=== PATIENT | male | born 1955 | race Caucasian/White ===

== ENCOUNTER 2020-01-26 08:18 | Day surgery (SDC) | payer MEDICARE, MEDICAID, SELFPAY ==
[2020-01-21 11:26] VITALS: BMI 44.9
--- NOTE | 2020-01-26 09:20 | HO.ANESPROP2 ---
[facility] Past Medical History Medical History CAD (coronary artery disease) COPD (chronic obstructive pulmonary disease) Elevated cholesterol HTN (hypertension) Myocardial infarction Surgical History Surgical History History of left-sided carotid endarterectomy History of right-sided carotid endarterectomy Hx of cardiac catheterization Social History Social History Alcohol intake: current Alcohol intake frequency: a few times a week Alcohol type: beer Smoking Status: Former smoker Smoking Quit Date: 01/2019 Second Hand Smoke Exposure: Yes Use of substances other than those prescribed or required for medical reasons: No Advance Directives: No Advance Directives Information Provided: No Advance Directives on File: No Meds Allergies Allergy/AdvReac Type Severity Reaction Status Date / Time lisinopril [Lisinopril] Allergy Severe ANGIOEDEMA, Verified 01/21/20 11:11 hives Home Medications Medication Instructions Recorded Confirmed Type albuterol sulfate [Ventolin HFA] 2 puff PO Q4-6H PRN 01/21/20 01/21/20 History atorvastatin 1 tab PO DAILY 01/21/20 01/21/20 History fluticasone furoate-vilanterol 1 puff PO DAILY 01/21/20 01/21/20 History [Breo Ellipta] gabapentin 1 cap PO DAILY 01/21/20 01/21/20 History glipizide 2 tab PO BID 01/21/20 01/21/20 History insulin glargine [Basaglar KwikPen 40 unit SUBCUT BEDTIME 01/21/20 01/21/20 History U-100 Insulin] losartan 1 tab PO DAILY 01/21/20 01/21/20 History metformin 1 tab PO BID 01/21/20 01/21/20 History metoprolol ta-hydrochlorothiaz 0.5 tab PO BID 01/21/20 01/21/20 History tamsulosin 2 cap PO DAILY 01/21/20 01/21/20 History umeclidinium [Incruse Ellipta] 1 puff PO DAILY 01/21/20 01/21/20 History Exam Exam Date and Time: January 26, 202020 Height,Weight and Vital Signs: Height 5 ft 7 in Weight 130.181 kg Airway Mallampati Class: III TM Dist: >3cm Neck ROM: Full Denture: Upper Partial: Lower Loose/Missing/Broken Teeth: No Heart: rrr+[id number] Lungs: CTA b/l Assessment and Plan Assessment Anesthesia Assessment: Anesthesia Plan Discussed and Chart Reviewed Final Anesthetic Review NPO: Yes ASA Class: III Final Preanesthetic Review: No Changes in Pt Med Stat, Meds/Allgs Chart Reviewed, Consent Obtained/Reviewed and Anes Risks/Benef Reviewed Patient Risk: Intermediate Procedure Risk: Low Assessment/Block/Sedation in SS: Assess/Block/Sedation-SS Anesthetic Plan Anesthetic Plan: MAC: Disposition: Standard PACU
[2020-01-26 09:29] VITALS: BP 140/79; PULSE 62; RESP 20; TEMP 36.2; O2SAT 96
[2020-01-26 09:43] LABS: Glucose, Whole Blood 173 mg/dL (60-115)
[2020-01-26] MEDS: Lactated Ringers 1,000 ML 50 ML IVCONT (09:48)
--- NOTE | 2020-01-26 09:50 | MHC.SHP ---
Pre-Procedural Eval Section A The patient is an INPATIENT: No Changes since office visit: No Cold of Flu in the past 2 weeks, No New Medical Problems, No Changes in Medication and No Patient answered all questions The History & Physical has been completed within 30 days and I have reviewed it.: Yes Section B Chief Complaint: Change in Bowel Habit Allergies: Allergies Allergy/AdvReac Type Severity Reaction Status Date / Time lisinopril [Lisinopril] Allergy Severe ANGIOEDEMA, Verified 01/21/20 11:11 hives Plan Patient has been examined and remains a candidate for the planned procedure
[2020-01-26 10:25] VITALS: BP 100/43; PULSE 74; RESP 16; TEMP 36.6; O2SAT 96
--- NOTE | 2020-01-26 10:29 | PM.OP ---
Brief Operative Note Date of Service: 01/26/20 Pre-op diagnosis: change in bowel habits Post-op diagnosis: same (colon polyps) Surgeon: Esteban Villarreal Anesthesia: MAC Estimated blood loss (mL): 5 Pathology: other (polyps cecum,50 cm, sigmoid) Condition: stable Disposition: PACU
[2020-01-26 10:40] VITALS: BP 131/60; PULSE 73; RESP 18; TEMP 36.6; O2SAT 95
--- NOTE | 2020-01-26 10:56 | OP_ITS ---
SURGEON: Esteban Villarreal MD INDICATIONS: Change in bowel habits and rectal bleeding. PREOPERATIVE DIAGNOSIS: POSTOPERATIVE DIAGNOSIS: PROCEDURE PERFORMED: Colonoscopy to the terminal ileum with biopsy and snare polypectomy. ESTIMATED BLOOD LOSS: COMPLICATIONS: ANESTHESIA: ASSISTANTS: SPECIMENS: MEDICATIONS: Monitored anesthesia care. DESCRIPTION OF PROCEDURE: History and physical performed. The risks and benefits of the procedure were explained to the patient and informed consent was obtained. The patient was placed in the left lateral decubitus position. A digital rectal exam was performed and was found to be normal. The Olympus pediatric video colonoscope was introduced into the rectum and advanced to the cecum without difficulty. The cecum was identified by transillumination, palpation, and identification of the ileocecal valve. Examination was performed. The scope was removed. He tolerated the procedure well and returned to the recovery area in stable condition. FINDINGS: The terminal ileum was normal. Visualized colonic mucosa was normal. There was some liquid stool coating the mucosa mainly in the right colon and transverse colon. This was washed and suctioned as best possible. A polyp in the cecum, measuring less than 5 mm, was removed with a biopsy forceps. A 6 mm polyp at 50 cm was removed with a snare and recovered via suction. There were several hyperplastic appearing polyps in the sigmoid, two of these were biopsied, all measured less than 10 mm. Retroflexed examination showed small internal hemorrhoids. There was some mild diverticulosis noted in the sigmoid. IMPRESSION: Colon polyps. RECOMMENDATION: Follow up with the biopsy results. MD CECY Mayfield/YANA / [id number]
--- NOTE | 2020-01-26 11:09 | HO.POSTANES ---
Post Anesthesia Evaluation Post Anesthesia Evaluation Vital Signs: Vital Signs Temp Pulse Resp BP Pulse Ox 01/26/20 10:40 97.8 F 73 18 131/60 95 01/26/20 10:25 97.8 F 74 16 100/43 L 96 01/26/20 09:29 97.2 F 62 20 140/79 H 96 Anesthesia: Monitored Mental Status: Awake Pain Control: Satisfactory Nausea/Vomiting: None Hydration: Adequate Anesthesia-Related Issues: No Anes. Related Issues
== END 2020-01-26 11:00 | disposition home or self-care (01) ==
PROVIDERS: Visit Provider Internal Medicine Gastroenterology
PROC: 0DJD8ZZ Inspection of Lower Intestinal Tract, Via Natural or Artificial Opening Endoscopic (ICD-10-PCS; CPT 45378; principal; 2020-01-26 09:30)
DX: R19.4 Change in bowel habit (principal); K59.00 Constipation, unspecified; K63.5 Polyp of colon; K57.30 Diverticulosis of large intestine without perforation or abscess without bleeding; K64.8 Other hemorrhoids; I10 Essential (primary) hypertension; E11.9 Type 2 diabetes mellitus without complications; J44.9 Chronic obstructive pulmonary disease, unspecified; E78.00 Pure hypercholesterolemia, unspecified; I25.10 Atherosclerotic heart disease of native coronary artery without angina pectoris; Z98.61 Coronary angioplasty status; Z79.4 Long term (current) use of insulin; Z79.51 Long term (current) use of inhaled steroids; Z79.82 Long term (current) use of aspirin; Z79.899 Other long term (current) drug therapy; Z88.8 Allergy status to other drugs, medicaments and biological substances
CPT/HCPCS: 45385; 45380; 82947; 88305

== ENCOUNTER 2020-04-27 07:46 | Outpatient (REF) | payer MEDICARE, MEDICAID, SELFPAY ==
[2020-04-27 10:39] LABS: Estimated Average Glucose 180 mg/dL; Hemoglobin A1c % 7.9 %
[2020-04-27 10:47] LABS: Alanine Aminotransferase 28 U/L (0-40); Albumin Level 3.9 g/dL (3.5-5.0); Alkaline Phosphatase 91 U/L (39-117); Anion Gap 11 (12-20); Aspartate Amino Transferase 17 U/L (5-37); Bilirubin Total 0.5 mg/dL (0.0-1.0); Blood Urea Nitrogen 19 mg/dL (9-16); Calcium 8.6 mg/dL (8.4-10.2); Carbon Dioxide 30 mmol/L (22-29); Chloride 101 mmol/L (96-108); Cholesterol 111 mg/dL; Estimated Glomerular Filt Rate > 60; Glucose Fasting 114 mg/dL (60-99); HDL Cholesterol 34 mg/dL; LDL Cholesterol Calculated 58 mg/dl; Potassium 3.9 mmol/L (3.3-5.1); Sodium 138 mmol/L (135-145); Total Protein 6.4 g/dL (6.5-8.0); Triglycerides 97 mg/dL
== END 2020-04-27 07:47 | disposition home or self-care (01) ==
LOC: HO.10HDL 07:46
PROVIDERS: Visit Provider Physician Assistant
DX: E11.9 Type 2 diabetes mellitus without complications (principal)
CPT/HCPCS: 36415; 80053; 80061; 83036

== ENCOUNTER 2020-05-20 08:25 | Outpatient (REF) | payer MEDICARE, MEDICAID, SELFPAY ==
--- NOTE | ~2020-05-20 | XR_ITS ---
EXAMINATION: XR CHEST CLINICAL INFORMATION: Dyspnea. COMPARISON: None TECHNIQUE: 2 views of the chest were obtained. FINDINGS: The lungs are well-expanded and clear of acute process. The heart size and pulmonary vascularity is normal. There is moderate ventral spondylosis. No lytic process seen.. XR/XR chest 2V IMPRESSION: Unremarkable chest exam.
== END 2020-05-20 08:26 | disposition home or self-care (01) ==
LOC: HO.XRAY 08:25
PROVIDERS: PCP Physician Assistant; Visit Provider Physician Assistant
DX: R06.00 Dyspnea, unspecified (principal)
CPT/HCPCS: 71046

== ENCOUNTER 2021-01-16 07:44 | Outpatient (REF) | payer MEDICARE, MEDICAID, SELFPAY | END 2021-01-16 07:45 | disposition home or self-care (01) | LOC: HO.10HDL 07:44 | PROVIDERS: Visit Provider Physician Assistant | DX: J44.9 Chronic obstructive pulmonary disease, unspecified (principal) | CPT/HCPCS: 86900; 86901 ==

== ENCOUNTER 2021-05-02 07:35 | Outpatient (REF) | payer MEDICARE, MEDICAID, SELFPAY ==
[2021-05-02 10:34] LABS: Estimated Average Glucose 166 mg/dL; Hemoglobin A1c % 7.4 %
[2021-05-02 10:47] LABS: Alanine Aminotransferase 18 U/L (0-40); Albumin Level 4.2 g/dL (3.5-5.0); Alkaline Phosphatase 73 U/L (39-117); Anion Gap 16 (12-20); Aspartate Amino Transferase 16 U/L (5-37); Bilirubin Total 0.7 mg/dL (0.0-1.0); Blood Urea Nitrogen 19 mg/dL (9-16); Calcium 9.7 mg/dL (8.4-10.2); Carbon Dioxide 24 mmol/L (22-29); Chloride 100 mmol/L (96-108); Cholesterol 132 mg/dL; Estimated Glomerular Filt Rate > 60; Glucose Fasting 117 mg/dL (60-99); HDL Cholesterol 31 mg/dL; LDL Cholesterol Calculated 68 mg/dl; Potassium 3.9 mmol/L (3.3-5.1); Sodium 136 mmol/L (135-145); Total Protein 6.9 g/dL (6.5-8.0); Triglycerides 165 mg/dL
== END 2021-05-02 07:36 | disposition home or self-care (01) ==
LOC: HO.10HDL 07:35
PROVIDERS: Visit Provider Physician Assistant
DX: E11.40 Type 2 diabetes mellitus with diabetic neuropathy, unspecified (principal); E78.2 Mixed hyperlipidemia
CPT/HCPCS: 36415; 80053; 80061; 83036

== ENCOUNTER 2021-06-12 07:42 | Outpatient (REF) | payer MEDICARE, MEDICAID, SELFPAY ==
[2021-06-12 10:55] LABS: Estimated Average Glucose 146 mg/dL; Hemoglobin A1c % 6.7 %
[2021-06-12 11:08] LABS: Alanine Aminotransferase 21 U/L (0-40); Albumin Level 4.1 g/dL (3.5-5.0); Alkaline Phosphatase 71 U/L (39-117); Anion Gap 12 (12-20); Aspartate Amino Transferase 16 U/L (5-37); Bilirubin Total 0.5 mg/dL (0.0-1.0); Blood Urea Nitrogen 18 mg/dL (9-16); Calcium 9.3 mg/dL (8.4-10.2); Carbon Dioxide 27 mmol/L (22-29); Chloride 101 mmol/L (96-108); Cholesterol 126 mg/dL; Estimated Glomerular Filt Rate > 60; Glucose Random 102 mg/dL (60-115); HDL Cholesterol 26 mg/dL; LDL Cholesterol Calculated 69 mg/dl; Potassium 3.8 mmol/L (3.3-5.1); Sodium 136 mmol/L (135-145); Total Protein 6.7 g/dL (6.5-8.0); Triglycerides 159 mg/dL
== END 2021-06-12 07:43 | disposition home or self-care (01) ==
LOC: HO.10HDL 07:42
PROVIDERS: Visit Provider Physician Assistant
DX: E11.9 Type 2 diabetes mellitus without complications (principal)
CPT/HCPCS: 36415; 80053; 80061; 83036

== ENCOUNTER 2021-09-18 07:41 | Outpatient (REF) | payer MEDICARE, MEDICAID, SELFPAY ==
[2021-09-18 10:26] LABS: MANUAL DIFF FLAG NO
[2021-09-18 10:45] LABS: Basophils Percent Auto 0.7 % (0-2); Eosinophils Absolute Auto 0.3 X10*3/uL (0.0-0.4); Eosinophils Percent Auto 4.7 % (0-4); Hematocrit 41.2 % (42.0-52.0); Hemoglobin 13.8 g/dl (14.0-18.0); Imm Gran Abs Auto 0.03 X10*3/uL (0.00-0.03); Imm Gran Pct Auto 0.5 % (0.0-0.4); Lymphocytes Absolute Auto 1.6 X10*3/uL (1.2-4.9); Lymphocytes Percent Auto 26.4 % (20-40); Mean Corpuscular HGB Conc 33.5 g/dl (31.0-36.0); Mean Corpuscular Hemoglobin 29.1 pg (27.0-33.0); Mean Corpuscular Volume 86.9 fL (80.0-98.0); Monocytes Absolute Auto 0.4 X10*3/uL (0.1-1.2); Monocytes Percent Auto 7.2 % (2-11); Neutrophils Absolute Auto 3.7 x10*3/uL (2.0-8.3); Neutrophils Percent Auto 60.5 % (45-73); Platelet Count 175 X10*3/uL (160-400); Red Blood Count 4.74 X10*6/uL (4.60-5.80); Red Cell Distribution Width 13.1 % (11.0-16.0); White Blood Count 6.1 X10*3/uL (4.8-10.8)
[2021-09-18 10:55] LABS: Estimated Average Glucose 143 mg/dL; Hemoglobin A1c % 6.6 %
[2021-09-18 11:00] LABS: Alanine Aminotransferase 22 U/L (0-40); Albumin Level 4.2 g/dL (3.5-5.0); Alkaline Phosphatase 71 U/L (39-117); Anion Gap 12 (12-20); Aspartate Amino Transferase 19 U/L (5-37); Bilirubin Total 0.6 mg/dL (0.0-1.0); Blood Urea Nitrogen 19 mg/dL (9-16); Calcium 9.6 mg/dL (8.4-10.2); Carbon Dioxide 27 mmol/L (22-29); Chloride 101 mmol/L (96-108); Cholesterol 140 mg/dL; Estimated Glomerular Filt Rate > 60; Glucose Fasting 120 mg/dL (60-99); HDL Cholesterol 37 mg/dL; LDL Cholesterol Calculated 70 mg/dl; Potassium 3.8 mmol/L (3.3-5.1); Sodium 136 mmol/L (135-145); Total Protein 6.6 g/dL (6.5-8.0); Triglycerides 169 mg/dL
== END 2021-09-18 07:42 | disposition home or self-care (01) ==
LOC: HO.10HDLR 07:41
PROVIDERS: Visit Provider Physician Assistant
DX: E11.9 Type 2 diabetes mellitus without complications (principal); I25.10 Atherosclerotic heart disease of native coronary artery without angina pectoris; I10 Essential (primary) hypertension
CPT/HCPCS: 36415; 80053; 80061; 83036; 85025; 93005; 99212

== ENCOUNTER 2021-12-25 07:39 | Outpatient (REF) | payer MEDICARE, MEDICAID, SELFPAY ==
[2021-12-25 10:27] LABS: MANUAL DIFF FLAG NO
[2021-12-25 10:34] LABS: Basophils Percent Auto 0.7 % (0-2); Eosinophils Absolute Auto 0.2 X10*3/uL (0.0-0.4); Eosinophils Percent Auto 4.1 % (0-4); Hematocrit 37.6 % (42.0-52.0); Hemoglobin 12.9 g/dl (14.0-18.0); Imm Gran Abs Auto 0.05 X10*3/uL (0.00-0.03); Imm Gran Pct Auto 1.2 % (0.0-0.4); Lymphocytes Absolute Auto 1.1 X10*3/uL (1.2-4.9); Lymphocytes Percent Auto 26.4 % (20-40); Mean Corpuscular HGB Conc 34.3 g/dl (31.0-36.0); Mean Corpuscular Hemoglobin 29.1 pg (27.0-33.0); Mean Corpuscular Volume 84.7 fL (80.0-98.0); Monocytes Absolute Auto 0.4 X10*3/uL (0.1-1.2); Monocytes Percent Auto 10.6 % (2-11); Neutrophils Absolute Auto 2.4 x10*3/uL (2.0-8.3); Platelet Count 198 X10*3/uL (160-400); Red Blood Count 4.44 X10*6/uL (4.60-5.80); Red Cell Distribution Width 12.5 % (11.0-16.0); White Blood Count 4.2 X10*3/uL (4.8-10.8)
[2021-12-25 10:42] LABS: Estimated Average Glucose 154 mg/dL
[2021-12-25 11:24] LABS: Alanine Aminotransferase 30 U/L (0-40); Albumin Level 4.1 g/dL (3.5-5.0); Alkaline Phosphatase 87 U/L (39-117); Anion Gap 15 (12-20); Aspartate Amino Transferase 21 U/L (5-37); Bilirubin Total 0.8 mg/dL (0.0-1.0); Blood Urea Nitrogen 21 mg/dL (9-16); Calcium 9.2 mg/dL (8.4-10.2); Carbon Dioxide 27 mmol/L (22-29); Chloride 98 mmol/L (96-108); Cholesterol 137 mg/dL; Estimated Glomerular Filt Rate > 60; Glucose Fasting 134 mg/dL (60-99); HDL Cholesterol 27 mg/dL; LDL Cholesterol Calculated 68 mg/dl; Sodium 136 mmol/L (135-145); Total Protein 6.6 g/dL (6.5-8.0); Triglycerides 211 mg/dL
== END 2021-12-25 07:40 | disposition home or self-care (01) ==
LOC: HO.10HDLR 07:39
PROVIDERS: Visit Provider Physician Assistant
DX: E11.9 Type 2 diabetes mellitus without complications (principal)
CPT/HCPCS: 36415; 80053; 80061; 83036; 85025

== ENCOUNTER 2022-02-26 07:42 | Outpatient (REF) | payer MEDICARE, MEDICAID, SELFPAY ==
[2022-02-26 10:55] LABS: MANUAL DIFF FLAG NO
[2022-02-26 11:04] LABS: Basophils Percent Auto 0.7 % (0-2); Eosinophils Absolute Auto 0.3 X10*3/uL (0.0-0.4); Eosinophils Percent Auto 4.6 % (0-4); Hematocrit 42.5 % (42.0-52.0); Hemoglobin 14.2 g/dl (14.0-18.0); Imm Gran Abs Auto 0.03 X10*3/uL (0.00-0.03); Imm Gran Pct Auto 0.5 % (0.0-0.4); Lymphocytes Absolute Auto 1.7 X10*3/uL (1.2-4.9); Mean Corpuscular HGB Conc 33.4 g/dl (31.0-36.0); Mean Corpuscular Hemoglobin 28.4 pg (27.0-33.0); Mean Platelet Volume 11.2 fL (9.4-12.4); Monocytes Absolute Auto 0.4 X10*3/uL (0.1-1.2); Monocytes Percent Auto 8.1 % (2-11); Neutrophils Percent Auto 55.1 % (45-73); Platelet Count 190 X10*3/uL (160-400); Red Cell Distribution Width 12.5 % (11.0-16.0); White Blood Count 5.5 X10*3/uL (4.8-10.8)
[2022-02-26 11:11] LABS: Estimated Average Glucose 169 mg/dL; Hemoglobin A1c % 7.5 %
[2022-02-26 11:25] LABS: Alanine Aminotransferase 21 U/L (0-40); Albumin Level 4.1 g/dL (3.5-5.0); Alkaline Phosphatase 75 U/L (39-117); Anion Gap 13 (12-20); Aspartate Amino Transferase 17 U/L (5-37); Bilirubin Total 0.5 mg/dL (0.0-1.0); Blood Urea Nitrogen 20 mg/dL (9-16); Carbon Dioxide 28 mmol/L (22-29); Chloride 99 mmol/L (96-108); Cholesterol 119 mg/dL; Estimated Glomerular Filt Rate > 60; Glucose Fasting 105 mg/dL (60-99); HDL Cholesterol 36 mg/dL; LDL Cholesterol Calculated 54 mg/dl; Potassium 3.9 mmol/L (3.3-5.1); Sodium 136 mmol/L (135-145); Total Protein 6.6 g/dL (6.5-8.0); Triglycerides 145 mg/dL
== END 2022-02-26 07:43 | disposition home or self-care (01) ==
LOC: HO.10HDLR 07:42
PROVIDERS: Visit Provider Physician Assistant
DX: E11.9 Type 2 diabetes mellitus without complications (principal)
CPT/HCPCS: 36415; 80053; 80061; 83036; 85025

== ENCOUNTER 2022-05-14 07:39 | Outpatient (REF) | payer MEDICARE, MEDICAID, SELFPAY ==
[2022-05-14 11:09] LABS: MANUAL DIFF FLAG NO
[2022-05-14 11:12] LABS: Basophils Percent Auto 0.5 % (0-2); Eosinophils Absolute Auto 0.2 X10*3/uL (0.0-0.4); Hematocrit 42.4 % (42.0-52.0); Hemoglobin 14.4 g/dl (14.0-18.0); Imm Gran Abs Auto 0.03 X10*3/uL (0.00-0.03); Imm Gran Pct Auto 0.5 % (0.0-0.4); Lymphocytes Absolute Auto 1.4 X10*3/uL (1.2-4.9); Mean Corpuscular Hemoglobin 28.7 pg (27.0-33.0); Mean Corpuscular Volume 84.6 fL (80.0-98.0); Mean Platelet Volume 11.2 fL (9.4-12.4); Monocytes Absolute Auto 0.5 X10*3/uL (0.1-1.2); Neutrophils Absolute Auto 3.9 x10*3/uL (2.0-8.3); Platelet Count 193 X10*3/uL (160-400); Red Blood Count 5.01 X10*6/uL (4.60-5.80); Red Cell Distribution Width 13.2 % (11.0-16.0)
[2022-05-14 12:04] LABS: Alanine Aminotransferase 19 U/L (0-40); Albumin Level 3.9 g/dL (3.5-5.0); Alkaline Phosphatase 72 U/L (39-117); Anion Gap 15 (12-20); Aspartate Amino Transferase 18 U/L (5-37); Bilirubin Total 0.7 mg/dL (0.0-1.0); Blood Urea Nitrogen 18 mg/dL (9-16); Calcium 9.6 mg/dL (8.4-10.2); Carbon Dioxide 24 mmol/L (22-29); Chloride 101 mmol/L (96-108); Cholesterol 139 mg/dL; Estimated Glomerular Filt Rate > 60; Glucose Fasting 153 mg/dL (60-99); HDL Cholesterol 32 mg/dL; LDL Cholesterol Calculated 84 mg/dl; Potassium 4.2 mmol/L (3.3-5.1); Sodium 136 mmol/L (135-145); Total Protein 6.3 g/dL (6.5-8.0); Triglycerides 116 mg/dL
[2022-05-14 12:06] LABS: Estimated Average Glucose 166 mg/dL; Hemoglobin A1c % 7.4 %
== END 2022-05-14 07:40 | disposition home or self-care (01) ==
LOC: HO.10HDL 07:39
PROVIDERS: Visit Provider Physician Assistant
DX: E11.9 Type 2 diabetes mellitus without complications (principal)
CPT/HCPCS: 36415; 80053; 80061; 83036; 85025

== ENCOUNTER 2022-08-20 07:45 | Outpatient (REF) | payer MEDICARE, MEDICAID, SELFPAY ==
[2022-08-20 10:43] LABS: Alanine Aminotransferase 17 U/L (0-40); Albumin Level 4.3 g/dL (3.5-5.0); Alkaline Phosphatase 77 U/L (39-117); Anion Gap 14 (12-20); Aspartate Amino Transferase 15 U/L (5-37); Bilirubin Total 0.8 mg/dL (0.0-1.0); Blood Urea Nitrogen 22 mg/dL (9-16); Calcium 9.2 mg/dL (8.4-10.2); Carbon Dioxide 28 mmol/L (22-29); Chloride 100 mmol/L (96-108); Cholesterol 140 mg/dL; Estimated Glomerular Filt Rate > 60; Glucose Random 116 mg/dL (60-115); HDL Cholesterol 33 mg/dL; LDL Cholesterol Calculated 77 mg/dl; Potassium 4.1 mmol/L (3.3-5.1); Sodium 138 mmol/L (135-145); Total Protein 6.8 g/dL (6.5-8.0); Triglycerides 152 mg/dL
[2022-08-20 10:49] LABS: Estimated Average Glucose 151 mg/dL; Hemoglobin A1c % 6.9 %
[2022-08-20 11:23] LABS: Creatinine Urine 34.82 mg/dL; Microalbum/Creatinine Ratio Ur 376.2 ug/mg cr
== END 2022-08-20 07:46 | disposition home or self-care (01) ==
LOC: HO.10HDL 07:45
PROVIDERS: Visit Provider Physician Assistant
DX: E11.9 Type 2 diabetes mellitus without complications (principal)
CPT/HCPCS: 36415; 80053; 80061; 82043; 83036

== ENCOUNTER → 2022-11-09 11:33 | Outpatient (BNVA) | payer MEDICARE, MEDICAID, SELFPAY | PROVIDERS: PCP Physician Assistant; Referring Provider Physician Assistant; Visit Provider Internal Medicine Cardiovascular Disease | DX: I25.10 Atherosclerotic heart disease of native coronary artery without angina pectoris (principal); I10 Essential (primary) hypertension | CPT/HCPCS: 93005; 99212 ==

== ENCOUNTER 2022-11-09 11:35 | Outpatient (AMB) | payer MEDICARE, MEDICAID, SELFPAY ==
--- NOTE | 2022-11-09 11:35 | MHC.OFFVIS ---
Intake Vital Signs 11/09/22 11:36 Height 5 ft 8 in Weight 273 lb 5.971 oz BMI 41.6 BP 120/82 Blood Pressure Location Lt brachial Position Sitting Pulse 55 Intake Visit Reasons: 1 year follow up Intake Note: 1 year follow-up with ekg feeling good Net Mobile Developer Required: No Allergies lisinopril [Lisinopril] Allergy (Severe, Verified 09/18/21 13:18) ANGIOEDEMA, hives Medication List - Last Reconciled 11/09/22 by Manny Gamez MD albuterol sulfate 90 mcg/actuation (Ventolin HFA) 2 puffs PO Q4-6H PRN aspirin (Adult Low Dose Aspirin) 81 mg PO DAILY atorvastatin 80 mg PO DAILY fluticasone furoate-vilanterol 100-25 mcg/dose (Breo Ellipta) 1 puff PO DAILY gabapentin 1 cap PO DAILY glipizide 2 tabs PO BID insulin glargine (Basaglar KwikPen U-100 Insulin) 40 units subcut BEDTIME losartan 50 mg PO DAILY metformin 1,000 mg PO BID metoprolol ta-hydrochlorothiaz 50-25 mg 0.5 tabs PO BID tamsulosin 0.8 mg PO DAILY umeclidinium 62.5 mcg/actuation (Incruse Ellipta) 1 inh PO DAILY HPI HPI Comments History of Present Illness Details Yogi comes for follow-up. From cardiac perspective he has been doing well. He is taking all his medications. His last LDL is elevated in the upper 70 range. This has remained elevated for the last couple years. He takes all his medications. With exertion he has no anginal sounding chest discomfort. However he says that he is limited because of cramping in his legs with walking. He is being followed by vascular surgery at [facility]. He denies any other cardiac symptoms. No orthopnea, PND, leg edema. No prolonged palpitations, lightheadedness, syncope. He says diabetes under good control. [facility] Medical History CAD (coronary artery disease) COPD (chronic obstructive pulmonary disease) Elevated cholesterol HTN (hypertension) Myocardial infarction Surgical History History of left-sided carotid endarterectomy History of right-sided carotid endarterectomy Stented coronary artery Family History Father Heart disease Mother No problems noted. Social History Alcohol intake: current Alcohol intake frequency: a few times a week Alcohol type: beer Second Hand Smoke Exposure: Yes Review of Systems Const Denies chills, Denies fatigue, Denies fever(s), Denies frequent falls, Denies weakness, Denies weight gain and Denies weight loss ENT Denies dizziness Card Denies chest pain, Denies leg edema, Denies lightheadedness, Denies palpitations, Denies dyspnea, Denies dyspnea on exertion, Denies orthopnea and Denies other (loss of consciousness) Resp Denies cough, Denies dyspnea and Denies dyspnea on exertion GI Denies hematochezia and Denies change in stool character Musc Denies abnormal gait, Denies muscle weakness, Denies numbness, Denies radiating pain into limb and Denies tingling Neuro Denies abnormal gait, Denies dizziness, Denies frequent falls, Denies numbness, Denies tingling and Denies weakness Endo Denies fatigue and Denies palpitations Physical Exam Vital Signs: Last Vital Signs Pulse 55 11/09/22 11:36 BP 120/82 11/09/22 11:36 BMI result Body Mass Index 41.6 Const General: cooperative, comfortable, no acute distress, alert and awake Nutritional Appearance: obese Orientation/consciousness: patient oriented x3 Limitations: no limitations Neck Neck: Yes trachea midline, Yes supple, Yes no JVD and Yes other (Bilateral carotid endarterectomy scar) Resp Effort & Inspection: normal respiratory effort Auscultation: clear to auscultation bilaterally Cardio Jugular venous distension: no JVD Palpation: normal PMI Rate: regular rate Rhythm: regular rhythm Heart sounds: S1 normal heart sound present, S2 normal heart sound present, no click, no gallops, no murmurs and no rubs GI Inspection: Yes obesity Auscultation: normal bowel sounds Skin General skin exam: no rashes or lesions noted Neuro General: patient oriented x3 and no focal motor deficits Extrem General: Yes no clubbing, cyanosis or edema Office Procedures EKG Details: EKG shows sinus bradycardia at 55 beats per minute [id number], Complete Assessment & Plan Assessment & Plan (1) CAD (coronary artery disease): Code(s): I25.10 - Atherosclerotic heart disease of [place] coronary artery without angina pectoris Plan: CAD which has remained stable. Has diffuse vascular disease. Continue aggressive medical therapy. His LDL is not well optimized. Discussed with him avoid adding ezetimibe 10 mg to his regiment as adjuvant therapy. Role of therapy was discussed he understands agrees. Target goal LDL closer to 50 mg/dL. Follow-up lipid panel in 3 months time. Continue high-intensity statin therapy. Continue aggressive diabetes management with goal hemoglobin A1c less than 7%. Continue aggressive control blood pressure. Continue low-dose aspirin therapy for life. Advised to continue follow-up vascular disease with vascular surgery and advise me about the care as well. (2) HTN (hypertension): Code(s): I10 - Essential (primary) hypertension Plan: Hypertension is currently well optimized advised to monitor blood pressure at home maintain a log. Target goal blood pressure less than 130/84. Low-salt diet was discussed. Continue to participate in regular physical activity and weight loss program. He understands agrees. Follow up in the clinic in 1 year's time, sooner p.r.n.. Thank you for allowing me to partake in his care Orders: Orders Lipid Panel 3 Months I25.10 - Atherosclerotic heart disease of [place] coronary artery without angina pectoris Medications: New ezetimibe 10 mg PO DAILY 30 tabs 11RF Coding Level of Care Code Est Pt Level 4 (49539) Diagnoses CAD (coronary artery disease) I25.10 HTN (hypertension) I10 CPT Codes EKG - CPT: 90432-[id number], Complete ([id number])
[2022-11-09 11:36] VITALS: BP 120/82; PULSE 55; BMI 41.6
== END 2022-11-09 12:50 | disposition home or self-care (01) ==
PROVIDERS: PCP Physician Assistant; Referring Provider Physician Assistant; Visit Provider Internal Medicine Cardiovascular Disease
DX: I25.10 Atherosclerotic heart disease of native coronary artery without angina pectoris (principal); I10 Essential (primary) hypertension
CPT/HCPCS: 93010; 99214

== ENCOUNTER 2023-02-18 07:33 | Outpatient (REF) | payer MEDICARE, MEDICAID, SELFPAY ==
[2023-02-18 10:29] LABS: MANUAL DIFF FLAG NO
[2023-02-18 10:35] LABS: Basophils Absolute Auto 0.1 X10*3/uL (0.0-0.2); Basophils Percent Auto 0.7 % (0-2); Eosinophils Absolute Auto 0.3 X10*3/uL (0.0-0.4); Eosinophils Percent Auto 3.8 % (0-4); Hematocrit 40.8 % (42.0-52.0); Hemoglobin 13.5 g/dl (14.0-18.0); Imm Gran Abs Auto 0.06 X10*3/uL (0.00-0.03); Imm Gran Pct Auto 0.9 % (0.0-0.4); Lymphocytes Absolute Auto 1.9 X10*3/uL (1.2-4.9); Lymphocytes Percent Auto 27.1 % (20-40); Mean Corpuscular HGB Conc 33.1 g/dl (31.0-36.0); Mean Corpuscular Hemoglobin 28.5 pg (27.0-33.0); Mean Corpuscular Volume 86.3 fL (80.0-98.0); Monocytes Absolute Auto 0.5 X10*3/uL (0.1-1.2); Monocytes Percent Auto 7.3 % (2-11); Neutrophils Absolute Auto 4.1 x10*3/uL (2.0-8.3); Neutrophils Percent Auto 60.2 % (45-73); Platelet Count 203 X10*3/uL (160-400); Red Blood Count 4.73 X10*6/uL (4.60-5.80); Red Cell Distribution Width 12.7 % (11.0-16.0); White Blood Count 6.9 X10*3/uL (4.8-10.8)
[2023-02-18 11:04] LABS: Cholesterol 87 mg/dL (<200); HDL Cholesterol 27 mg/dL (>40); LDL Cholesterol Calculated 34 mg/dL (<100); Triglycerides 133 mg/dL (<150)
[2023-02-18 11:07] LABS: Alanine Aminotransferase 23 U/L (0-40); Alkaline Phosphatase 74 U/L (39-117); Anion Gap 14 (12-20); Aspartate Amino Transferase 18 U/L (5-37); Bilirubin Total 0.5 mg/dL (0.0-1.0); Blood Urea Nitrogen 21 mg/dL (9-16); Calcium 9.3 mg/dL (8.4-10.2); Carbon Dioxide 26 mmol/L (22-29); Chloride 102 mmol/L (96-108); Estimated Glomerular Filt Rate > 60; Glucose Random 138 mg/dL (60-115); Potassium 3.9 mmol/L (3.3-5.1); Sodium 138 mmol/L (135-145); Total Protein 6.8 g/dL (6.5-8.0)
[2023-02-18 11:09] LABS: Estimated Average Glucose 163 mg/dL; Hemoglobin A1c % 7.3 % (<6.0)
[2023-02-18 11:30] LABS: Creatinine Urine 51.17 mg/dL; Microalbum/Creatinine Ratio Ur 287.2 ug/mg cr (<30)
== END 2023-02-18 07:34 | disposition home or self-care (01) ==
LOC: HO.10HDL 07:33
PROVIDERS: PCP Physician Assistant; Visit Provider Internal Medicine Cardiovascular Disease
DX: I25.10 Atherosclerotic heart disease of native coronary artery without angina pectoris (principal); E11.9 Type 2 diabetes mellitus without complications
CPT/HCPCS: 36415; 80053; 80061; 82043; 82570; 83036; 85025

== ENCOUNTER 2023-09-16 07:34 | Outpatient (REF) | payer OTHER, SELFPAY ==
[2023-09-16 11:21] LABS: MANUAL DIFF FLAG NO
[2023-09-16 11:28] LABS: Basophils Percent Auto 0.6 % (0-2); Eosinophils Absolute Auto 0.3 X10*3/uL (0.0-0.4); Eosinophils Percent Auto 4.5 % (0-4); Hematocrit 40.4 % (42.0-52.0); Hemoglobin 13.7 g/dl (14.0-18.0); Imm Gran Abs Auto 0.05 X10*3/uL (0.00-0.03); Imm Gran Pct Auto 0.7 % (0.0-0.4); Lymphocytes Percent Auto 28.4 % (20-40); Mean Corpuscular HGB Conc 33.9 g/dl (31.0-36.0); Mean Corpuscular Volume 85.6 fL (80.0-98.0); Mean Platelet Volume 10.4 fL (9.4-12.4); Monocytes Absolute Auto 0.5 X10*3/uL (0.1-1.2); Neutrophils Absolute Auto 4.2 x10*3/uL (2.0-8.3); Neutrophils Percent Auto 58.8 % (45-73); Platelet Count 217 X10*3/uL (160-400); Red Blood Count 4.72 X10*6/uL (4.60-5.80); Red Cell Distribution Width 13.5 % (11.0-16.0); White Blood Count 7.1 X10*3/uL (4.8-10.8)
[2023-09-16 11:44] LABS: Alanine Aminotransferase 27 U/L (0-40); Albumin Level 4.1 g/dL (3.5-5.0); Alkaline Phosphatase 81 U/L (39-117); Anion Gap 12 (12-20); Aspartate Amino Transferase 20 U/L (5-37); Bilirubin Total 0.4 mg/dL (0.0-1.0); Blood Urea Nitrogen 18 mg/dL (9-16); Calcium 9.3 mg/dL (8.4-10.2); Carbon Dioxide 26 mmol/L (22-29); Chloride 103 mmol/L (96-108); Cholesterol 86 mg/dL (<200); Estimated Glomerular Filt Rate > 60; Glucose Random 111 mg/dL (60-115); HDL Cholesterol 28 mg/dL (>40); LDL Cholesterol Calculated 16 mg/dL (<100); Sodium 137 mmol/L (135-145); Total Protein 6.9 g/dL (6.5-8.0); Triglycerides 213 mg/dL (<150)
[2023-09-16 11:45] LABS: Estimated Average Glucose 148 mg/dL; Hemoglobin A1c % 6.8 % (<6.0)
== END 2023-09-16 07:35 | disposition home or self-care (01) ==
LOC: HO.10HDL 07:34
PROVIDERS: Visit Provider Physician Assistant
DX: E11.40 Type 2 diabetes mellitus with diabetic neuropathy, unspecified (principal)
CPT/HCPCS: 36415; 80053; 80061; 83036; 85025

== ENCOUNTER 2023-12-10 10:35 | Outpatient (AMB) | payer MEDICARE, MEDICAID, SELFPAY ==
[2023-12-10 10:37] VITALS: BP 124/76; PULSE 73; BMI 40.6
--- NOTE | 2023-12-10 10:37 | MHC.OFFVIS ---
Vital Signs 12/10/23 10:37 Height 5 ft 8 in Weight 266 lb 12.149 oz BMI 40.6 BP 124/76 Blood Pressure Location Lt brachial Position Sitting Pulse 73 Intake Visit Reasons: 1 year follow up Intake Note: 1 year follow-up with ekg feeling good [employer] General Supervisor Required: No Allergies lisinopril [Lisinopril] Allergy (Severe, Verified 09/18/21 13:18) ANGIOEDEMA, hives Medication List - Last Reconciled 12/10/23 by Manny Gamez MD albuterol sulfate 90 mcg/actuation (Ventolin HFA) 2 puffs PO Q4-6H PRN aspirin (Adult Low Dose Aspirin) 81 mg PO DAILY atorvastatin 80 mg PO DAILY ezetimibe 10 mg PO DAILY fluticasone furoate-vilanterol 100-25 mcg/dose (Breo Ellipta) 1 puff PO DAILY gabapentin 1 cap PO DAILY glipizide 2 tabs PO BID insulin glargine (Basaglar KwikPen U-100 Insulin) 40 units subcut BEDTIME losartan 50 mg PO DAILY metformin 1,000 mg PO BID metoprolol ta-hydrochlorothiaz 50-25 mg 0.5 tabs PO BID tamsulosin 0.8 mg PO DAILY umeclidinium 62.5 mcg/actuation (Incruse Ellipta) 1 inh PO DAILY HPI Comments Details: Yogi comes for follow-up. He has been doing well from cardiac perspective. Does no new symptoms except for his usual shortness of breath that he gets with the shortness of breath. There was no worsening. No exertional chest pain. Remains active. Takes all his medications. Blood pressure is been well controlled. Denies any prolonged palpitation is, lightheadedness, syncope. No orthopnea, PND, leg edema. [facility] Medical History COPD (chronic obstructive pulmonary disease) Elevated cholesterol Myocardial infarction CAD (coronary artery disease) HTN (hypertension) Surgical History Stented coronary artery History of left-sided carotid endarterectomy History of right-sided carotid endarterectomy Family History Father Heart disease Mother No problems noted. Social History Alcohol intake: current Alcohol intake frequency: a few times a week Alcohol type: beer Second Hand Smoke Exposure: Yes Review of Systems Const Denies chills, Denies fatigue, Denies fever(s), Denies frequent falls, Denies weakness, Denies weight gain and Denies weight loss ENT Denies dizziness Card Denies chest pain, Denies leg edema, Denies lightheadedness, Denies palpitations, Denies dyspnea, Denies dyspnea on exertion, Denies orthopnea and Denies other (loss of consciousness) Resp Denies cough, Denies dyspnea and Denies dyspnea on exertion GI Denies hematochezia and Denies change in stool character Musc Denies abnormal gait, Denies muscle weakness, Denies numbness, Denies radiating pain into limb and Denies tingling Neuro Denies abnormal gait, Denies dizziness, Denies frequent falls, Denies numbness, Denies tingling and Denies weakness Endo Denies fatigue and Denies palpitations Physical Exam Vital Signs: Last Vital Signs Pulse 73 12/10/23 10:37 BP 124/76 12/10/23 10:37 BMI result Body Mass Index 40.6 Const General: cooperative, comfortable, no acute distress, alert and awake Nutritional Appearance: obese Orientation/consciousness: patient oriented x3 Limitations: no limitations Neck Neck: Yes trachea midline, Yes supple, Yes no JVD and Yes other (Bilateral carotid endarterectomy scar) Resp Effort & Inspection: normal respiratory effort Auscultation: clear to auscultation bilaterally Cardio Jugular venous distension: no JVD Palpation: normal PMI Rate: regular rate Rhythm: regular rhythm Heart sounds: S1 normal heart sound present, S2 normal heart sound present, no click, no gallops, no murmurs and no rubs GI Inspection: Yes obesity Auscultation: normal bowel sounds Skin General skin exam: no rashes or lesions noted Neuro General: patient oriented x3 and no focal motor deficits Extrem General: Yes no clubbing, cyanosis or edema Office Procedures EKG Details: EKG shows normal sinus rhythm with nonspecific T-wave changes [id number], Complete Assessment & Plan Assessment & Plan (1) CAD (coronary artery disease): Code(s): I25.10 - Atherosclerotic heart disease of [place] coronary artery without angina pectoris Category: Medical Plan: CAD with remote stenting 10 years ago. Will schedule him for exercise myocardial perfusion imaging to evaluate for progressive coronary disease and stent patency. Will be scheduled in near future. Further treatment finding. Otherwise continue aggressive medical therapy with aspirin. LDL is significantly well optimized. I would consider stopping Zetia 10 mg. Continue atorvastatin 80 mg. Follow-up lipid panel in 3 months. Target goal LDL closer to 50 mg/dL. Continue aggressive blood pressure control. Continue participate in regular physical activity and weight loss program. (2) HTN (hypertension): Code(s): I10 - Essential (primary) hypertension Category: Medical Plan: Hypertension which is currently well optimized advised to monitor blood pressure at home maintain a log. Goal blood pressure less than 130/84. Low-salt diet was discussed advised to participate in regular physical activity and weight loss program. Will follow up in the clinic in 1 year's time, sooner p.r.n.. Thank you for allowing me to partake in his care Orders: Orders NM cardiolite stress test 2 Weeks I25.10 - Atherosclerotic heart disease of [place] coronary artery without angina pectoris, R07.9 - Chest pain, unspecified CA stress test Today I25.10 - Atherosclerotic heart disease of [place] coronary artery without angina pectoris Coding Level of Care Code Est Pt Level 4 (47910) Diagnoses CAD (coronary artery disease) I25.10 HTN (hypertension) I10 CPT Codes EKG - CPT: 12883-[id number], Complete ([id number])
== END 2023-12-10 11:03 | disposition home or self-care (01) ==
PROVIDERS: PCP Physician Assistant; Visit Provider Internal Medicine Cardiovascular Disease
DX: I25.10 Atherosclerotic heart disease of native coronary artery without angina pectoris (principal); I10 Essential (primary) hypertension
CPT/HCPCS: 93010; 99214

== ENCOUNTER → 2023-12-10 10:35 | Outpatient (BNVA) | payer OTHER, SELFPAY | PROVIDERS: PCP Physician Assistant; Visit Provider Internal Medicine Cardiovascular Disease | DX: I25.10 Atherosclerotic heart disease of native coronary artery without angina pectoris (principal); I10 Essential (primary) hypertension; R07.9 Chest pain, unspecified | CPT/HCPCS: 93005; 99212 ==

== ENCOUNTER → 2024-02-21 07:41 | Outpatient (REF) | payer MEDICARE, MEDICAID, SELFPAY ==
--- NOTE | ~2024-02-21 | NM_ITS ---
Lexiscan Myocardial perfusion study Indication: Coronary artery disease Technique: The patient was brought in for a Lexiscan perfusion study on 02/21/2024 and was injected 0.4 mg of Lexiscan intravenously. Within a minute of this injection 40 mCi of sestamibi was given intravenously. Images were obtained using the SPECT gamma camera interlaced with the gating device. Images were obtained in supine position. Resting perfusion study was performed on 02/26/2024. Patient was administered 40 mCi of sestamibi intravenously at rest. Images were then obtained in supine position. Total DLP 75 mGy-cm. Images were processed with the software and compared side to side in short axis, horizontal long axis and vertical long axis views. Findings: Raw aquisition reviewed. Right arm by patient's side. The stress perfusion study showed decreased tracer uptake along the inferior wall. With CT attenuation correction, there is improved uptake suggestive of diaphragmatic attenuation artifact. The gated study shows diminished LV systolic function with calculated LVEF of 48%. Visually, appears higher. LV cavity is normal in size. The gated study shows normal wall thickening and contraction of segments. Resting study shows decreased tracer uptake along the inferior wall. There is improved uptake with CT attenuation correction suggestive of diaphragmatic attenuation artifact. Gating at rest reveals normal wall motion with ejection fraction at 61%. The findings are consistent with fixed appearing inferior perfusion defect. No clear reversible defects. NM/NM cardiolite stress test Impression: 1. Myocardial perfusion imaging study shows probably normal myocardial perfusion. 2. Gated LVEF is 48% during stress but visually appears higher. 61% during rest. Correlate with echocardiogram. 3. Transient ischemic dilatation not present. EKG component of the test reported separately. Electronically signed by: Sebastian Iglesias MD 02/27/2024 11:02 AM SHARMILA
--- OUTSIDE RECORDS SUMMARY | 2024-02-21 07:43 | XMS_ITS | Patient Health Record ---
Author Organization [facility] Address [address] [place] [address] Care Team Providers Care Reordering Clerk Name Role Phone Henok iSerra Primary Care Provider Esteban Zuniga Jr Unavailable [phone] 1 ALLERGIES Allergen (clinical drug ingredient) Drug/Non Drug Allergy documented on EMR Reaction Allergy Type Onset Date Status lisinopril lisinopril (uncoded) Unknown Allergy Active REASON FOR REFERRAL No Information MEDICATIONS Medication SIG (Take, Route, Frequency, Duration) Notes Start Date End Date Status Simvastatin 40mg Act james Ventolin HFA Active glyBURIDE 5mg Active Losartan Potassium A ctive Gemfibrozil 600mg Ac tive Atorvastatin Calcium Active Basaglar KwikPen Act ajmes MiraLax (colon prep) 8.3 ounce ((238) grams mixed with Gatorade or Crystal Light orally begin at 5:00 p.m. the day before the procedure for 1 day 01/11/2020 Active metFORMIN HCl 1,000mg Active glipiZIDE Active Gabapentin Active Tamsulosin HCl Activ e Breo Ellipta Active Lantus Active Aspir-81 81mg Active Metoprolol Succinate 50mg Active Naproxen Active IMMUNIZATIONS Vaccine Route Administration Date Status Comme nts Influenza Unknown 12/23/2019 Administered SOCIAL HISTORY Sex Assigned At : Social History Observation Description Sex Assigned At Unknown Alcohol Screen Question Answer Notes Did you have a drink contain ing alcohol in the past year? Yes How often did you have a dri nk containing alcohol in the past year? 2 to 4 times a month (2 points) How many drinks did you have on a typical day when you were drinking in the past year? 3 or 4 drinks (1 point) Points 3 Interpretation Negative PROBLEMS Problem Type ICD Code Onset Dates Problem Status W/U Status Risk SNOMED Code Notes Problem Change in bowel habits (R19.4) Active confirmed Change in bowel habit (18892341) PLAN OF TREATMENT Future Test Test Name Order Date COLONOSCOPY 01/11/2020 Insurance Providers Payer Name Payer Address Payer Phone Subscriber Number Group Number Insured Name Patient Relationship to Insured Coverage Start Date Coverage End Date MEDICARE OF [place] [address] [place] [id number] FITZ NORRIS Self - patient is the insured MEDICAID [email or web address] [address] [place] [address] [id number] FITZ NORRIS Self - patient is the insured MEDICAL (GENERAL) HISTORY Medical History History ICD Code hypertension elevated cholesterol coronary disease with history of [place] and stent placement diabetes mellitus COPD Surgical History Surgery Date(Month/Year) cardiac catheterization with stent place ment right carotid endarterectomy
--- OUTSIDE RECORDS SUMMARY | 2024-02-21 07:43 | XMS_ITS | Continuity of Care Document ---
Author Organization [facility] Address [address] [place] [address]- Care Team Providers Care Roll On Man Name Role Phone Brandy Lindsay Primary Care Physician [phone] Encounter [facility] ACCT R [id number] Date(s): 01/29/24 - 02/05/24 [facility] [address] [place] [address]- Attending Physician: Melissa DONALDSON, Elsa Kaplan Admitting Physician: Melissa DONALDSON, Elsa Kaplan Referring Physician: Brandy Lindsay Encounter Type: Office Visit Allergies, Adverse Reactions, Alerts Substance Criticality Severity Reaction Reaction Severity Status lisinopril Active Medications ACCU-CHEK FASTCLIX LANCET DRUM ACCU-CHEK FASTCLIX LANCET DRUM, USE 3 TIMES A DAY FOR SUGAR CHECKS Start Date: 07/02/23 Status: Ordered Repeat number: 1 Albuterol (Eqv-ProAir HFA) 90 mcg/inh inhalation aerosol INHALE 2 PUFFS INTO THE LUNGS EVERY 4 TO 6 HOURS NEEDED Start Date: 09/20/20 Status: Ordered Repeat number: 1 Albuterol (Eqv-Proventil HFA) 90 mcg/inh inhalation aerosol 0 Refills, Maintenance, 07/02/23 10:13:00 AM EDT, Partial fill upon patient request if the prescription is for a schedule II opioid drug. Start Date: 07/02/23 Status: Ordered Repeat number: 1 Aspir-Low 81 mg oral enteric coated tablet 1 tablet = 81 mg, By Mouth, Daily, # 30 tablet, 11 Refills, Maintenance, 09/02/13 5:14:43 AM EDT, ECTablet, [id number] Start Date: 09/02/13 Status: Ordered Quantity: 30.0 Unit: tablet Repeat number: 12 atorvastatin 80 mg oral tablet 1 tablet = 80 mg, By Mouth, Daily at bedtime, # 30 tablet, 11 Refills, Maintenance, 09/02/13 5:16:10AM EDT, Tablet, [facility] #[id number] Start Date: 09/02/13 Status: Ordered Quantity: 30.0 Unit: tablet Repeat number: 12 atorvastatin 80 mg oral tablet TAKE 1 TABLET BY MOUTH EVERY DAY Start Date: 07/02/23 Status: Ordered Repeat number: 1 Augmentin 875 mg-125 mg oral tablet 0 Refills, Maintenance, 07/02/23 10:13:00 AM EDT, Partial fill upon patient request if the prescription is for a schedule II opioid drug. Start Date: 07/02/23 Status: Ordered Repeat number: 1 Breo Ellipta 1 puff, Inhalation, Daily, 0 Refills, Maintenance, 05/11/19 9:54:00 AM EST Start Date: 05/11/19 Status: Ordered Repeat number: 1 Breo Ellipta 100 mcg-25 mcg/inh inhalation powder 1 puffs, Inhalation, Daily, # 30 each, 0 Refills, Maintenance, 07/02/23 10:13:00 AM EDT, Powder, Partial fill upon patient request if the prescription is for a schedule II opioid drug. Start Date: 07/02/23 Status: Ordered Quantity: 30.0 Unit: each Repeat number: 1 clotrimazole 1% topical cream 45 Gm, 0 Refill(s), APPLY TO SKIN AND TOENAILS DAILY FOR 12 WEEKS, 0 Refills, 09/13/23 1:32:00 PM EDT, Partial fill upon patient request if the prescription is for a schedule II opioid drug. Start Date: 09/13/23 Status: Ordered Repeat number: 1 Compression Stockings See Instructions, # 1 pair, Refills 4, Tot. Refills 4, Maintenance, surgical, thigh-high length 20-30 mm Hg with silicone band Dx: varicose veins of left leg with pain, swelling, 06/17/17 2:25:27 PM EDT, Compound Start Date: 06/17/17 Status: Ordered Quantity: 1.0 Unit: pair Repeat number: 5 dexamethasone 2 mg oral tablet TAKE 5 TABLETS BY MOUTH AT BEDTIME FOR 5 DAYS Start Date: 07/02/23 Status: Ordered Repeat number: 1 ezetimibe 10 mg oral tablet 1 tablet = 10 mg, By Mouth, Daily, # 30 tablet, 0 Refills, Maintenance, 06/21/23 11:31:00 AM EDT, Tablet, Partial fill upon patient request if the prescription is for a schedule II opioid drug. Start Date: 06/21/23 Status: Ordered Quantity: 30.0 Unit: tablet Repeat number: 1 ezetimibe 10 mg oral tablet 1 tablet = 10 mg, By Mouth, Daily, # 90 tablet, 0 Refills, Maintenance, 07/02/23 10:13:00 AM EDT, Tablet, Partial fill upon patient request if the prescription is for a schedule II opioid drug. Start Date: 07/02/23 Status: Ordered Quantity: 90.0 Unit: tablet Repeat number: 1 FASTCLIX MIS LANCETS FASTCLIX MIS LANCETS, 0 Refills, Maintenance, 07/02/23 10:13:00 AM EDT Start Date: 07/02/23 Status: Ordered Repeat number: 1 fluticasone-vilanterol 100 mcg-25 mcg/inh inhalation powder 60 each, 0 Refill(s), INHALE 1 PUFF BY MOUTH EVERY DAY, 0 Refills, 09/13/23 1:32:00 PM EDT, Partial fill upon patient request if the prescription is for a schedule II opioid drug. Start Date: 09/13/23 Status: Ordered Repeat number: 1 Freestyle Sumi 3 [place] Freestyle Sumi 3 [place], See Instructions, # 1 each, Refills 0, Tot. Refills 0, Maintenance, Use as directed for Diabetes Control, 09/13/23 2:00:00 PM EDT, Supply, 173, cm, 09/13/23 13:33:00 EDT, Height, 124.5, kg, 06/21/23 12:40:00 EDT, Dry Weight Start Date: 09/13/23 Status: Ordered Quantity: 1.0 Unit: each Repeat number: 1 Indication: Type 2 diabetes mellitus without complications Freestyle Sumi 3 Sensor Freestyle Sumi 3 Sensor, See Instructions, # 6 each, Refills 3, Tot. Refills 3, Maintenance, Use as directed for Diabetes Control. change every 14 days, 90 days supplies, 09/13/23 2:00:00 PM EDT, Supply, 173, cm, 09/13/23 13:33:00 EDT, Height, 124.5, kg, 06/21/23 12:40:00 EDT, Dry Weight Start Date: 09/13/23 Status: Ordered Quantity: 6.0 Unit: each Repeat number: 4 Indication: Type 2 diabetes mellitus without complications gabapentin 300 mg oral capsule 300 mg, 1, capsule, By Mouth, Daily, Refills 0, Maintenance, 09/20/20 5:18:00 AM EDT, Partial fill upon patient request if the prescription is for a schedule II opioid drug. Start Date: 09/20/20 Status: Ordered Repeat number: 1 gabapentin 300 mg oral capsule 300 mg, 1, capsule, By Mouth, 3 times a day, # 270 capsule, Refills 0, Maintenance, 07/02/23 10:13:00 AM EDT, Partial fill upon patient request if the prescription is for a schedule II opioid drug. Start Date: 07/02/23 Status: Ordered Quantity: 270.0 Unit: capsule Repeat number: 1 glipiZIDE 10 mg oral tablet 1 tablet = 10 mg, By Mouth, 2 times a day, 90 days supplies, # 180 tablet, 3 Refills, Maintenance, 09/13/23 1:47:00 PM EDT, [facility]/pharmacy #[id number], Partial fill upon patient request if the prescription is for a schedule II opioid drug., 173, cm, 09/13/23 13:33:00 EDT, Height, 124.5, kg, 06/21/23 12:40:00EDT, Dry Weight Start Date: 09/13/23 Stop Date: 09/07/24 Status: Ordered Quantity: 180.0 Unit: tablet Repeat number: 4 Indication: Type 2 diabetes mellitus without complications hydrochlorothiazide 25 mg oral tablet 12.5 mg, By Mouth, Daily, Refills 0, Maintenance, 06/22/23 10:43:00 AM EDT, Partial fill upon patient request if the prescription is for a schedule II opioid drug. Start Date: 06/22/23 Status: Ordered Repeat number: 1 hydrochlorothiazide-metoprolol 25 mg-50 mg oral tablet TAKE 1/2 TABLET TWICE A DAY BY ORAL ROUTE FOR 30 DAYS. Start Date: 05/03/21 Status: Ordered Repeat number: 1 hydrochlorothiazide-metoprolol 25 mg-50 mg oral tablet 1 tablet, By Mouth, 2 times a day, # 180 tablet, 0 Refills, Maintenance, 07/02/23 10:13:00 AM EDT, Tablet, Partial fill upon patient request if the prescription is for a schedule II opioid drug. Start Date: 07/02/23 Status: Ordered Quantity: 180.0 Unit: tablet Repeat number: 1 Incruse Ellipta 62.5 mcg/inh inhalation powder 1 each, Inhalation, Every 24 hours, doses should be taken at least 24 hours apart, # 30 each, 0 Refills, Maintenance, 02/17/16 9:40:18 AM EST, Powder Start Date: 02/17/16 Status: Ordered Quantity: 30.0 Unit: each Repeat number: 1 Incruse Ellipta 62.5 mcg/inh inhalation powder 1 each, Inhalation, Every 24 hours, doses should be taken at least 24 hours apart, # 30 each, 0 Refills, Maintenance, 07/02/23 10:13:00 AM EDT, Powder, Partial fill upon patient request if the prescription is for a schedule II opioid drug. Start Date: 07/02/23 Status: Ordered Quantity: 30.0 Unit: each Repeat number: 1 iVAPs iVAPs, See Instructions, # 1 each, Refills 0, Tot. Refills 0, Maintenance, iVAPs: EPAP 9 and TVa 5.6 and PS min of 4 and PS max of 20 and TX 16 and height of 68 inches. [facility], 10/31/19 2:28:00 PM EDT, Supply Start Date: 10/31/19 Status: Ordered Quantity: 1.0 Unit: each Repeat number: 1 Lantus Solostar Pen 100 units/mL subcutaneous solution = 40 units, Subcutaneous Injection, Daily at bedtime, 90 days supplies, # 36 mL, 3 Refills, Maintenance, 09/13/23 1:46:00 PM EDT, Injection, [facility]/pharmacy #[id number], Partial fill upon patient request if theprescription is for a schedule II opioid drug., 173, cm, 09/13/23 13:33:00 EDT, Height, 124.5, kg, 06/21/23 12:40:00 EDT, Dry Weight Start Date: 09/13/23 Stop Date: 09/07/24 Status: Ordered Quantity: 36.0 Unit: mL Repeat number: 4 losartan 50 mg oral tablet 1 tablet = 50 mg, By Mouth, Daily, # 30 tablet, 0 Refills, Maintenance, 09/21/20 9:53:00 AM EDT, Tablet, Partial fill upon patient request if the prescription is for a schedule II opioid drug. Start Date: 09/21/20 Status: Ordered Quantity: 30.0 Unit: tablet Repeat number: 1 losartan 50 mg oral tablet 1 tablet = 50 mg, By Mouth, Daily, # 90 tablet, 0 Refills, Maintenance, 07/02/23 10:13:00 AM EDT, Tablet, Partial fill upon patient request if the prescription is for a schedule II opioid drug. Start Date: 07/02/23 Status: Ordered Quantity: 90.0 Unit: tablet Repeat number: 1 meclizine 25 mg oral tablet 1 tablet = 25 mg, By Mouth, 3 times a day, PRN for dizziness, # 30 tablet, 0 Refills, Maintenance, 05/04/21 9:34:00 AM EST, Tablet, [id number], Partial fill upon patient request if the prescription is for a schedule II opioid drug., 175, cm, 05/04/21 7:44:00 EST, Height, 122.1, kg, 05/03/21 1 4:13:00 EST, Dry Weight Start Date: 05/04/21 Status: Ordered Quantity: 30.0 Unit: tablet Repeat number: 1 Metformin = 1,000 mg, By Mouth, 2 times a day, 0 Refills, Maintenance, 02/17/16 9:40:41 AM EST Start Date: 02/17/16 Status: Ordered Repeat number: 1 metFORMIN 1000 mg oral tablet 1 tablet = 1,000 mg, By Mouth, 2 times a day, # 180 tablet, 0 Refills, Maintenance, 07/02/23 10:13:00 AM EDT, Tablet, Partial fill upon patient request if the prescription is for a schedule II opioid drug. Start Date: 07/02/23 Status: Ordered Quantity: 180.0 Unit: tablet Repeat number: 1 metFORMIN 1000 mg oral tablet 1 tablet = 1,000 mg, By Mouth, 2 times a day, 90 day supplies, # 180 tablet, 3 Refills, Maintenance, 09/13/23 1:48:00 PM EDT, [id number], Partial fill upon patient request if the prescription is for a schedule II opioid drug., 173, cm, 09/13/23 13:33:00 EDT, Height, 124.5, kg, 06/21/23 12:40:00 EDT, Dry Weight Start Date: 09/13/23 Stop Date: 09/07/24 Status: Ordered Quantity: 180.0 Unit: tablet Repeat number: 4 Indication: Type 2 diabetes mellitus without complications metoprolol 25 mg oral tablet, extended release 25 mg, By Mouth, Daily, Refills 0, Maintenance, 06/22/23 10:43:00 AM EDT, Partial fill upon patient request if the prescription is for a schedule II opioid drug. Start Date: 06/22/23 Status: Ordered Repeat number: 1 naproxen 500 mg oral tablet 1 tablet = 500 mg, By Mouth, 2 times a day, # 180 tablet, 0 Refills, Maintenance, 09/20/20 5:18:00 AM EDT, Tablet, Partial fill upon patient request if the prescription is for a schedule II opioid drug. Start Date: 09/20/20 Status: Ordered Quantity: 180.0 Unit: tablet Repeat number: 1 naproxen 500 mg oral tablet 1 tablet = 500 mg, By Mouth, 2 times a day, # 180 tablet, 0 Refills, Maintenance, 07/02/23 10:13:00 AM EDT, Tablet, Partial fill upon patient request if the prescription is for a schedule II opioid drug. Start Date: 07/02/23 Status: Ordered Quantity: 180.0 Unit: tablet Repeat number: 1 Ozempic (1 mg dose) 4 mg/3 mL subcutaneous solution See Instructions, INJECT 1 MG SUBCUTANEOUSLY EVERY WEEK, # 3 Unknown, 11 Refills, Maintenance, 11/13/23 8:02:00 AM EDT, [id number], 173, cm, 09/13/23 13:33:00 EDT, Height, 124.5, kg, 06/21/23 12:40:00 EDT, Dry Weight Start Date: 11/13/23 Status: Ordered Quantity: 3.0 Unit: Unknown Repeat number: 1 Physical Therapy Physical Therapy, See Instructions, # 1 each, Refills 0, Tot. Refills 0, Maintenance, Outpatient PT., 09/21/20 9:47:00 AM EDT, Supply Start Date: 09/21/20 Status: Ordered Quantity: 1.0 Unit: each Repeat number: 1 predniSONE 10 mg oral tablet 0 Refills, Maintenance, 07/02/23 10:13:00 AM EDT, Partial fill upon patient request if the prescription is for a schedule II opioid drug. Start Date: 07/02/23 Status: Ordered Repeat number: 1 PT eval and treat for vestibular rehab PT eval and treat for vestibular rehab, See Instructions, # 1 each, Refills 0, Tot. Refills 0, Maintenance, PT eval and treat for vestibular rehab, 05/04/21 9:33:00 AM EST, Compound Start Date: 05/04/21 Status: Ordered Quantity: 1.0 Unit: each Repeat number: 1 tamsulosin 0.4 mg oral capsule 0.8 mg, 2, capsule, By Mouth, Daily, Refills 0, Maintenance, 11/02/21 8:48:00 AM EDT, Partial fill upon patient request if the prescription is for a schedule II opioid drug. Start Date: 11/02/21 Status: Ordered Repeat number: 1 tamsulosin 0.4 mg oral capsule 0.4 mg, 1, capsule, By Mouth, Daily, # 90 capsule, Refills 0, Maintenance, 07/02/23 10:13:00 AM EDT,Partial fill upon patient request if the prescription is for a schedule II opioid drug. Start Date: 07/02/23 Status: Ordered Quantity: 90.0 Unit: capsule Repeat number: 1 Walker Walker, See Instructions, # 1 each, Refills 0, Tot. Refills 0, Maintenance, Rolling walker for ambulation., 09/21/20 9:48:00 AM EDT, Supply Start Date: 09/21/20 Status: Ordered Quantity: 1.0 Unit: each Repeat number: 1 Problem List Condition Confirmation Course Effective Dates Status Health St atus Informant Carotid artery stenosis Confirmed 03/29/16 Active COPD (chronic obstructive pulmonary disease) Confirmed Active CAD (coronary artery disease) Confirmed Active Diabetes, insulin Confirmed Active HLD (hyperlipidemia) Confirmed Active HTN (hypertension) Confirmed Active Sleep related hypoxia Confirmed Active Morbid obesity, actual BMI 41.17 as of 03/20/2016 Confirmed Active Obstructive sleep apnea Confirmed Active Old myocardial infarction, stents placed X2 Confirmed Active S/P hernia repair Confirmed Active Severe obesity Confirmed Active Current tobacco use Confirmed Active Treatment-emergent central sleep apnea Confirmed Active Vital Signs Most recent to oldest [Reference Range]: 1 Height 173 cm (11/20/24 10:00 AM) Weight 127.5 kg (01/29/24 10:00 AM) Oxygen Saturation [94-100 %] 93 % *L* (01/29/24 10:00 AM) Pulse Rate [55-90 bpm] 66 bpm (01/29/24 10:00 AM) Body Mass Index [18.5-24.99 kg/m2] 42.6 kg/m2 *>HHI* (01/29/24 10:00 AM) Blood Pressure [90-138/55-84 mm Hg] 110/ 60mm Hg (01/29/24 10:00 AM) Mode of Delivery (Oxygen) Room air (01/29/24 10:00 AM) Blood pressure sites Arm, right (01/29/24 10:00 AM) Weight Obtained Via Patient/family state d (01/29/24 10:00 AM) Social History Social History Type Response Smoking Status Former smoker entered on: 02/17/16 Sex Sex Representation Male (finding) Note * Elsa Mcintosh: PERFORM Event Display: Patient Education/Instruction Authored Date: Ambulatory Adult Visit Summary [facility] [address] [facility] [address] [place] [address] Name: FITZ NORRIS : 1955?? Visit: 01/29/2024 09:42?? Ambulatory Visit Instructions ?? Your Care Team Primary Care Provider Brandy Lindsay? This Visit Provider Elsa Torres NP Your Diagnosis PAD (peripheral artery disease) Carotid artery stenosis Vitals Signs Pulse Rate: 66 bpm Height: 173 cm Systolic Blood Pressure: 110 mm Hg Weight: 127.5 kg Diastolic Blood Pressure: 60 mm Hg Body Mass Index:??42.6 kg/m2??Critical Oxygen Saturation:??93 %??Low Body surface area: 2.48 Medications The list below reflects the information in our records and provided by you today along with any changes made during this visit. Please continue your medications until treatment is completed or stopped by your provider. If this is different from the information you have or there are other questions,please contact the prescribing provider. What How Much When Why Instructions Unchanged Albuterol (Albuterol (Eqv-ProAir HFA) 90 mcg/ inh inhalation aerosol) INHALE 2 PUFFS INTO THE LUNGS EVERY 4 TO 6 HOURS NEEDED ?? Unchanged Albuterol (Albuterol (Eqv-Proventil HFA) 90 mcg/ inh inhalation aerosol) Unchanged Amoxicillin-Clavulanate (Augmentin 875 mg-125 mg oral tablet) Unchanged Aspirin (Aspir-Low 81 mg oral enteric coated tablet) 1 tab(s) Oral Daily Unchanged Atorvastatin (atorvastatin 80 mg oral tablet) TAKE 1 TABLET BY MOUTH EVERY DAY ?? Unchanged Atorvastatin (atorvastatin 80 mg oral tablet) 1 tab(s) Oral Daily at Bedtime Unchanged Clotrimazole Topical (clotrimazole 1% topical cream) 45 Gm, 0 Refill(s), APPLY TO SKIN AND TOENAILS DAILY FOR 12 WEEKS ?? Unchanged Dexamethasone (dexamethasone 2 mg oral tablet) TAKE 5 TABLETS BY MOUTH AT BEDTIME FOR 5 DAYS ?? Unchanged Durable Medical Equipment (Compression Stockings) See instructions surgical, thigh-high length 20-30 mm Hg with silicone band ?? Dx: varicose veins of left leg with pain, swelling ?? Unchanged Durable Medical Equipment (Freestyle Sumi 3 [place]) See instructions Diabetes, insulin Use as directed for Diabetes Control ?? Unchanged Durable Medical Equipment (Freestyle Sumi 3 Sensor) See instructions Diabetes, insulin Use as directed for Diabetes Control. change every 14 days, 90 days supplies ?? Unchanged Durable Medical Equipment (iVAPs) See instructions iVAPs: EPAP 9 and TVa 5.6 and PS min of 4 and PS max of 20 and TX 16 and height of 68 inches. [facility] ?? Unchanged Durable Medical Equipment (Physical Therapy) See instructions Outpatient PT. ?? Unchanged Durable Medical Equipment (Walker) See instructions Rolling walker for ambulation. ?? Unchanged Ezetimibe (ezetimibe 10 mg oral tablet) 1 tab(s) Oral Daily Unchanged Ezetimibe (ezetimibe 10 mg oral tablet) 1 tab(s) Oral Daily Unchanged fluticasone-vilanterol (Breo Ellipta 100 mcg-25 mcg/ inh inhalation powder) 1 puff(s) Inhalation Daily Unchanged fluticasone-vilanterol (Breo Ellipta) 1 puff Inhalation Daily Unchanged fluticasone-vilanterol (fluticasone-vilanterol 100 mcg-25 mcg/ inh inhalation powder) 60 each, 0 Refill(s), INHALE 1 PUFF BY MOUTH EVERY DAY ?? Unchanged Gabapentin (gabapentin 300 mg oral capsule) 1 capsule Oral Daily Unchanged Gabapentin (gabapentin 300 mg oral capsule) 1 capsule Oral 3 times a day Unchanged GlipiZIDE (glipiZIDE 10 mg oral tablet) 1 tab(s) Oral Twice a day Diabetes, insulin Duration: 90 Days 90 days supplies ?? Unchanged Hydrochlorothiazide (hydrochlorothiazide 25 mg oral tablet) 12.5 Milligram Oral Daily Unchanged Hydrochlorothiazide-Metoprolol (hydrochlorothiazide-metoprolol 25 mg- 50 mg oral tablet) 1 tab(s) Oral Twice a day Unchanged Hydrochlorothiazide-Metoprolol (hydrochlorothiazide-metoprolol 25 mg- 50 mg oral tablet) TAKE 1/ 2 TABLET TWICE A DAY BY ORAL ROUTE FOR 30 DAYS. ?? Unchanged Insulin Glargine (Lantus Solostar Pen 100 units/ mL subcutaneous solution) 40 unit(s) Subcutaneous Injection Daily at Bedtime Duration: 90 Days 90 days supplies ?? Unchanged Losartan (losartan 50 mg oral tablet) 1 tab(s) Oral Daily Unchanged Losartan (losartan 50 mg oral tablet) 1 tab(s) Oral Daily Unchanged Meclizine (meclizine 25 mg oral tablet) 1 tab(s) Oral 3 times a day as needed for for dizziness Unchanged Metformin 1,000 Milligram Oral Twice a day Unchanged Metformin (metFORMIN 1000 mg oral tablet) 1 tab(s) Oral Twice a day Diabetes, insulin Duration: 90 Days 90 day supplies ?? Unchanged Metformin (metFORMIN 1000 mg oral tablet) 1 tab(s) Oral Twice a day Unchanged Metoprolol (metoprolol 25 mg oral tablet, extended release) 25 Milligram Oral Daily Unchanged Miscellaneous Rx (ACCU-CHEK FASTCLIX LANCET DRUM) USE 3 TIMES A DAY FOR SUGAR CHECKS ?? Unchanged Miscellaneous Rx (FASTCLIX MIS LANCETS) Unchanged Miscellaneous Rx (PT eval and treat for vestibular rehab) See instructions PT eval and treat for vestibular rehab ?? Unchanged Naproxen (naproxen 500 mg oral tablet) 1 tab(s) Oral Twice a day Unchanged Naproxen (naproxen 500 mg oral tablet) 1 tab(s) Oral Twice a day Unchanged PredniSONE (predniSONE 10 mg oral tablet) Unchanged semaglutide (Ozempic (1 mg dose) 4 mg/ 3 mL subcutaneous solution) See instructions INJECT 1 MG SUBCUTANEOUSLY EVERY WEEK ?? Unchanged Tamsulosin (tamsulosin 0.4 mg oral capsule) 1 capsule Oral Daily Unchanged Tamsulosin (tamsulosin 0.4 mg oral capsule) 2 capsule Oral Daily Unchanged umeclidinium (Incruse Ellipta 62.5 mcg/ inh inhalation powder) 1 Each Inhalation Every 24 hours doses should be taken at least 24 hours apart ?? Unchanged umeclidinium (Incruse Ellipta 62.5 mcg/ inh inhalation powder) 1 Each Inhalation Every 24 hours doses should be taken at least 24 hours apart ?? Medications and Immunizations Administered Medications Given During Visit No medications given during this visit.?? Allergies (NKA means No Known Allergies) lisinopril Common Emergency Awareness Tips IS IT A STROKE? Act FAST and Check for these signs: FACE Does the face look uneven? ARM Does one arm drift down? SPEECH Does their speech sound strange? TIME Call at any sign of stroke ?? Heart Attack Signs Chest discomfort: Most heart attacks involve discomfort in the center of the chest and lasts more than a few minutes, or goes away and comes back. It can feel like uncomfortable pressure, squeezing, fullness or pain. Discomfort in upper body: Symptoms can include pain or discomfort in one or both arms, back, neck, jaw or stomach. Shortness of breath: With or without discomfort. Other signs: Breaking out in a cold sweat, nausea, or lightheaded. Remember, MINUTES DO MATTER. If you experience any of these heart attack warning signs, call to get immediate medical attention! ?? Smoking can increase your chances of developing chronic health problems and can cause harmful effects to other family members in your house. If you smoke, you are strongly encouraged to quit. Please call [facility] Link at [phone] or [phone] ([phone]) or log in to [email or web address] for referrals to smoking cessation programs. ?? The National Suicide Prevention Hotline is available 01/10 if you or someone you know needs to find a reason to keep living. By calling 0-963-536-Cuiker (0383) you'll be connected to a skilled, trained counselor at a crisis center in your area. [facility] You can view and manage your care through the patient portal or by using a health care gilda of your choosing. [employer] is a website that allows you to securely view your medical information including your hospital discharge summary, office visit summaries, medications and follow-up visits. You can also request appointments, renew medications, and request access to your medical information using a health care gilda of your choosing, or just ask a question. You can enroll at [email or web address] or register during your next office visit. [facility], in keeping with [facility] guidance, no longer requires face masks for staff, patientsor visitors in most situations. Similiar to time spent indoors at other locations, there is the chance that you were exposed to repiratory viruses during your time with us (such as flu or COVID-19). If you develop symptoms concerning for a viral respiratory infection, please seek testing (and treatment if indicated) from your medical provider or home test kit. ?? Disclaimer: The information provided is of a general nature and is intended to be used in conjunction with the recommendations and advice of your health care practitioner. Every effort has been made to ensure that the information provided is accurate and complete at the time it is provided to you however, as your needs change, or, as new information becomes available, different or additional instructions may be required. ?? If you have questions, please consult with your primary care provider or pharmacist, as appropriate. This information is not intended to serve as substitution for assessment and evaluation by a qualified health care provider. If you do not have a primary care provider, you may find a [facility] provider by calling [facility] Hey, Neighbor! Link at [phone]. Patient Care team information Care Team Personnel Name: Farida Quiros RN Position: [facility] RN Member Role: Primary Care Nurse Name: Luciano Fernandez RN Position: [facility] RN Member Role: Primary Care Nurse Name: Beatrice Tello NP Position: [facility] PCO Associate Professional Member Role: Primary Care Nurse Address: [address] [place] [address]- [place] [employer]: Name: Brandy Lindsay Position: [facility] Outreach Member Role: PCP Address: [address] [place] [address] [address] [facility] [place] [address]- [place] [employer]: Name: Yi Ponce LPN Position: [facility] RN Member Role: Primary Care Nurse Care Team Related Persons Name: EMILY FORTUNE Insurance Providers Guarantor name: DERIAN Health Plan Information #: 1 Payer: [employer] P[employer] Member Number: [id number] Policy Number: NA Group Number: [facility] Health Plan Information #: 2 Payer: [employer] P[employer] Member Number: [id number] Policy Number: NA Group Number: [id number]
--- NOTE | 2024-02-21 07:44 | CA_ITS ---
Acquisition Time: 2024-02-21 08:09:30 Total Exercise Time: 00:02:00 Test Indications: CAD, SOB Medications: SEE H Protocol: LEXISCAN Max HR: 096 BPM 62% of Pred: 153 BPM Max BP: 150/080 mmHG Max Work Load: 1.0 METS Pharmacologic Stress Test with Lexiscan, while pt kicks his leg in the chair, with reports of leg weakness and SOB, no chest discomfort, with isolated PACs, with normotensive response to injection. Nondiagnostic EKG for ischemia. In recovery, pt treated with IVP Aminophylline 75mg to reverse Lexiscan, after which, pt feeling back to baseline. Nuclear images pending. Test reviewed with Dr. Gamez. Referred By: Manny Gamez Overread By: URIEL BULLARD
--- OUTSIDE RECORDS SUMMARY | 2024-02-21 07:44 | XMS_ITS | Data Portability ---
Author Organization [facility] Home Service Address [address] [place] [address] Assessment Encounter Date Assessment Date Assessment LastModified by Organization Details LastModified Time 09/17/2022 09/17/2022 The patient denies little pleasure in activities they find enjoyable, feeling depressed, difficulties sleeping, feeling tired or having little energy, change in appetite, feeling guilty, overwhelmed or unmotivated. The patient denies suicidal ideation, thoughts of hurting themselves or others. Their mood is appropriate, they show good judgement and clear understanding of the conversation. They are orientated to time, place and person. They are not expressing any concerning thoughts or actions that would need further investigation and treatment for mental health. The patient denies recent falls or recurrent falls. Denies instability, weakness, abnormal gait, or difficulties with movement. The patient wears correct, supportive shoes and is not otherwise severely visually impaired. The patient is full weight bearing and if using the assistance of a cane or walker feels supported and stable with the use of such devices. All medical conditions have been taken into account that may pose a risk for the patient for falls. Home vibha, carpets and/or rugs do not pose a challenge for the patient. The patient has been educated about the use of vitamin D supplementation for bone health and prevention of hypotensive episodes that may increase risk for fall. All question and concerns were answered to the patient's satisfaction. [email or web address] Not available 09/17/2022 10:46:14 07/01/2023 07/01/2023 Patient agreed and verbally consents to this audio and video Telehealth appt via a secure platform [email or web address] Not available 07/01/2023 15:17:00 Plan of Treatment Reminders Order Date Submit Date Provider Last Modified By Organization Details Last Modified Time Details Appointments None recorded. Lab HbA1c (hemoglobi n A1c), blood 2022 023 [facility], [address] [place] [address], [address], 3 10:55:15 CBC w/ auto diff 2022 023 [facility], [address] [place] [address], [address], 10:55:15 lipid panel, blood 2022 023 [facility], [address] [place] [address], [address], 10:55:15 CMP, serum or plasma 2022 023 [facility], [address] [place] [address], [address], 3 10:55:15 CMP, serum or plasma 2022 023 [facility], [address] [place] [address], [address], 3 11:24:04 lipid panel, blood 2022 023 [facility], [address] [place] [address], [address], 10:27:58 hemoglobin A1c, QN, blood 2022 023 [facility], [address] [place] [address], [address], 3 11:24:04 microalbum in, urine 2022 023 [facility], [address] [place] [address], [address], 3 10:27:58 CBC w/ auto diff 2022 023 [facility], [address] [place] [address], [address], 3 10:27:58 CMP, serum or plasma 2022 024 [facility], [address] [place] [address], [address], 3 11:24:04 hemoglobin A1c, QN, blood 2022 024 [facility], [address] [place] [address], [address], 3 11:24:04 CMP, serum or plasma 2023 024 [facility], [address] [place] [address], [address], 4 10:30:12 lipid panel, blood 2023 024 [facility], [address] [place] [address], [address], 4 10:30:12 hemoglobin A1c, QN, blood 2023 024 [facility], [address] [place] [address], [address], 4 10:30:12 CBC w/ auto diff 2023 024 [facility], [address] [place] [address], [address], 4 11:42:26 CBC w/ auto diff 2023 024 [facility], [address] [place] [address], [address], 4 11:42:26 CMP, serum or plasma 2023 024 [facility], [address] [facility], [place], [address], 4 10:54:08 lipid panel, blood 2023 024 [facility], [address] [facility], [place], [address], 4 10:54:08 hemoglobin A1c, QN, blood 2023 024 [facility], [address] [facility], [place], [address], 4 10:54:08 CBC w/ auto diff 2023 024 [facility], [address] [place] [address], [address], 4 10:54:08 Referral None recorded. Procedures None recorded. Surgeries None recorded. Imaging None recorded. Medication Orders tramadol 50 mg tablet 2022 023 [email or web address] [facility]/Pharmacy #[id number], [address] [place], [address], 3 10:44:04 Lantus Solostar U-100 Insulin 100 unit/mL (3 mL) subcutaneo us pen 2023 024 [facility]/Pharmacy #[id number], [address] [place], [address], 4 10:23:29 albuterol sulfate HFA 90 mcg/actuat ion aerosol inhaler 2023 024 [facility]/Pharmacy #[id number], [address] [place], [address], 4 10:26:37 prednisone 10 mg tablet 2023 024 [facility]/Pharmacy #[id number], [address] [place], [address], 4 15:17:04 amoxicilli n 875 mg-potassi um clavulanat e 125 mg tablet 2023 024 [facility]/Pharmacy #[id number], [address] [place], [address], 4 10:45:15 Patient TargetsNo targets recorded. Patient InstructionsNo instructions recorded. Reason for Referral None Reported. Results Created Date Observation Date Name Description Value Unit Range Abnormal Flag Note LastModifiedBy Organization Detail LastModifiedTime 06/23/19 24 06/22/2023 , [facility] ardio gram No observ ation record ed. [email or web address] Not Available 2023 08:49:04 Result Notes None recorded. Problems Name Problem SNOMED Code Status Onset Date Resolution Date Notes Provider Name and Address Organization Details Recorded Time Diabetes mellitus 15981851 Active 2017 Not Available [facility] 3 10:06:37 Obesity 208754171 Active 2017 Not Available [facility] 3 10:06:37 Chronic obstructiv e pulmonary disease 39640295 Active 2017 Not Available [facility] 3 10:06:37 Vertigo 518257585 Active 2017 Not Available [facility] 3 10:06:37 Essential hypertensi on 53203581 Active 2017 Not Available [facility] 3 10:06:37 Hyperchole sterolemia 94211777 Active 2017 Not Available [facility] 3 10:06:37 Vascular disorder 91301864 Active 2017 Not Available [facility] 3 10:06:37 Body mass index 30+ - obesity 698907057 Active 2018 Not Available [facility] 3 10:06:37 Type 2 diabetes mellitus 38654667 Active 2020 Not Available [facility] 3 10:06:37 Tobacco dependence syndrome 21407074 Active 2021 Not Available [facility] 3 10:06:37 Diabetic peripheral neuropathy 335883835 Active 2022 Not Available [facility] 3 10:06:37 Foot callus 190839021 Active 2022 Not Available [facility] 3 10:06:37 Low back pain 496359078 Active 2022 LISA OLIVEIRA [address], [place], [address] , [facility] 3 10:22:49 Foot ulcer due to type 2 diabetes mellitus 8690667633600 Active 2022 LISA OLIVEIRA [address], [place], [address] , [facility] 3 15:27:14 Skin ulcer 98395968 Active 2023 LISA OLIVEIRA [address],[place], [address] , [facility] 4 10:24:36 Uvulitis 317219721 Active 2023 LISA OLIVEIRA [address], [place], [address] , [facility] 4 15:14:36 Problem Notes None recorded. Procedures Surgical History Date Name Laterality Status Provider Name and Address Organization Details Recorded Time 2 Colonoscopy completed Michelle Cook [facility] 04/07/2018 08:21:02 Imaging Results Imaging Date Name Status LastModified by Organization Details LastModified Time 06/22/2023 , echocardiogram completed [email or web address] Inform ation not available 06/25/2023 08:49:04 Procedure Notes None recorded. Medical Equipment None Reported. Allergies No known drug allergies Medications Name Sig Start Date Stop Date Status Note LastModified by Organization Details LastModified Time losartan 50 mg tablet TAKE 1 TABLET BY MOUTH EVERY DAY active Not Available Not Available No t Available cyclobenzap rine 10 mg tablet PLEASE SEE ATTACHED FOR DETAILED DIRECTION S active Not Available Not Available No t Available atorvastati n 80 mg tablet TAKE 1 TABLET BY MOUTH EVERY DAY active Not Available Not Available No t Available Colace 100 mg capsule Take 1 capsule 3 times a day by oral route for 30 days. 05/16 completed Not Available Not Available Not Available prednisone 10 mg tablet PLEASE SEE ATTACHED FOR DETAILED DIRECTION S active Not Available Not Available No t Available azithromyci n 250 mg tablet TAKE 2 TABLETS BY MOUTH TODAY, THEN TAKE 1 TABLET DAILY FOR 4 DAYS 05/16 completed Not Available Not Available Not Available glipizide ER 10 mg tablet, extended release 24 hr Take 1 tablet twice a day by oral route for 90 days. 09/25 completed Not Available Not Available Not Available glipizide 10 mg tablet TAKE 1 TABLET BY MOUTH TWICE A DAY active Not Available Not Available No t Available Lantus U-100 Insulin 100 unit/mL subcutaneou s solution 04/07 completed Not Available Not Available Not Available meclizine 12.5 mg tablet TAKE 1 TABLET BY MOUTH THREE TIMES A DAY NEEDED FOR 14 DAYS active Not Available Not Available No t Available metoprolol tartrate 50 mg-hydrochl orothiazide 25 mg tablet TAKE 1/2 TABLET BY MOUTH TWICE A DAY active Not Available Not Available No t Available tramadol 50 mg tablet TAKE 1 TABLET BY MOUTH EVERY 6 HOURS NEEDED FOR 14 DAYS active Not Available Not Available No t Available acetaminoph en ER 650 mg tablet,exte nded release TAKE 2 CAPSULES BY MOUTH TWICE A DAY FOR 5 DAYS active Not Available Not Available No t Available tamsulosin 0.4 mg capsule TAKE 2 CAPSULES BY MOUTH EVERY DAY 2023 active Not Available Not Available Not Avai lable meclizine 25 mg tablet TAKE 1 TABLET BY MOUTH THREE TIMES A DAY NEEDED FOR DIZZINESS 01/08 completed Not Available Not Available Not Available baclofen 10 mg tablet TAKE 1 TABLET BY MOUTH 4 TIMES A DAY FOR 14 DAYS 05/15 completed Not Available Not Available Not Available dexamethaso ne 2 mg tablet 10/27 completed Not Available Not Available Not Available cephalexin 500 mg capsule Take 1 capsule every 8 hours by oral route. 08/25 completed Not Available Not Available Not Available metformin 1,000 mg tablet TAKE 1 TABLET BY MOUTH TWICE A DAY active Not Available Not Available No t Available gabapentin 300 mg capsule TAKE 1 CAPSULE BY MOUTH TWICE A DAY 2023 active Not Available Not Available Not Avai lable hydrocortis one 2.5 % topical cream APPLY SPARINGLY TO AFFECTED AREA 2 TO 4 TIMES A DAY 09/26 completed Not Available Not Available Not Available codeine 10 mg-guaifene sin 100 mg/5 mL oral liquid TAKE 10 ML EVERY 4 HOURS BY ORAL ROUTE. 05/16 completed Not Available Not Available Not Available albuterol sulfate HFA 90 mcg/actuati on aerosol inhaler INHALE 2 PUFFS BY MOUTH ONCE PER DAY NEEDED FOR INCREASED SHORTNESS OF BREATH active Not Available Not Available No t Available clotrimazol e 1 % topical cream APPLY TO SKIN AND TOENAILS DAILY FOR 12 WEEKS active Not Available Not Available No t Available finasteride 5 mg tablet Take 1 tablet every day by oral route. 08/25 completed Not Available Not Available Not Available glipizide 5 mg tablet TAKE 2 TABLETS BY MOUTH TWICE A DAY active Not Available Not Available No t Available naproxen 500 mg tablet TAKE 1 TABLET BY MOUTH TWICE A DAY FOR 2 WEEKS 2023 active Not Available Not Available Not Avai lable amoxicillin 875 mg-potassiu m clavulanate 125 mg tablet TAKE 1 TABLET BY MOUTH EVERY 12 HOURS FOR 10 DAYS 10/27 completed Not Available Not Available Not Available azithromyci n 500 mg tablet 11/04 completed Not Available Not Available Not Available Asprin Ec Low Dose 81 mg tablet,ricardo yed release Take 1 tablet every day by oral route. active Not Available Not Available No t Available ezetimibe 10 mg tablet TAKE 1 TABLET BY MOUTH DAILY active Not Available Not Available No t Available BD Insulin Syringe Ultra-Fine 1 mL 30 gauge x 1/2 04/07 completed Not Available Not Available Not Available Januvia 100 mg tablet TAKE 1 TABLET BY MOUTH EVERY DAY active Not Available Not Available No t Available Lantus Solostar U-100 Insulin 100 unit/mL (3 mL) subcutaneou s pen INJECT 40 UNITS SUBCUTANE OUSLY EVERY DAY AT BEDTIME active Not Available Not Available No t Available diclofenac 1 % topical gel APPLY 2 GRAMS TOPICALLY 4 TIMES PER DAY FOR 10 DAYS active Not Available Not Available No t Available Breo Ellipta 100 mcg-25 mcg/dose powder for inhalation INHALE 1 PUFF BY MOUTH EVERY DAY 2023 active Not Available Not Available Not Avai lable Incruse Ellipta 62.5 mcg/actuati on powder for inhalation INHALE 1 PUFF BY MOUTH EVERY DAY 10/27 completed Not Available Not Available Not Available Proctosol HC 2.5 % topical cream perineal applicator APPLY SPARINGLY TO AFFECTED AREA 2 TO 4 TIMES A DAY 09/26 completed Not Available Not Available Not Available Accu-Chek Guide test strips Take 1 strip 3 times a day by miscell. route as directed for 90 days. 2023 active Not Available Not Available Not Avai lable Accu-Chek Fastclix Lancet Drum USE 3 TIMES A DAY FOR SUGAR CHECKS active Not Available Not Available No t Available FreeStyle Sumi 14 Day Bayard CHECK GLUCOSE LEVEL WITH READER 3 TIMES PER DAY 07/05 completed Not Available Not Available Not Available FreeStyle Sumi 14 Day Sensor kit use as directed 2020 active Not Available Not Available Not Avai lable BD Marian 2nd Gen Pen Needle 32 gauge x 5/32 USE ONCE DAILY DIRECTED active Not Available Not Available No t Available Flucelvax Quad (PF) 60 mcg (15 mcg x 4)/0.5 mL IM syringe PHARMACY ADMINISTE RED 02/08 completed Not Available Not Available Not Available Ozempic 1 mg/dose (4 mg/3 mL) subcutaneou s pen injector INJECT 1 MG SUBCUTANE OUSLY EVERY WEEK active Not Available Not Available No t Available FreeStyle Sumi 3 Sensor device USE DIRECTED FOR DIABETES CONTROL. CHANGE EVERY 14 DAYS, 90 DAYS SUPPLIES active Not Available Not Available No t Available Ozempic 0.25 mg or 0.5 mg (2 mg/3 mL) subcutaneou s pen injector INJECT 0.25 MG SUBCUTANE OUS INJECTION EVERY WEEK ROTATE INJECTION SITES active Not Available Not Available No t Available Vitals Date Recorded Body height Body mass index (BMI) Body weight Heart rate Oxygen saturation Oxygen saturation in Arterial blood by Pulse oximetry Systolic blood pressure Diastolic blood pressure Provider Name and Address Organization Details Last Updated DateTime 3 166.37 cm 44.4 kg/m2 227098. 53 g 54 /min 96 % 96 % 142 mm[Hg] 76 mm[Hg] [facility] 3 10:29:18 Date Recorded Body height Body mass index (BMI) Body weight Heart rate Oxygen saturation Oxygen saturation in Arterial blood by Pulse oximetry Systolic blood pressure Diastolic blood pressure Provider Name and Address Organization Details Last Updated DateTime 3 166.37 cm 44.9 kg/m2 887294. 31 g 56 /min 96 % 96 % 142 mm[Hg] 68 mm[Hg] Bridget Gastelum [facility] 3 10:15:59 Date Recorded Body height Body mass index (BMI) Body weight Heart rate Oxygen saturation Oxygen saturation in Arterial blood by Pulse oximetry Systolic blood pressure Diastolic blood pressure Provider Name and Address Organization Details Last Updated DateTime 4 166.37 cm 44.9 kg/m2 267784. 31 g 60 /min 95 % 95 % 120 mm[Hg] 68 mm[Hg] Angie Rosas [facility] 4 10:03:11 Date Recorded Body height Body mass index (BMI) Body weight Heart rate Oxygen saturation Oxygen saturation in Arterial blood by Pulse oximetry Systolic blood pressure Diastolic blood pressure Provider Name and Address Organization Details Last Updated DateTime 4 166.37 cm 44 kg/m2 516369. 19 g 72 /min 95 % 95 % 130 mm[Hg] 80 mm[Hg] Fariha Jean [facility] 4 10:33:25 Social History Question Answer Notes LastModified by Organizat ion Details LastModified Time Tobacco Smoking Status Former Smoker Not Available [facility] 01/12/2020 03:36:23 What Was The Date Of Your Most Recent Tobacco Screening? 10/28/2023 [email or web address] Information not available 10/28/2023 Do You Or Have You Ever Used Any Other Forms Of Tobacco Or Nicotine? No Information not available 06/04/2023 Sex: Unknown Functional Status None recorded. Mental Status None recorded. Family History Nothing Reported. Medical History No medical history recorded. Immunizations Vaccine Type Date Status Note Provider Nam e and Address Organization Details Recorded Time COVID-19, mRNA, LNP-S, PF, 100 mcg/0.5mL dose or 50 mcg/0.25mL dose 1 completed Rohini Gisele [facility] 09/07/2020 12:02:47 Td (adult) 3 completed Rohini Jaquez [facility] 09/07/2020 12:03:07 Influenza, split virus, quadrivalent, preservative 1 completed Henok Sierra DO [address] [place], [address], [facility] 11/26/2020 13:24:41 Influenza, split virus, quadrivalent, preservative 8 completed Michelle Cook [facility] 12/09/2017 08:56:48 COVID-19, mRNA, LNP-S, PF, 100 mcg/0.5mL dose or 50 mcg/0.25mL dose 1 completed Reina Monroy [facility] 03/08/2021 11:03:32 Pneumococcal Conjugate, unspecified formulation 7 completed Chasity Galvan, ANIKA, S [address] [place], [address], [facility] 12/30/2017 09:21:11 Pneumococcal Conjugate, unspecified formulation 9 completed Chasity Galvan NP, S [address] [place], [address], [facility] 12/30/2017 09:21:37 COVID-19, mRNA, LNP-S, PF, 100 mcg/0.5mL dose or 50 mcg/0.25mL dose 2 completed Marci Ghosh [facility] 01/17/2022 13:28:00 Influenza, split virus, quadrivalent, preservative 2 completed Marci Ghosh [facility] 01/17/2022 13:28:09 influenza, unspecified formulation 3 completed Bertram Sierra [facility] 11/12/2022 13:57:37 influenza, unspecified formulation 4 completed Fariha Pena [facility] 12/06/2023 11:28:08 SARS-COV-2 (COVID-19) vaccine, UNSPECIFIED 4 [facility] 12/06/2023 11:28:15 Influenza, split virus, quadrivalent, preservative 0 completed Henok iSerra DO [address] [place] [address], [address], [facility] 01/01/2020 08:30:52 COVID-19, mRNA, LNP-S, PF, 100 mcg/0.5mL dose or 50 mcg/0.25mL dose 1 [facility] 08/31/2020 08:47:56 Past Encounters Encounter ID Performer Location Encounter Start Date Encounter Closed Date Diagnosis/Indication Diagnosis SNOMED-CT Code Diagnosis ICD10 Code [id number] Chasity Galvan NP, S [address] [address] 11/04/2017 14:09:15 11/04/2017 16:06:59 Chronic obstructive pulmonary disease 86516874 J44.9 Hypercholesterolemia 136 60100 E78.00 Essential hypertension 05561452 I10 Diabetes mellitus 601319 09 E11.9 Pain in left knee 688726 0887 42911 M25.562 [id number] Chasity Galvan NP, [address] [address] 12/30/2017 08:58:32 12/30/2017 12:33:37 Benign prostatic hyperplasia with outflow obstruction 318278185 N40.1 Hypercholesterolemia 136 86575 E78.00 Chronic ob structive pulmonary disease 62434226 J44.9 Vascular disorder 330195 09 I99.9 Essential hypertension 94773269 I10 Diabetes mellitus 454047 09 E11.9 Active or passive immunization 535101095 Z23 [id number] Chasity Galvan NP, [address] [address] 04/07/2018 13:30:45 04/07/2018 15:20:50 Diabetes mellitus 90517348 E11.9 Chronic ob structive pulmonary disease 53973228 J44.9 Cellulitis 166856161 L03 .90 Hypercholesterolemia 136 83840 E78.00 Essential hypertension 68780348 I10 Vascular disorder 651490 09 I99.9 [id number] Briseida CHRISTIANA Branham [address] [address] 08/25/2018 13:52:00 08/25/2018 14:40:43 Diabetes mellitus 00134345 E11.9 Chronic ob structive pulmonary disease 36425507 J44.9 Hypercholesterolemia 136 08855 E78.00 Essential hypertension 45940826 I10 Vascular disorder 213872 09 I99.9 Body mass index 30+ - obesity 586953143 Z68.41 Active or passive immunization 684377772 Z23 Achilles bursitis 916590 002 M76.62 Benign pro static hyperplasia 044597327 N40.0 [id number] [address] 01/12/2019 10:56:24 01/12/2019 11:58:39 Diabetes mellitus 70703337 E11.9 Chronic ob structive pulmonary disease 18245554 J44.9 Hypercholesterolemia 136 54872 E78.00 Essential hypertension 97279493 I10 Vascular disorder 325264 09 I99.9 Body mass index 30+ - obesity 741006486 Z68.41 Active or passive immunization 195403760 Z23 Achilles bursitis 257875 002 M76.62 Benign pro static hyperplasia 519524927 N40.0 Hemorrhoids 93690817 K64 .9 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 5407145968 51580 E08.42 Foot callus 920621050 L9 8.499 [id number] Briseida CHRISTIANA [place] [address] [address] 06/01/2019 09:47:09 06/01/2019 10:27:36 Chronic obstructive pulmonary disease 26190873 J44.9 Diabetes mellitus 730653 09 E11.9 Hypercholesterolemia 136 21890 E78.00 Essential hypertension 40567637 I10 Vascular disorder 536244 09 I99.9 Body mass index 30+ - obesity 129351102 Z68.41 Achilles bursitis 405726 002 M76.62 Benign pro static hyperplasia 257369190 N40.0 Hemorrhoids 14764174 K64 .9 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 4295339231 91157 E08.42 Foot callus 891096663 L9 8.499 Type 2 pallavi betes mellitus 03070206 E11.9 [id number] [address] [address] 09/01/2019 09:06:20 09/01/2019 09:43:21 Hypercholesterolemia 64244372 E78.00 Diabetes mellitus 352108 09 E11.9 Chronic ob structive pulmonary disease 15596665 J44.9 Diabetic p eripheral neuropathy 160597938 E11.40 [id number] LISA OLIVEIRA [address] [address] 12/28/2019 08:59:26 12/28/2019 09:41:52 Chronic obstructive pulmonary disease 69923393 J44.9 Essential hypertension 32621514 I10 Diabetes mellitus 411158 09 E11.9 [id number] LISA OLIVEIRA [address] [address] 03/15/2020 08:31:37 03/15/2020 10:41:45 Chronic obstructive pulmonary disease 02115475 J44.9 Acute exac erbation of chronic obstructive pulmonary disease 973356365 J44.1 Dyspnea 468763371 R06.00 [id number] LISA OLIVEIRA [address] [address] 05/16/2020 09:36:31 05/16/2020 10:20:26 Chronic obstructive pulmonary disease 13266166 J44.9 Type 2 pallavi betes mellitus 75556866 E11.9 Essential hypertension 61678971 I10 Dyspnea 974014761 R06.00 [id number] LISA OLIVEIRA [address] [address] 09/26/2020 14:13:27 09/26/2020 16:23:46 Type 2 diabetes mellitus 54679330 E11.9 Essential hypertension 05735628 I10 Chronic ob structive pulmonary disease 49782790 J44.9 Vertigo 903405745 R42 [id number] LISA OLIVEIRA [address] [place] [address] 01/30/2021 09:56:26 01/30/2021 11:18:15 Hypercholesterolemia 28595628 E78.2 Chronic ob structive pulmonary disease 89345846 J41.0 Type 2 pallavi betes mellitus 72522176 E11.9 Essential hypertension 99264557 I10 Diabetic p eripheral neuropathy 260769989 E11.40 Body mass index 30+ - obesity 711502908 Z68.41 Foot callus 329983660 L9 8.499 Neuropathy 254910382 G62 .89 [id number] LISA OLIVEIRA [address] [address] 04/12/2021 09:14:21 04/17/2021 10:51:46 Diabetic peripheral neuropathy 028021130 E11.40 Body mass index 30+ - obesity 618247481 Z68.41 Chronic ob structive pulmonary disease 16032660 J41.0 Foot callus 661645438 L9 8.499 Type 2 pallavi betes mellitus 08002134 E11.9 Strain of supraspinatus muscle AND/OR tendon 20345902 S46.012A [id number] LISA OLIVEIRA [address] [address] 05/15/2021 11:42:16 05/16/2021 08:18:27 Seborrheic keratosis 411903353 L82.1 Type 2 pallavi betes mellitus 77558898 E11.9 Essential hypertension 66980360 I10 Vertigo 568067144 R42 [id number] LISA OLIVEIRA [address] [address] 06/19/2021 13:28:12 06/20/2021 14:55:55 Type 2 diabetes mellitus 09664643 E11.9 Essential hypertension 14260199 I10 Vertigo 005854814 R42 Tobacco de pendence syndrome 40133352 F17.290 Active or passive immunization 377687517 Z23 [id number] [address] 09/25/2021 15:33:57 09/25/2021 15:58:50 Chronic obstructive pulmonary disease 62395679 J41.0 Essential hypertension 81389911 I10 Type 2 pallavi betes mellitus 67663888 E11.9 Body mass index 30+ - obesity 020516982 Z68.41 [id number] [address]ISA [address] [address] 01/08/2022 14:32:18 01/09/2022 08:33:50 Diabetes mellitus 16675812 E11.9 Essential hypertension 95645300 I10 Hypercholesterolemia 136 42467 E78.2 [id number] LISA OLIVEIRA [address] [address] 04/10/2022 08:15:36 04/13/2022 08:44:26 Chronic obstructive pulmonary disease 52123335 J41.0 Essential hypertension 11452080 I10 Type 2 pallavi betes mellitus 34630502 E11.9 Hypercholesterolemia 136 12105 E78.2 [id number] LISA OLIVEIRA [address] [address] 07/09/2022 09:47:19 07/09/2022 17:15:24 Hypercholesterolemia 38303785 E78.2 Chronic ob structive pulmonary disease 30810881 J41.0 Essential hypertension 70547770 I10 Diabetes mellitus 373502 09 E11.9 Obesity 059031393 E66.01 Type 2 pallavi betes mellitus 67890819 E11.9 Diabetic p eripheral neuropathy 008482984 E11.41 Body mass index 30+ - obesity 902093776 Z68.41 Foot callus 361509781 L9 8.499 [id number] LISA OLIVEIRA [address] [address] 09/17/2022 10:11:43 09/18/2022 09:09:14 Hypercholesterolemia 21242024 E78.2 Obesity 640134084 E66.01 Type 2 pallavi betes mellitus 47477193 E11.9 Essential hypertension 11295267 I10 [id number] LISA OLIVEIRA [address] [address] 12/31/2022 10:03:05 12/31/2022 12:33:38 Low back pain 179805223 M54.59 Essential hypertension 84263241 I10 Hypercholesterolemia 136 57332 E78.2 Type 2 pallavi betes mellitus 60453214 E11.9 [id number] LISA OLIVEIRA [address] [address] 06/04/2023 09:52:08 06/04/2023 10:30:41 Type 2 diabetes mellitus 49758129 E11.40 E11.9 Body mass index 30+ - obesity 735071754 Z68.41 Chronic ob structive pulmonary disease 21624329 J41.0 Skin ulcer 80534151 L98. 491 [id number] LISA OLIVEIRA [address] [address] 07/01/2023 09:10:33 07/02/2023 08:11:09 Uvulitis 140378449 K12.2 [id number] LISA OLIVEIRA [address] [address] 10/28/2023 10:28:56 10/28/2023 11:17:03 Foot ulcer due to type 2 diabetes mellitus 5746542369 100 E11.621 Type 2 pallavi betes mellitus 17060893 E11.40 E11.9 Depression screening 171 788130 Z13.31 Diabetes mellitus 643639 09 E11.9 Diabetic p eripheral neuropathy 029167960 E11.41 Chronic ob structive pulmonary disease 75682519 J41.0 Essential hypertension 54909771 I10 Health Concerns Section Related Observation LastModified by Organization Detai ls LastModified Time None Recorded Concern Status LastModified by Organization Details LastModified Time None Recorded Advance Directives Directive None Recorded Payers Encounter Date Sequence Insurance Name Policy Number Policy Byers Covered Member ID Byers Member ID Guarantor Name 09/17/2022 1 [place] [facility] Yogi Mayo [id number] Yogi Mayo 09/17/2022 1 [place] [employer] [facility] Yogi Mayo [id number] Yogi Mayo 12/31/2022 1 [place] [facility] Yogi Mayo [id number] Yogi Mayo 12/31/2022 1 [place] [employer] Yogi Connerointe [id number] Yogi Fuchs Gael 06/04/2023 1 [facility] - DOS ON OR AFTER 2022 - MEDICARE [place]ANTAGE [place] VANTAGE - PPO) Ygoi Connerointe [id number] Yogi Connerointe 07/01/2023 1 [facility] ALLIANCE - DOS ON OR AFTER 2022 - [place]ANT[place] - [place]PO) Yogi Fuchs Gael [id number] Yogi Connerointe 10/28/2023 1 [facility] ALLIANCE - DOS ON OR AFTER 2022 - [place]ANTAGE - PPO) Yogi Fuchs Gael [id number] Yogi Mayo Notes Date Note Type Note Provider Name and Address Organization Details Recorded Time 09/17/2022 text/html medication check HLD: the bw was wnl obesity: discussed dietary changes and activity level vertigo: mild episode last weekdoing wellno prolonged issues his A1c is 6.9% which is excellenthis cholesterol looked excellent as well BP elevated in office but that tends to be normal for him; recheck is normal LISA OLIVEIRA [address], [place], [address], [facility] 09/17/2022 10:50:51 12/31/2022 text/html f/u low back charley n and med check low back painsaw , no changes in the XRgiven medication from finally sees PT tomorrowwill give tramadol PRN for sleep and so he can perform PT and sleep LISA OLIVEIRA [address], [place], [address], [facility] 12/31/2022 10:44:08 06/04/2023 text/html F/U Diabetes the patient reports he is having some mucus in the morning, told to adjust his CPAP moisture settings will see if that works A1c is stable, 7.2%continue on medications BMI is still elevated which pt is aware will set up standing orders for patient no questions, no changes today [facility] [address] [facility] [place], [address], [facility] 06/04/2023 10:29:53 07/01/2023 text/html [facility] The patient is participating in this appointment via telemedicine communication with a phone call/video calling service ([employer])The patient consents to use of these platforms in place of an in-person appointment due to either sick symptoms the patient is presenting with or current office closure due to COVID exposure in order to keep our office staff and patients safe the patient reports he was sent to the ER due to uvulitis, very swollen, choked on it, couldn't breathe the patient reports that he was started on abx and steroids IV, was not d/c with anything no additional abx or steroid will start him on abx or steroid combination since he is still exhibiting symptoms including swollen uvula, sore throat, productive cough will fu with me on saturday with [facility] call sooner if he develops sob or fever LISA OLIVEIRA [address] [facility] [address], [place], [address], [facility] 07/01/2023 15:20:05 10/28/2023 text/html f/u 3 mos foot ulcer T2DM: resolved T2DM: the patient A1c is 6.8% HTN: today in the office the patient BP is 130/80 L arm sitting the patient is doing well on the BP medication with no side effects and no adjustment of their medications needed today at the appointment well-controlled on medication denies chest pain, sob, ankle swelling, orthopnea, palpitations COPD: stable LISA OLIVEIRA [address] [facility],[address], [place], [address], [facility] 10/28/2023 10:54:07
== END ==
LOC: HO.CARD 07:41
PROVIDERS: PCP Physician Assistant; Visit Provider Internal Medicine Cardiovascular Disease
DX: R07.9 Chest pain, unspecified (principal); I25.10 Atherosclerotic heart disease of native coronary artery without angina pectoris
CPT/HCPCS: 78452; 93017; A9500; J0280; J2785

== ENCOUNTER → 2024-02-21 07:44 | Outpatient (BNV) | payer MEDICARE, MEDICAID, SELFPAY | PROVIDERS: PCP Physician Assistant; Visit Provider Nurse Practitioner Family | DX: I49.1 Atrial premature depolarization (principal); R06.02 Shortness of breath | CPT/HCPCS: 78452; 93016; 93018 ==

== ENCOUNTER → 2024-03-25 09:32 | Outpatient (REF) | payer MEDICARE, SELFPAY ==
--- NOTE | 2024-03-25 09:36 | CA_ITS ---
Transthoracic Echocardiogram Patient (Last, First, Middle): Yogi Mayo C Gender: Male Date of : 1955 Age: 68 Procedure Date: 03/25/2024 Procedure Type: Transthoracic Echocardiogram Location: OP Height: 172.72 cm Weight: 120.66 kg BSA: 2.31 m2 Heart Rate: bpm BP: 140 / 70 mmHg Business Analyst Sales Operations: MEGAN Gandhi MD: Janny GALLAGHER Field Contractor: Manny Gamez MD Symptoms: I25.10 - Atherosclerotic heart disease of [place] coronary artery without... Study Quality: Fair/Contrast ECG Rhythm: Sinus Conclusions: - 1. Low normal LV ejection fraction with mild LVH with LVEF of 50-55% with elevated filling pressures 2. Moderately dilated right ventricle with preserved systolic function 3. Mildly dilated left atrium 4. Mild aortic stenosis 5. Normal RV systolic pressure 6. Mildly dilated ascending aorta 3.9 cm 7. No gross pericardial effusion Findings Procedure Information Contrast agent, definity, is being given per protocol without apparent complications. Left Ventricle Normal left ventricular cavity size. There is mildly increased left ventricular wall thickness. The left ventricular systolic function is low normal. The visually estimated ejection fraction is between 50-55%. Regional wall motion abnormalities can not be excluded due to suboptimal endocardial definition. Spectral Doppler is indicative of an impaired relaxation filling pattern. Elevated filling pressures. E/E prime ratio is >15, consistent with elevated filling pressures. Right Ventricle Moderately increased right ventricular cavity size. There is normal right ventricular systolic function. Atria The left atrium is mildly dilated. There is lipomatous hypertrophy of the interatrial septum. There is no evidence of interatrial shunt. The right atrium is likely dilated. Aortic Valve There is mild calcification of the aortic valve. There is mild thickening of the aortic valve. There is mild aortic valve stenosis. There is no aortic valve regurgitation. Mitral Valve There is mild anterior and moderate posterior mitral leaflet thickening. There is moderate mitral annular calcification. There is trace mitral valve regurgitation. There is no mitral valve stenosis. Pulmonic Valve The pulmonic valve is likely normal. Tricuspid Valve Normal tricuspid valve structure. There is mild tricuspid valve regurgitation. The right ventricular systolic pressure is normal. The right ventricular systolic pressure is 30 mmHg. Normal right atrial pressure. There is no evidence of pulmonary hypertension. Great Vessels The pulmonary artery was not well visualized. There is mild dilatation of the ascending aorta measuring 3.90 cm. Small plaque is seen in the sinuses of Valsalva. Venous The inferior vena cava is normal in size and collapses greater than 50% with inspiration. Pericardium/Pleural There is no evidence of pericardial effusion. Prior Study Comparison no previous study in the last 5 years for comparison Measurements 2D Linear Measurements IVSd: 1.18 0.6-0.9/0.6-1.0 cm LVIDd: 5.61 3.9-5.3/4.2-5.9 cm LVIDd Index: 2.43 2.4-3.2/2.2-3.1 cm/m2 LVIDs: 4.45 2.0-3.6 cm LVPWd: 1.20 0.7-1.1 cm Ao Root: 4.20 2.1-3.5 cm LA Diam: 4.30 2.7-3.8/3.0-4.0 cm LAIDs Index: 1.86 1.5-2.3 cm/m2 LV Mass: 346.86 67-162/88-224 g LV Mass Index: 150.16 43-95/49-115 g/m2 LVOT Diam: 2.10 3.0+(-)1.3 cm 2D Systolic Function EF 4C: 53.60 >55% EF 2C: 51.70 >55% EF BiP: 52.30 >55% Mitral Valve MV Pk E: 0.85 MV PK A: 1.18 MV Decel Time: 274.00 E/A: 0.70 E'Lateral: 5.11 E'Medial: 4.68 E/E' Med: 18.10 E/E' Lat: 16.60 PHT: 80.00 MVA PHT: 2.75 Decel [place]: 3.10 Aortic Valve AoV Pk [place]: 2.21 AoV Mn [place]: 1.52 AoV VTI: 0.49 AoV Pk Grad: 20.00 Aov Mn Grad: 11.00 LAYLA Cont.VTI: 1.98 LVOT LVOT Pk [place]: 1.14 LVOT Mn [place]: 0.82 LVOT VTI: 0.28 LVOT Pk Grad: 5.00 LVOT Mn Grad: 3.00 LVOT Diam: 2.10 LVOT Area: 3.46 Diastolic Function MV Pk E: 0.85 MV Pk A: 1.18 E/A: 0.70 E'Medial: 4.68 E/E' Med: 18.10 E' Laterial: 5.11 E/E' Lat: 16.60 Right Ventricle TAPSE (mm): 29.50 TVS' [place]: 15.20 Tricuspid Valve TR Pk [place]: 2.36 TR Pk Grad: 22.00 RA Press: 8.00 RVSP: 30.00 Great Vessels Aorta Ao Root-2D: 4.20 2.0-3.7 cm Ao Asc: 3.90 2.1-3.4 cm Ao Arch: 2.70 Updated in Other Vendor System with Status of Final Manny Gamez MD electronically signed on 03/26/2024 12:26:28 PM with status of Final
--- OUTSIDE RECORDS SUMMARY | 2024-03-25 10:11 | XMS_ITS | Data Portability ---
Author Organization [facility] Home Service Address [address] [place] [address] Assessment Encounter Date Assessment Date Assessment LastModified [...] HbA1c (hemoglobi n A1c), blood 2022 023 [facility], [address] [place] [address], [address], 3 10:55:15 CBC w/ auto diff 2022 023 [facility], [address] [place] [address], [address], 10:55:15 lipid panel, blood 2022 023 [facility], [address] [place] [address], [address], 10:55:15 CMP, serum or plasma 2022 023 [facility], [address] [place] [address], [address], 3 10:55:15 CMP, serum or plasma 2022 023 [facility], [address] [place] [address], [address], 3 11:24:04 lipid panel, blood 2022 023 [facility], [address] [place] [address], [address], 10:27:58 hemoglobin A1c, QN, blood 2022 023 [facility], [address] [place] [address], [address], 3 11:24:04 microalbum in, urine 2022 023 [facility], [address] [place] [address], [address], 3 10:27:58 CBC w/ auto diff 2022 023 [facility], [address] [place] [address], [address], 3 10:27:58 CMP, serum or plasma 2022 024 [facility], [address] [place] [address], [address], 3 11:24:04 hemoglobin A1c, QN, blood 2022 024 [facility], [address] [place] [address], [address], 3 11:24:04 CMP, serum or plasma 2023 024 [facility], [address] [place] [address], [address], 4 10:30:12 lipid panel, blood 2023 024 [facility], [address] [place] [address], 269[address], 4 10:30:12 hemoglobin A1c, QN, blood 2023 024 [facility], [address] [place] [address], [address], 4 10:30:12 CBC w/ auto diff 2023 024 [facility], [address] [place] [address], 10[address], 4 11:42:26 CBC w/ auto diff 2023 024 [facility], [address] [place] [address], [address], 4 11:42:26 CMP, serum or plasma 2023 024 [facility], [address] [facility], [place], [address], 4 10:54:08 lipid panel, blood 2023 024 [facility], [address] [facility], [place], [address], 4 10:54:08 hemoglobin A1c, QN, blood 2023 024 [facility], [address] [facility], [place], [address], 4 10:54:08 CBC w/ auto diff 2023 024 [facility], [address] [place] [address], [address], 4 10:54:08 Referral None recorded. Procedures None recorded. Surgeries None recorded. Imaging None recorded. Medication Orders tramadol 50 mg tablet 2022 023 [email or web address] [facility]Pharmacy #[id number], [address] [place], [address], 3 10:44:04 Lantus Solostar U-100 Insulin 100 unit/mL (3 mL) subcutaneo us pen 2023 024 [facility][id number], [address] [place], [address], 4 10:23:29 albuterol sulfate HFA 90 mcg/actuat ion aerosol inhaler 2023 024 [facility] #[id number], [address] [place], [address], 4 10:26:37 prednisone 10 mg tablet 2023 024 [facility] #[id number], [address] [place], [address], 4 15:17:04 amoxicilli n 875 mg-potassi um clavulanat e 125 mg tablet 2023 024 [facility] #[id number], [address] [place], [address], 4 10:45:15 Patient TargetsNo targets recorded. Patient InstructionsNo instructions recorded. Reason for Referral None Reported. Results Created Date Observation Date Name Description Value Unit Range Abnormal Flag Note LastModifiedBy Organization Detail LastModifiedTime 06/23/19 24 06/22/2023 US, echoc ardio gram No observ ation record ed. [email or web address] Not Available 2023 08:49:04 02/27/20 24 02/21/2024 myoca rdial perfu evans study w/ eject ion fract ion (PROC ) No observ ation record ed. [facility] (Medical Records) [address] [place] [address], [address], 02/27/2024 19:24:57 Result Notes None recorded. Problems Name Problem SNOMED Code Status Onset Date Resolution Date Notes Provider Name and Address Organization Details Recorded Time Diabetes mellitus 14231147 Active 2017 Not Available [facility] 3 10:06:37 Obesity 614709306 Active 2017 Not Available [facility] 3 10:06:37 Chronic obstructi ve pulmonary disease 45997130 Active 2017 Not Available [facility] 3 10:06:37 Vertigo 508538726 Active 2017 Not Available [facility] 3 10:06:37 Essential hypertens ion 39326714 Active 2017 Not Available [facility] 3 10:06:37 Hyperchol esterolem ia 61972480 Active 2017 Not Available [facility] 3 10:06:37 Vascular disorder 73241420 Active 2017 Not Available [facility] 3 10:06:37 Body mass index 30+ - obesity 528050165 Active 2018 Not Available [facility] 3 10:06:37 Type 2 diabetes mellitus 26614725 Active 2020 Not Available [facility] 3 10:06:37 Tobacco dependenc e syndrome 87358836 Active 2021 Not Available [facility] 3 10:06:37 Diabetic periphera l neuropath y 112560640 Active 2022 Not Available [facility] 3 10:06:37 Foot callus 463989468 Active 2022 Not Available [facility] 3 10:06:37 Low back pain 567794363 Active 2022 LISA OLIVEIRA [address] [place] [address], [phone], [facility] 3 10:22:49 Foot ulcer due to type 2 diabetes mellitus 201330658342 0 Active 2022 LISA OLIVEIRA [address] [place] [address], [address], [facility] 3 15:27:14 Skin ulcer 60023301 Active 2023 LISA OLIVEIRA [address] [place] [address], [address], [facility] 4 10:24:36 Uvulitis 118723065 Active 2023 LISA OLIVEIRA [address] [place] [address], [address], [facility] 4 15:14:36 Problem Notes None recorded. Procedures Surgical History Date Name Laterality Status Provider Name and Address Organization Details Recorded Time 2 Colonoscopy completed Michelle Cook [facility] 04/07/2018 08:21:02 Imaging Results Imaging Date Name Status LastModified by Organization Details LastModified Time 06/22/2023 US, echocardiogram completed [email or web address] Inform ation not available 06/25/2023 08:49:04 02/21/2024 myocardial perfusion study w/ ejection fraction (PROC) completed [facility] (Medical Records) [address] [facility], [place], [address], 02/27/2024 19:24:57 Procedure Notes None recorded. Medical Equipment None [...] THREE TIMES A DAY NEEDED FOR DIZZINESS 10/31 /2022 completed Not Available Not Available Not Available [...] 2023 active Not Available Not Available Not Avitalia lable Incruse Ellipta 62.5 mcg/actuati on powder [...] 2023 active Not Available Not Available Not [employer] lable Accu-Chek Fastclix Lancet Drum USE 3 TIMES A DAY FOR SUGAR CHECKS active Not Available Not Available No t Available FreeStyle Sumi 14 Day [place] CHECK GLUCOSE LEVEL WITH READER 3 TIMES PER DAY 07/05 completed Not Available Not Available Not Available FreeStyle Sumi 14 Day Sensor kit use as directed 2020 active Not Available Not Available Not [employer] lable BD Marian 2nd Gen Pen Needle [...] Updated DateTime 3 166.37 cm 44.4 kg/m2 756419. 53 g 54 /min 96 % 96 % 142 mm[Hg] 76 mm[Hg] Angie Pillai [facility] 3 10:29:18 Date Recorded Body height Body mass index (BMI) Body weight Heart rate Oxygen saturation Oxygen saturation in Arterial blood by Pulse oximetry Systolic blood pressure Diastolic blood pressure Provider Name and Address Organization Details Last Updated DateTime 3 166.37 cm 44.9 kg/m2 332602. 31 g 56 /min 96 % 96 % 142 mm[Hg] 68 mm[Hg] Bridget Gastelum [facility] 3 10:15:59 Date Recorded Body height Body mass index (BMI) Body weight Heart rate Oxygen saturation Oxygen saturation in Arterial blood by Pulse oximetry Systolic blood pressure Diastolic blood pressure Provider Name and Address Organization Details Last Updated DateTime 4 166.37 cm 44.9 kg/m2 782081. 31 g 60 /min 95 % 95 % 120 mm[Hg] 68 mm[Hg] Angie Pillai [facility] 4 10:03:11 Date Recorded Body height Body mass index (BMI) Body weight Heart rate Oxygen saturation Oxygen saturation in Arterial blood by Pulse oximetry Systolic blood pressure Diastolic blood pressure Provider Name and Address Organization Details Last Updated DateTime 4 166.37 cm 44 kg/m2 451908. 19 g 72 /min 95 % 95 % 130 mm[Hg] 80 mm[Hg] Fariha Pena [facility] 4 10:33:25 Social History Question Answer Notes LastModified by Organizat ion Details LastModified Time Tobacco Smoking Status Former Smoker Not Available [facility] 01/12/2020 03:36:23 What Was The Date Of Your Most Recent Tobacco Screening? 10/28/2023 [email or web address] Information not available 10/28/2023 Do You Or Have You Ever Used Any Other Forms Of Tobacco Or Nicotine? No [email or web address] Information not available 06/04/2023 Sex: Unknown Functional Status None recorded. Mental Status None recorded. Family History Nothing Reported. Medical History No medical history recorded. Immunizations Vaccine Type Date Status Note Provider Nam e and Address Organization Details Recorded Time COVID-19, mRNA, LNP-S, PF, 100 mcg/0.5mL dose or 50 mcg/0.25mL dose 1 completed Rohini josé [facility] 09/07/2020 12:02:47 Td (adult) 3 completed Rohini josé [facility] 09/07/2020 12:03:07 Influenza, split virus, quadrivalent, preservative 1 completed Henok Sierra DO [address] [place] [address], [phone], [facility] 11/26/2020 13:24:41 Influenza, split virus, quadrivalent, preservative 8 completed [facility] 12/09[facility]2017 08:56:48 COVID-19, mRNA, LNP-S, PF, 100 mcg/0.5mL dose or 50 mcg/0.25mL dose 1 [facility] 03/08/2021 11:03:32 Pneumococcal Conjugate, unspecified formulation 7 completed Chasity Galvan NP, S [address] [place] [address], [phone], [facility] 12/30/2017 09:21:11 Pneumococcal Conjugate, unspecified formulation 9 completed Chasity Galvan NP, S [address] [place] [address], [phone], [facility] 12/30/2017 09:21:37 COVID-19, mRNA, LNP-S, PF, 100 mcg/0.5mL dose or 50 mcg/0.25mL dose 2 completed Marci josé, [facility] 01/17/2022 13:28:00 Influenza, split virus, quadrivalent, preservative [address] [facility], [facility] 01/17/2022 13:28:09 influenza, unspecified formulation [address] [facility], [facility] 11/12/2022 13:57:37 influenza, unspecified formulation [address] [facility], [facility] 12/06/2023 11:28:08 SARS-COV-2 (COVID-19) vaccine, UNSPECIFIED 4 completed Fariha Pena [facility] 12/06/2023 11:28:15 Influenza, split virus, quadrivalent, preservative 0 completed Henok Sierra, [address] [place] [address], [phone], [facility] 01/01/2020 08:30:52 COVID-19, mRNA, LNP-S, PF, 100 mcg/0.5mL dose or 50 mcg/0.25mL dose 1 completed Reina Monroy [facility] 08/31/2020 08:47:56 Past Encounters Encounter ID Performer Location Encounter Start Date Encounter Closed Date Diagnosis/Indication Diagnosis SNOMED-CT Code Diagnosis ICD10 Code Diagnosis Note [id number] Chasity Galvan NP, [address] [place] [address] 11/04/2017 14:09:15 11/04/2017 16:06:59 Chronic obstructive pulmonary disease 90280340 J44.9 Hypercholesterolemia 136 61361 E78.00 Essential hypertension 63637558 I10 Diabetes mellitus 628271 09 E11.9 Pain in left knee 518360 2308 56014 M25.562 [id number] Chasity Galvan NP, S [address],[place] [address] 12/30/2017 08:58:32 12/30/2017 12:33:37 Benign prostatic hyperplasia with outflow obstruction 124374127 N40.1 was not taking- restart Hypercholesterolemia 136 33163 E78.00 HDL 33, encourage activity Chronic ob structive pulmonary disease 67885903 J44.9 stable- no recent exacerbati on Vascular disorder 009263 09 I99.9 up to date cardiologi st and vascular Essential hypertension 40408350 I10 stable Diabetes mellitus 849463 09 E11.9 A1C 7.2-follow Active or passive immunization 159855130 Z23 had flu vaccine, up to date pneumonia vaccines [id number] Chasity Galvan, ANIKA, S [facility] [address] [facility],[place] [address] 04/07/2018 13:30:45 04/07/2018 15:20:50 Diabetes mellitus 45782689 E11.9 A1C 7.2-follow Chronic ob structive pulmonary disease 08029020 J44.9 stable- no recent exacerbati on Cellulitis 664685230 L03 .90 if worse or no better-com e back in Hypercholesterolemia 136 35343 E78.00 HDL 33, encourage activity Essential hypertension 62666415 I10 stable Vascular disorder 728670 09 I99.9 up to date cardiologi st and vascular [id number] June CHRISTIANA Branham [facility] [address] [facility],[place] [address] 08/25/2018 13:52:00 08/25/2018 14:40:43 Diabetes mellitus 93695279 E11.9 a1c 7.6 (up from 7.2) has lost weight though through keto diet recommende d to monitor blood sugar closely on this diet as he may go low with carb restrictio n and insulin continue current regimen continue weight loss Chronic ob structive pulmonary disease 92971058 J44.9 stable- no recent exacerbati on Hypercholesterolemia 136 82150 E78.00 HDL 36, up from 33 LDL well within goal range Essential hypertension 48416386 I10 stable Vascular disorder 361309 09 I99.9 s/p carotid endarterec roz stent in heart up to date cardiologi st and vascular Body mass index 30+ - obesity 683107051 Z68.41 losing weight Active or passive immunization 603606364 Z23 Achilles bursitis 711616 002 M76.62 nsaids + ortho referral Benign pro static hyperplasia 348787444 N40.0 still waking up at least 5-6 times per night, which is actually improved from previously [id number] [facility] [address] [facility], [place] [address] 01/12/2019 10:56:24 01/12/2019 11:58:39 Diabetes mellitus 09373709 E11.9 a1c is 7.2, down from 7.6 previously continue current regimen continue weight loss Chronic ob structive pulmonary disease 69973255 J44.9 stable- still quite a bit of exertional sob no recent exacerbati ons will trial breo continue incruse and ventolin as needed has quit smoking lives with a smoker Hypercholesterolemia 136 56654 E78.00 stable Essential hypertension 46595176 I10 stable Vascular disorder 141563 09 I99.9 s/p carotid endarterec roz stent in heart up to date cardiologi st and vascular Body mass index 30+ - obesity 994704981 Z68.41 losing weight Active or passive immunization 015841943 Z23 Achilles bursitis 206667 002 M76.62 saw ortho, will hold off on further therapy may consider second op in not improvemen t by march Benign pro static hyperplasia 429676839 N40.0 still waking up at least 5-6 times per night, despite the flomax Hemorrhoids 75652345 K64 .9 if bleeding persists after 2-3 weeks, plan is to see gi 2/2 constipati on 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 7679415819 70420 E08.42 continue diabetic shoe wear Foot callus 307736693 L9 8.499 continue diabetic shoe wear [id number] June Carrol [facility] [address] [facility],[address] [place] [place] [address] 06/01/2019 09:47:09 06/01/2019 10:27:36 Chronic obstructive pulmonary disease 71582035 J44.9 continue breo+ incruse and very rare need for rescue inhaler has quit smoking lives with a smoker Diabetes mellitus 073030 09 E11.9 a1c is up to 7.9 would like to work on diet Hypercholesterolemia 136 68084 E78.00 stable Essential hypertension 44110332 I10 mildly elevated Vascular disorder 477815 09 I99.9 s/p carotid endarterec roz stent in heart up to date cardiologi st and vascular Body mass index 30+ - obesity 121791376 Z68.41 plan to work on diet for better dm control and weight loss Achilles bursitis 592487 002 M76.62 saw ortho, will hold off on further therapy may consider second op in not improvemen t by march Benign pro static hyperplasia 900647399 N40.0 seeing urology Hemorrhoids 37413279 K64 .9 still hvaing constipati on no more blood in the stool would like to see GI 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 5316707641 93361 E08.42 continue diabetic shoe wear Foot callus 112985107 L9 8.499 continue diabetic shoe wear Type 2 pallavi betes mellitus 85058525 E11.9 [id number] LISA OLIVEIRA Internal [facility] [address] [facility],[place] [address] 09/01/2019 09:06:20 09/01/2019 09:43:21 Hypercholesterolemia 66897248 E78.00 didn't get it done will give him paperwork again Diabetes mellitus 782690 09 E11.9 a1c is down Chronic ob structive pulmonary disease 08701318 J44.9 stable Diabetic p eripheral neuropathy 295352661 E11.40 would like to start gabapentin for neuropathy for his feet [id number] LISA OLIVEIRA [facility] [address] [facility],[address] [place] [address] 12/28/2019 08:59:26 12/28/2019 09:41:52 Chronic obstructive pulmonary disease 65957357 J44.9 stable Essential hypertension 59643089 I10 fine today will continue to monitor Diabetes mellitus 143912 09 E11.9 a1c needs recheck [id number] LISA OLIVEIRA [facility] [address] [facility],[place] [address] 03/15/2020 08:31:37 03/15/2020 10:41:45 Chronic obstructive pulmonary disease 13704210 J44.9 will treat his symptoms in the mean time, he is out of his inhalers so will supply him with them for COPD control Acute exac erbation of chronic obstructive pulmonary disease 127825438 J44.1 will treat with pred taper and abx to mitigate his symptoms until he can be tested will fu with results will call if symptoms worsen Dyspnea 500347453 R06.00 will see if taper works with increasing his ability to breath, to breath more easily [id number] LISA OLIVEIRA [facility] [address] [facility],[place] [address] 05/16/2020 09:36:31 05/16/2020 10:20:26 Chronic obstructive pulmonary disease 10952178 J44.9 stable, no interventi on needed Type 2 pallavi betes mellitus 29895283 E11.9 stable, no interventi on Essential hypertension 87994699 I10 will recheck at next appt Dyspnea 837689424 R06.00 pred taper worked excellent while patient had COVID, will check lungs to see if any longer term damage still having very mild sob [id number] LISA OLIVEIRA [facility] [address] [facility],[place] [address] 09/26/2020 14:13:27 09/26/2020 16:23:46 Type 2 diabetes mellitus 05553616 E11.9 stable, no interventi on Essential hypertension 70418587 I10 will recheck at next appt Chronic ob structive pulmonary disease 99899621 J44.9 stable, no interventi on needed Vertigo 381915641 R42 will fu with PT which he was given referral from hospitalwi ll give him the exercise to try at home by himself [id number] LISA OLIVEIRA [facility] [address] [facility],[place] [address] 01/30/2021 09:56:26 01/30/2021 11:18:15 Hypercholesterolemia 57510547 E78.2 didn't get it done will give him paperwork again Chronic ob structive pulmonary disease 29334011 J41.0 stable, no interventi on needed Type 2 pallavi betes mellitus 98209647 E11.9 stable, no interventi on given free style free sample Essential hypertension 75256866 I10 will recheck at next appt Diabetic p eripheral neuropathy 846621795 E11.40 having issues with his insuance with his metformin Body mass index 30+ - obesity 523742749 Z68.41 discussed diet and exercise Foot callus 024544016 L9 8.499 stable Neuropathy 473275525 G62 .89 will increase the gabapentin to 300 mg BID [id number] LISA OLIVEIRA [facility] [address] [place] [address],[place] [address] 04/12/2021 09:14:21 04/17/2021 10:51:46 Diabetic peripheral neuropathy 782605954 E11.40 having issues with his insuance with his metformin Body mass index 30+ - obesity 016965485 Z68.41 discussed diet and exercise Chronic ob structive pulmonary disease 84742567 J41.0 stable, no interventi on needed Foot callus 936168188 L9 8.499 stable Type 2 pallavi betes mellitus 92099008 E11.9 stable, no interventi ongiven free style free sample Strain of supraspinatus muscle AND/OR tendon 36931440 S46.012A will start on medication [id number] LISA OLIVEIRA [facility] [address] [place] [address],[place] [address] 05/15/2021 11:42:16 05/16/2021 08:18:27 Seborrheic keratosis 053978255 L82.1 will fu with derm Type 2 pallavi betes mellitus 84188239 E11.9 stable, no interventi ongiven free style free sample Essential hypertension 37092422 I10 stable Vertigo 706878944 R42 resolved [id number] LISA OLIVEIRA [facility] [address] [place] [address],[place] [address] 06/19/2021 13:28:12 06/20/2021 14:55:55 Type 2 diabetes mellitus 87245823 E11.9 stable, no interventi ongiven free style free sample Essential hypertension 95906072 I10 stable Vertigo 798151645 R42 PT tomorrow Tobacco de pendence syndrome 35705225 F17.290 discussed Active or passive immunization 240775939 Z23 advised [id number] LISA OLIVEIRA [facility] [address] [facility],[place] [address] 09/25/2021 15:33:57 09/25/2021 15:58:50 Chronic obstructive pulmonary disease 33752577 J41.0 stable, no interventi on needed Essential hypertension 64261797 I10 stable Type 2 pallavi betes mellitus 97139864 E11.9 stable, no interventi ongiven free style free sample Body mass index 30+ - obesity 752228808 Z68.41 discussed diet and exercise [id number] LISA OLIVEIRA [facility] Internal [facility] [address] [facility],[place] [address] 01/08/2022 14:32:18 01/09/2022 08:33:50 Diabetes mellitus 95471709 E11.9 a1c needs recheck Essential hypertension 24883929 I10 stable Hypercholesterolemia 136 37599 E78.2 stable [id number] LISA OLIVEIRA [facility] Internal [facility] [address] [facility],[place] [address] 04/10/2022 08:15:36 04/13/2022 08:44:26 Chronic obstructive pulmonary disease 28507560 J41.0 stable, no interventi on needed Essential hypertension 68794910 I10 stable Type 2 pallavi betes mellitus 53499060 E11.9 needs to work on diet Hypercholesterolemia 136 76129 E78.2 stable [id number] LISA OLIVEIRA [facility] Internal Medicine [address] [facility],[place] [address] 07/09/2022 09:47:19 07/09/2022 17:15:24 Hypercholesterolemia 18380494 E78.2 stable Chronic ob structive pulmonary disease 61678264 J41.0 stable, no interventi on needed Essential hypertension 58243919 I10 stable Diabetes mellitus 449502 09 E11.9 a1c needs recheck Obesity 390962385 E66.01 stable Type 2 pallavi betes mellitus 15654310 E11.9 needs to work on diet Diabetic p eripheral neuropathy 597656683 E11.41 having issues with his insuance with his metformin Body mass index 30+ - obesity 297127107 Z68.41 discussed diet and exercise Foot callus 061605536 L9 8.499 stable [id number] LISA OLIVEIRA [facility] Internal Medicine [address] [facility],[place] [address] 09/17/2022 10:11:43 09/18/2022 09:09:14 Hypercholesterolemia 76087585 E78.2 stable Obesity 005705347 E66.01 stable Type 2 pallavi betes mellitus 84346280 E11.9 A1c is 6.9% Essential hypertension 28845284 I10 stablebett er with recheck [id number] LISA OLIVEIRA [facility] Internal Medicine [address] [facility],[place] [address] 12/31/2022 10:03:05 12/31/2022 12:33:38 Low back pain 194568163 M54.59 will start on tramadol Essential hypertension 48256369 I10 stablebett er with recheck Hypercholesterolemia 136 70086 E78.2 stablerech rohit lab work Type 2 pallavi betes mellitus 96391866 E11.9 A1c is 6.9% [id number] LISA OLIVEIRA [facility] Internal Medicine [address] [facility],[place] [address] 06/04/2023 09:52:08 06/04/2023 10:30:41 Type 2 diabetes mellitus 68070106 E11.40 E11.9 continue on medication as prescribed Body mass index 30+ - obesity 958082119 Z68.41 discussed diet and exercise Chronic ob structive pulmonary disease 23038544 J41.0 stable, no interventi on needed Skin ulcer 40695913 L98. 491 resolved [id number] LISA OLIVEIRA [facility] Internal Medicine [address] [facility] [address] 07/01/2023 09:10:33 07/02/2023 08:11:09 Uvulitis 965595323 K12.2 agreed to abx and steroid taper after the fact [id number] LISA OLIVEIRA [facility] Internal Medicine [address] [facility],[place] [address] 10/28/2023 10:28:56 10/28/2023 11:17:03 Foot ulcer due to type 2 diabetes mellitus 2435403070 100 E11.621 stable Type 2 pallavi betes mellitus 15155847 E11.40 E11.9 stablesees endo Depression screening 171 020219 Z13.31 Diabetes mellitus 470069 09 E11.9 a1c needs recheck Diabetic p eripheral neuropathy 457174833 E11.41 having issues with his insuance with his metformin Chronic ob structive pulmonary disease 27692873 J41.0 stable, no interventi on needed Essential hypertension 99704170 I10 stablebett er with recheck Health Concerns Section Related Observation LastModified by Organization Detai ls LastModified Time None Recorded Concern Status LastModified by Organization Details LastModified Time None Recorded Advance Directives Directive None Recorded Payers Encounter Date Sequence Insurance Name Policy Number Policy Byers Covered Member ID Byers Member ID Guarantor Name 09/17/2022 1 [place] Fuchs Gael [id number] Yogi Mayo 09/17/2022 1 [place] [employer] Yogi Mayo [id number] Yogi Mayo 12/31/2022 1 [place] [facility]ogi Shila Mayo [id number] Yogi Mayo 12/31/2022 1 [place] [employer] Yogi Mayo [id number] Yogi Mayo 06/04/2023 1 [facility] CARE ALLIANCE - DOS ON OR AFTER 2022 - MEDIC[place]AGE [place]ANT[place] - PPO) Yogi Mayo [id number] Yogi Mayo 07/01/2023 1 [facility] CARE [employer] - DOS ON OR AFTER 2022 - [place] - [place]) Yogi Mayo [id number] Yogi Mayo 10/28/2023 1 [facility] ALLIANCE - DOS ON OR AFTER 2022 - [place]ANTAGE - PPO) Yogi Mayo [id number] Yogi Mayo Notes Date Note Type Note Provider Name a ky Address Organization Details Recorded Time 09/17/2022 text/html medication check HLD: the bw was wnl obesity: discussed dietary changes and activity level vertigo: mild episode last weekdoing wellno prolonged issues his A1c is 6.9% which is excellenthis cholesterol looked excellent as well BP elevated in office but that tends to be normal for him; recheck is normal LISA OLIVEIRA [address] [place] [address], [phone], [facility] 09/17/2022 10:50:51 12/31/2022 text/html f/u low back charley n and med check low back painsaw , no changes in the XRgiven medication from finally sees PT tomorrowwill give tramadol PRN for sleep and so he can perform PT and sleep LISA OLIVEIRA [address] [place], [address], [facility] 12/31/2022 10:44:08 06/04/2023 text/html F/U Diabetes the patient reports he is having some mucus in the morning, told to adjust his CPAP moisture settings will see if that works A1c is stable, 7.2%continue on medications BMI is still elevated which pt is aware will set up standing orders for patient no questions, no changes today LISA OLIVEIRA [address] [place], [address], [facility] 06/04/2023 10:29:53 07/01/2023 text/html Hospital The patient is participating in this appointment via telemedicine communication with a phone call/video calling service ([employer])The patient consents to use of these platforms [...] [facility] develops sob or fever LISA OLIVEIRA [address] [place], [address], [facility] 07/01/2023 15:20:05 10/28/2023 [...] swelling, orthopnea, palpitations COPD: stable LISA OLIVEIRA [address] [place] [address], [phone], [facility] 10/28/2023 10:54:07
== END ==
LOC: HO.CARD 09:32
PROVIDERS: PCP Physician Assistant; Visit Provider Nurse Practitioner Family
DX: I25.10 Atherosclerotic heart disease of native coronary artery without angina pectoris (principal); I10 Essential (primary) hypertension
CPT/HCPCS: 93306; Q9957

== ENCOUNTER → 2024-03-25 09:36 | Outpatient (BNV) | payer MEDICARE, SELFPAY | PROVIDERS: PCP Physician Assistant; Visit Provider Internal Medicine Cardiovascular Disease | DX: I35.0 Nonrheumatic aortic (valve) stenosis (principal); I35.8 Other nonrheumatic aortic valve disorders; I34.81 Nonrheumatic mitral (valve) annulus calcification; I36.1 Nonrheumatic tricuspid (valve) insufficiency | CPT/HCPCS: 93306 ==

== ENCOUNTER 2024-04-15 07:44 | Outpatient (REF) | payer MEDICARE, SELFPAY ==
--- OUTSIDE RECORDS SUMMARY | 2024-04-15 07:48 | XMS_ITS | Data Portability ---
Author Organization [facility] Address [address] [place] [address] Assessment Encounter Date Assessment Date Assessment LastModified [...] HbA1c (hemoglobi n A1c), blood 2022 023 [facility], [address] [place] [address], [address], 3 10:55:15 CBC w/ auto diff 2022 023 [facility], [address] [place] [address], [address], 10:55:15 lipid panel, blood 2022 023 [facility], [address] [place] [address], [address], 10:55:15 CMP, serum or plasma 2022 023 [facility], [address] [place] [address], [address], 3 10:55:15 CMP, serum or plasma 2022 023 [facility], [address] [place] [address], [address], 3 11:24:04 lipid panel, blood 2022 023 [facility], [address] [place] [address], [address], 10:27:58 hemoglobin A1c, QN, blood 2022 023 [facility], [address] [place] [address], [address], 3 11:24:04 microalbum in, urine 2022 023 [facility], [address] [place] [address], [address], 3 10:27:58 CBC w/ auto diff 2022 023 [facility], [address] [place] [address], [address], 3 10:27:58 CMP, serum or plasma 2022 024 [facility], [address] [place] [address], [address], 3 11:24:04 hemoglobin A1c, QN, blood 2022 024 [facility], [address] [place] [address], [address], 3 11:24:04 CMP, serum or plasma 2023 024 [facility], [address] [place] [address], [address], 4 10:30:12 lipid panel, blood 2023 024 [facility], [address] [place] [address], [address], 4 10:30:12 hemoglobin A1c, QN, blood 2023 024 [facility], [address] [place] [address], [address], 4 10:30:12 CBC w/ auto diff 2023 024 [facility], [address] [place] [address], [address], 4 11:42:26 CBC w/ auto diff 2023 024 [facility], [address] [place] [address], [address], 4 11:42:26 CMP, serum or plasma 2023 024 [facility], [address] [facility], [place], [address], 4 10:54:08 lipid panel, blood 2023 024 [facility], [address] [facility], [place], [address], 4 10:54:08 hemoglobin A1c, QN, blood 2023 024 [facility], [address] [facility], [place], [address], 4 10:54:08 CBC w/ auto diff 2023 024 [facility], [address] [place] [address], [address], 4 10:54:08 Referral None recorded. Procedures None recorded. Surgeries None recorded. Imaging None recorded. Medication Orders tramadol 50 mg tablet [email or web address] [facility][id number], [address] [place], [address], 3 10:44:04 Lantus Solostar U-100 Insulin 100 unit/mL (3 mL) subcutaneo us pen 2023 024 [facility]acy #[id number], [address] [place], [address], 4 10:23:29 albuterol sulfate HFA 90 mcg/actuat ion aerosol inhaler 2023 024 [facility] #[id number], [address] [place], [address], 4 10:26:37 prednisone 10 mg tablet 2023 024 [facility] #[id number], [address] [place], [address], 4 15:17:04 amoxicilli n 875 mg-potassi um clavulanat e 125 mg tablet 2023 024 [facility] #[id number], [address] [place], [address], 4 10:45:15 Patient TargetsNo targets recorded. Patient [...] (PROC ) No observ ation record ed. [facility] (Medical Records) [address] [place] [address], [address], 02/27/2024 19:24:57 Result Notes None recorded. Problems Name Problem SNOMED Code Status Onset Date Resolution Date Notes Provider Name and Address Organization Details Recorded Time Diabetes mellitus 34898396 Active 2017 Not Available [facility] 3 10:06:37 Obesity 850513603 Active 2017 Not Available [facility] 3 10:06:37 Chronic obstructi ve pulmonary disease 58089314 Active 2017 Not Available [facility] 3 10:06:37 Vertigo 279622296 Active 2017 Not Available [facility] 3 10:06:37 Essential hypertens ion 57516994 Active 2017 Not Available [facility] 3 10:06:37 Hyperchol esterolem ia 48186592 Active 2017 Not Available [facility] 3 10:06:37 Vascular disorder 91672906 Active 2017 Not Available [facility] 3 10:06:37 Body mass index 30+ - obesity 478762981 Active 2018 Not Available [facility] 3 10:06:37 Type 2 diabetes mellitus 32751065 Active 2020 Not Available [facility] 3 10:06:37 Tobacco dependenc e syndrome 67578041 Active 2021 Not Available [facility] 3 10:06:37 Diabetic periphera l neuropath y 423748744 Active 2022 Not Available [facility] 3 10:06:37 Foot callus 674656412 Active 2022 Not Available [facility] 3 10:06:37 Low back pain 782180559 Active 2022 LISA OLIVEIRA [address] [place] [address], [address], [facility] 3 10:22:49 Foot ulcer due to type 2 diabetes mellitus 357774174109 0 Active 2022 LISA OLIVEIRA [address] [place] [address], [address], [facility] 3 15:27:14 Skin ulcer 11274224 Active 2023 LISA OLIVEIRA [address] [place] [address], [address], [facility] 4 10:24:36 Uvulitis 408139542 Active 2023 LISA OLIVEIRA [address] [place] [address], [address], [facility] 4 15:14:36 Problem Notes None recorded. Procedures Surgical History Date Name Laterality Status Provider Name and Address Organization Details Recorded Time 2 Colonoscopy completed Michelle Cook [facility] 04/07/2018 08:21:02 Imaging Results Imaging Date Name Status LastModified by Organization Details LastModified Time 06/22/2023 US, echocardiogram completed [email or web address] Inform ation not available 06/25/2023 08:49:04 02/21/2024 myocardial perfusion study w/ ejection fraction (PROC) completed [facility] (Medical Records) [address] [facility], [place], [address], 02/27/2024 19:24:57 Procedure Notes None recorded. Medical [...] No t Available [employer] 14 Day [employer] CHECK GLUCOSE LEVEL WITH READER 3 TIMES [...] Updated DateTime 3 166.37 cm 44.4 kg/m2 035319. 53 g 54 /min 96 % 96 % 142 mm[Hg] 76 mm[Hg] Angie Pillai [facility] 3 10:29:18 Date Recorded Body height Body mass index (BMI) Body weight Heart rate Oxygen saturation Oxygen saturation in Arterial blood by Pulse oximetry Systolic blood pressure Diastolic blood pressure Provider Name and Address Organization Details Last Updated DateTime 3 166.37 cm 44.9 kg/m2 703014. 31 g 56 /min 96 % 96 % 142 mm[Hg] 68 mm[Hg] Bridget Gastelum [facility] 3 10:15:59 Date Recorded Body height Body mass index (BMI) Body weight Heart rate Oxygen saturation Oxygen saturation in Arterial blood by Pulse oximetry Systolic blood pressure Diastolic blood pressure Provider Name and Address Organization Details Last Updated DateTime 4 166.37 cm 44.9 kg/m2 361826. 31 g 60 /min 95 % 95 % 120 mm[Hg] 68 mm[Hg] Angie Pillai [facility] 4 10:03:11 Date Recorded Body height Body mass index (BMI) Body weight Heart rate Oxygen saturation Oxygen saturation in Arterial blood by Pulse oximetry Systolic blood pressure Diastolic blood pressure Provider Name and Address Organization Details Last Updated DateTime 4 166.37 cm 44 kg/m2 697231. 19 g 72 /min 95 % 95 % 130 mm[Hg] 80 mm[Hg] Fariha Pena [facility] 4 10:33:25 Social History Question Answer Notes LastModified by Organizat ion Details LastModified Time Tobacco Smoking Status Former Smoker Not Available [facility] 01/12/2020 03:36:23 What Was The Date Of Your Most Recent Tobacco Screening? 10/28/2023 [email or web address] Information not available 10/28/2023 Do You Or Have You Ever Used Any Other Forms Of Tobacco Or Nicotine? No [email or web address] Information not available 06/04/2023 Sex: Unknown Functional Status None recorded. Mental Status None recorded. Family History Nothing Reported. Medical History No medical history recorded. Immunizations Vaccine Type Date Status Note Provider Nam e and Address Organization Details Recorded Time COVID-19, mRNA, LNP-S, PF, 100 mcg/0.5mL dose or 50 mcg/0.25mL dose 1 completed Rohini josé [facility] 09/07/2020 12:02:47 Td (adult) 3 completed Rohini josé [facility] 09/07/2020 12:03:07 Influenza, split virus, quadrivalent, preservative 1 completed Henok Sierra DO [address] [place] [address], [address], [facility] 11/26/2020 13:24:41 Influenza, split virus, quadrivalent, preservative 8 [facility] 08:56:48 COVID-19, mRNA, LNP-S, PF, 100 mcg/0.5mL dose or 50 mcg/0.25mL dose 1 [facility] 03/08/2021 11:03:32 Pneumococcal Conjugate, unspecified formulation 7 completed Chasity Galvan NP, S [address] [place] [address], [address], [facility] 12/30/2017 09:21:11 Pneumococcal Conjugate, unspecified formulation 9 completed Chasity Galvan NP, S [address] [place] [address], [address], [facility] 12/30/2017 09:21:37 COVID-19, mRNA, LNP-S, PF, 100 mcg/0.5mL dose or 50 mcg/0.25mL dose 2 completed Marci josé, [facility] 01/17/2022 13:28:00 Influenza, split virus, quadrivalent, preservative 2 completed Marci josé, [facility] 01/17/2022 13:28:09 influenza, unspecified formulation 3 completed Bertram Sierra [facility], [facility] 11/12/2022 13:57:37 influenza, unspecified formulation 4 completed Fariha Pena [facility], [facility] 12/06/2023 11:28:08 SARS-COV-2 (COVID-19) vaccine, UNSPECIFIED 4 completed Fariha Pena [facility] 12/06/2023 11:28:15 Influenza, split virus, quadrivalent, preservative 0 completed Henok Sierra, DO [address] [place] [address], [address], [facility] 01/01/2020 08:30:52 COVID-19, mRNA, LNP-S, PF, 100 mcg/0.5mL dose or 50 mcg/0.25mL dose 1 completed Reina Monroy [facility] 08/31/2020 08:47:56 Past Encounters Encounter ID Performer Location Encounter Start Date Encounter Closed Date Diagnosis/Indication Diagnosis SNOMED-CT Code Diagnosis ICD10 Code Diagnosis Note [id number] Chasity Galvan NP, [address],[place] [address] 11/04/2017 14:09:15 11/04/2017 16:06:59 Chronic obstructive pulmonary disease 54570397 J44.9 Hypercholesterolemia 136 24014 E78.00 Essential hypertension 08764677 I10 Diabetes mellitus 096327 09 E11.9 Pain in left knee 646193 4915 44678 M25.562 [id number] Chasity Galvan NP, S [address],[place] [address] 12/30/2017 08:58:32 12/30/2017 12:33:37 Benign prostatic hyperplasia with outflow obstruction 128789782 N40.1 was not taking- restart Hypercholesterolemia 136 15654 E78.00 HDL 33, encourage activity Chronic ob structive pulmonary disease 58583123 J44.9 stable- no recent exacerbati on Vascular disorder 424658 09 I99.9 up to date cardiologi st and vascular Essential hypertension 33739151 I10 stable Diabetes mellitus 193835 09 E11.9 A1C 7.2-follow Active or passive immunization 613655984 Z23 had flu vaccine, up to date pneumonia vaccines [id number] Chasity Galvan, ANIKA, S [facility] [address] [facility],[place] [address] 04/07/2018 13:30:45 04/07/2018 15:20:50 Diabetes mellitus 13800800 E11.9 A1C 7.2-follow Chronic ob structive pulmonary disease 85199393 J44.9 stable- no recent exacerbati on Cellulitis 167141493 L03 .90 if worse or no better-com e back in Hypercholesterolemia 136 18888 E78.00 HDL 33, encourage activity Essential hypertension 75291382 I10 stable Vascular disorder 152601 09 I99.9 up to date cardiologi st and vascular [id number] June CHRISTIANA [facility] [address] [facility],[place] [address] 08/25/2018 13:52:00 08/25/2018 14:40:43 Diabetes mellitus 89114216 E11.9 a1c 7.6 (up from 7.2) has lost weight though through keto diet recommende d to monitor blood sugar closely on this diet as he may go low with carb restrictio n and insulin continue current regimen continue weight loss Chronic ob structive pulmonary disease 72398576 J44.9 stable- no recent exacerbati on Hypercholesterolemia 136 64097 E78.00 HDL 36, up from 33 LDL well within goal range Essential hypertension 93462020 I10 stable Vascular disorder 416693 09 I99.9 s/p carotid endarterec roz stent in heart up to date cardiologi st and vascular Body mass index 30+ - obesity 229419060 Z68.41 losing weight Active or passive immunization 329569223 Z23 Achilles bursitis 848419 002 M76.62 nsaids + ortho referral Benign pro static hyperplasia 719829688 N40.0 still waking up at least 5-6 times per night, which is actually improved from previously [id number] June Carrol [facility] [address] [facility], [place] [address] 01/12/2019 10:56:24 01/12/2019 11:58:39 Diabetes mellitus 07787113 E11.9 a1c is 7.2, down from 7.6 previously continue current regimen continue weight loss Chronic ob structive pulmonary disease 04732361 J44.9 stable- still quite a bit of exertional sob no recent exacerbati ons will trial breo continue incruse and ventolin as needed has quit smoking lives with a smoker Hypercholesterolemia 136 51467 E78.00 stable Essential hypertension 57699103 I10 stable Vascular disorder 329817 09 I99.9 s/p carotid endarterec roz stent in heart up to date cardiologi st and vascular Body mass index 30+ - obesity 731490086 Z68.41 losing weight Active or passive immunization 181418585 Z23 Achilles bursitis 539337 002 M76.62 saw ortho, will hold off on further therapy may consider second op in not improvemen t by march Benign pro static hyperplasia 291038117 N40.0 still waking up at least 5-6 times per night, despite the flomax Hemorrhoids 10152009 K64 .9 if bleeding persists after 2-3 weeks, plan is to see gi 2/2 constipati on 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 3616009564 62997 E08.42 continue diabetic shoe wear Foot callus 774937354 L9 8.499 continue diabetic shoe wear [id number] June Carrol [facility] [address] [facility],[place] [address] 06/01/2019 09:47:09 06/01/2019 10:27:36 Chronic obstructive pulmonary disease 67005445 J44.9 continue breo+ incruse and very rare need for rescue inhaler has quit smoking lives with a smoker Diabetes mellitus 399451 09 E11.9 a1c is up to 7.9 would like to work on diet Hypercholesterolemia 136 59293 E78.00 stable Essential hypertension 10263343 I10 mildly elevated Vascular disorder 418827 09 I99.9 s/p carotid endarterec roz stent in heart up to date cardiologi st and vascular Body mass index 30+ - obesity 936059232 Z68.41 plan to work on diet for better dm control and weight loss Achilles bursitis 996603 002 M76.62 saw ortho, will hold off on further therapy may consider second op in not improvemen t by march Benign pro static hyperplasia 021712932 N40.0 seeing urology Hemorrhoids 69315777 K64 .9 still hvaing constipati on no more blood in the stool would like to see GI 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 0812292679 39350 E08.42 continue diabetic shoe wear Foot callus 774437650 L9 8.499 continue diabetic shoe wear Type 2 pallavi betes mellitus 19401353 E11.9 [id number] LISA OLIVEIRA Internal Medicine [address] [facility], ite [employer] [facility] [place] [address] 09/01/2019 09:06:20 09/01/2019 09:43:21 Hypercholesterolemia 08004928 E78.00 didn't get it done will give him paperwork again Diabetes mellitus 603976 09 E11.9 a1c is down Chronic ob structive pulmonary disease 09223125 J44.9 stable Diabetic p eripheral neuropathy 409164308 E11.40 would like to start gabapentin for neuropathy for his feet [id number] LISA OLIVEIRA Internal [facility] [address] [facility],[place] [employer] [place] [address] 12/28/2019 08:59:26 12/28/2019 09:41:52 Chronic obstructive pulmonary disease 20224660 J44.9 stable Essential hypertension 03074251 I10 fine today will continue to monitor Diabetes mellitus 134354 09 E11.9 a1c needs recheck [id number] LISA OLIVEIRA Internal [facility] [address] [facility],[employer] [employer] [address] 03/15/2020 08:31:37 03/15/2020 10:41:45 Chronic obstructive pulmonary disease 18669450 J44.9 will treat his symptoms in the mean time, he is out of his inhalers so will supply him with them for COPD control Acute exac erbation of chronic obstructive pulmonary disease 873217161 J44.1 will treat with pred taper and abx to mitigate his symptoms until he can be tested will fu with results will call if symptoms worsen Dyspnea 881596467 R06.00 will see if taper works with increasing his ability to breath, to breath more easily [id number] LISA OLIVEIRA [facility] [address] [facility],[place] [address] 05/16/2020 09:36:31 05/16/2020 10:20:26 Chronic obstructive pulmonary disease 76633446 J44.9 stable, no interventi on needed Type 2 pallavi betes mellitus 96885684 E11.9 stable, no interventi on Essential hypertension 66548229 I10 will recheck at next appt Dyspnea 259928774 R06.00 pred taper worked excellent while patient had COVID, will check lungs to see if any longer term damage still having very mild sob [id number] LISA OLIVEIRA [facility] [address] [facility],[place] [employer] [place] [address] 09/26/2020 14:13:27 09/26/2020 16:23:46 Type 2 diabetes mellitus 84228368 E11.9 stable, no interventi on Essential hypertension 06272908 I10 will recheck at next appt Chronic ob structive pulmonary disease 67270268 J44.9 stable, no interventi on needed Vertigo 075022525 R42 will fu with PT which he was given referral from hospitalwi ll give him the exercise to try at home by himself [id number] LISA OLIVEIRA [facility] [address] [facility],[place] [address] 01/30/2021 09:56:26 01/30/2021 11:18:15 Hypercholesterolemia 55745939 E78.2 didn't get it done will give him paperwork again Chronic ob structive pulmonary disease 61939343 J41.0 stable, no interventi on needed Type 2 pallavi betes mellitus 63723171 E11.9 stable, no interventi on given free style free sample Essential hypertension 65763810 I10 will recheck at next appt Diabetic p eripheral neuropathy 712921401 E11.40 having issues with his insuance with his metformin Body mass index 30+ - obesity 697350933 Z68.41 discussed diet and exercise Foot callus 252927073 L9 8.499 stable Neuropathy 236445411 G62 .89 will increase the gabapentin to 300 mg BID [id number] LISA OLIVEIRA [facility] [address] [facility],[place] [address] 04/12/2021 09:14:21 04/17/2021 10:51:46 Diabetic peripheral neuropathy 206658621 E11.40 having issues with his insuance with his metformin Body mass index 30+ - obesity 991208675 Z68.41 discussed diet and exercise Chronic ob structive pulmonary disease 41662540 J41.0 stable, no interventi on needed Foot callus 478169561 L9 8.499 stable Type 2 pallavi betes mellitus 74388227 E11.9 stable, no interventi ongiven free style free sample Strain of supraspinatus muscle AND/OR tendon 80676515 S46.012A will start on medication [id number] LISA OLIVEIRA [facility] [address] [facility],[place] [employer] Systems[facility] [address] 05/15/2021 11:42:16 05/16/2021 08:18:27 Seborrheic keratosis 643872649 L82.1 will fu with derm Type 2 pallavi betes mellitus 42370240 E11.9 stable, no interventi ongiven free style free sample Essential hypertension 51320675 I10 stable Vertigo 873332777 R42 resolved [id number] LISA OLIVEIRA [facility] [address] [facility],[place] [address] 06/19/2021 13:28:12 06/20/2021 14:55:55 Type 2 diabetes mellitus 68454456 E11.9 stable, no interventi ongiven free style free sample Essential hypertension 32691429 I10 stable Vertigo 037312338 R42 PT tomorrow Tobacco de pendence syndrome 53853242 F17.290 discussed Active or passive immunization 347914241 Z23 advised [id number] LISA OLIVEIRA [facility] [address] [facility],[place] [address] 09/25/2021 15:33:57 09/25/2021 15:58:50 Chronic obstructive pulmonary disease 53115352 J41.0 stable, no interventi on needed Essential hypertension 39175804 I10 stable Type 2 pallavi betes mellitus 63980383 E11.9 stable, no interventi ongiven free style free sample Body mass index 30+ - obesity 447471257 Z68.41 discussed diet and exercise [id number] LISA OLIVEIRA [facility] [address] [facility],[place] [address] 01/08/2022 14:32:18 01/09/2022 08:33:50 Diabetes mellitus 37580968 E11.9 a1c needs recheck Essential hypertension 08464586 I10 stable Hypercholesterolemia 136 47144 E78.2 stable [id number] LISA OLIVEIRA [facility] [address] [facility],[place] [address] 04/10/2022 08:15:36 04/13/2022 08:44:26 Chronic obstructive pulmonary disease 03241190 J41.0 stable, no interventi on needed Essential hypertension 45671118 I10 stable Type 2 pallavi betes mellitus 97531970 E11.9 needs to work on diet Hypercholesterolemia 136 69247 E78.2 stable [id number] LISA OLIVEIRA [facility] [address] [facility],[place] [address] 07/09/2022 09:47:19 07/09/2022 17:15:24 Hypercholesterolemia 21558287 E78.2 stable Chronic ob structive pulmonary disease 59339464 J41.0 stable, no interventi on needed Essential hypertension 96555959 I10 stable Diabetes mellitus 586808 09 E11.9 a1c needs recheck Obesity 029908114 E66.01 stable Type 2 pallavi betes mellitus 67409582 E11.9 needs to work on diet Diabetic p eripheral neuropathy 542243404 E11.41 having issues with his insuance with his metformin Body mass index 30+ - obesity 326731364 Z68.41 discussed diet and exercise Foot callus 248972546 L9 8.499 stable [id number] LISA OLIVEIRA [facility] [address] [facility],[place] [address] 09/17/2022 10:11:43 09/18/2022 09:09:14 Hypercholesterolemia 77636389 E78.2 stable Obesity 041132126 E66.01 stable Type 2 pallavi betes mellitus 05953812 E11.9 A1c is 6.9% Essential hypertension 94102771 I10 stablebett er with recheck [id number] LISA OLIVEIRA [facility] [address] [facility] [place] [address] 12/31/2022 10:03:05 12/31/2022 12:33:38 Low back pain 047852815 M54.59 will start on tramadol Essential hypertension 51399861 I10 stablebett er with recheck Hypercholesterolemia 136 45585 E78.2 stablerech rohit lab work Type 2 pallavi betes mellitus 85999430 E11.9 A1c is 6.9% [id number] LISA OLIVEIRA Internal [facility] [address] [facility],[place] [address] 06/04/2023 09:52:08 06/04/2023 10:30:41 Type 2 diabetes mellitus 22068221 E11.40 E11.9 continue on medication as prescribed Body mass index 30+ - obesity 248029643 Z68.41 discussed diet and exercise Chronic ob structive pulmonary disease 41492054 J41.0 stable, no interventi on needed Skin ulcer 10006226 L98. 491 resolved [id number] LISA OLIVEIRA [facility] [address] [facility],[place] [address] 07/01/2023 09:10:33 07/02/2023 08:11:09 Uvulitis 100215718 K12.2 agreed to abx and steroid taper after the fact [id number] LISA OLIVEIRA [facility] [address] [facility],[place] [address] 10/28/2023 10:28:56 10/28/2023 11:17:03 Foot ulcer due to type 2 diabetes mellitus 9015797158 100 E11.621 stable Type 2 pallavi betes mellitus 86322495 E11.40 E11.9 stablesees endo Depression screening 171 159218 Z13.31 Diabetes mellitus 180643 09 E11.9 a1c needs recheck Diabetic p eripheral neuropathy 418249454 E11.41 having issues with his insuance with his metformin Chronic ob structive pulmonary disease 13404103 J41.0 stable, no interventi on needed Essential hypertension 52872578 I10 stablebett er with recheck Health Concerns Section Related Observation LastModified by Organization Detai ls LastModified Time None Recorded Concern Status LastModified by Organization Details LastModified Time None Recorded Advance Directives Directive None Recorded Payers Encounter Date Sequence Insurance Name Policy Number Policy Byers Covered Member ID Byers Member ID Guarantor Name 09/17/2022 1 [place] [employer] Yogi Fuchs Gael [id number] Yogi Mayo 09/17/2022 1 [place] B[place] [employer] Yogi Mayo [id number] Yogi Mayo 12/31/2022 1 [place] [employer] Yogi Shila Mayo [id number] Yogi Mayo 12/31/2022 1 [place] [employer] Yogi Mayo [id number] Yogi Mayo 06/04/2023 1 [facility] - DOS ON OR AFTER 2022 - [place]IC[place]AGE [place]MED[place]/AD VANTAGE - PPO) Yogi Mayo [id number] Yogi Mayo 07/01/2023 1 [facility] - DOS ON OR AFTER 2022 - [place]ANTAGE - PPO) Yogi Mayo [id number] Yogi Mayo 10/28/2023 1 [facility] - DOS ON OR AFTER 2022 - [place]/AD [place]ANTAGE - PPO) Yogi Mayo [id number] Yogi Mayo Notes Date Note Type Note Provider Name a il Address Organization Details Recorded Time 09/17/2022 text/html medication check HLD: the bw was wnl obesity: discussed dietary changes and activity level vertigo: mild episode last weekdoing wellno prolonged issues his A1c is 6.9% which is excellenthis cholesterol looked excellent as well BP elevated in office but that tends to be normal for him; recheck is normal LISA OLIVEIRA [address] [place] [address], [phone], [facility] 09/17/2022 10:50:51 12/31/2022 text/html f/u low back charley n and med check low back painsaw , no changes in the XRgiven medication from finally sees PT tomorrowwill give tramadol PRN for sleep and so he can perform PT and sleep LISA OLIVEIRA [address] [place], [address], [facility] 12/31/2022 10:44:08 06/04/2023 text/html F/U Diabetes the patient reports he is having some mucus in the morning, told to adjust his CPAP moisture settings will see if that works A1c is stable, 7.2%continue on medications BMI is still elevated which pt is aware will set up standing orders for patient no questions, no changes today LISA OLIVEIRA [address] [place], [address], [facility] 06/04/2023 10:29:53 07/01/2023 text/html Hospital The patient is participating in this appointment via telemedicine communication with a phone call/video calling service ([email or web address])The patient consents to use of these platforms [...] [facility] if [facility] develops sob or fever LISA OLIVEIRA [address] [place], [address], [facility] 07/01/2023 15:20:05 10/28/2023 [...] swelling, orthopnea, palpitations COPD: stable LISA OLIVEIRA [address] [place] [address], [phone], [facility] 10/28/2023 10:54:07
--- OUTSIDE RECORDS SUMMARY | 2024-04-15 07:48 | XMS_ITS | Continuity of Care Document ---
Author Organization [facility] Address [address] [place] [address]- Care Team Providers Care Soccer Commentator Name Role Phone Brandy Lindsay Primary Care Physician Encounter [facility] Date(s): 03/13/24 - 04/12/24 [facility] [address] [place] [address]- Encounter Type: Triage Allergies, Adverse Reactions, Alerts Substance Criticality Severity [...] Refills, Maintenance, 09/02/13 5:14:43 AM EDT, ECTablet, [facility]/pharmacy #[id number] Start Date: 09/02/13 Status: Ordered Quantity: 30.0 Unit: tablet Repeat number: 12 atorvastatin 80 mg oral tablet 1 tablet = 80 mg, By Mouth, Daily at bedtime, # 30 tablet, 11 Refills, Maintenance, 09/02/13 5:16:10AM EDT, Tablet, [facility]/pharmacy #[id number] Start Date: 09/02/13 Status: Ordered Quantity: [...] Ordered Repeat number: 1 Freestyle Sumi 3 [place]worth Freestyle Sumi 3 [place], See Instructions, # 1 each, Refills 0, [...] 3 Refills, Maintenance, 09/13/23 1:47:00 PM EDT, [facility]/pharmacy #[id number], Partial fill upon patient request if [...] Refills, Maintenance, 09/13/23 1:46:00 PM EDT, Injection, [facility]/pharmacy #[id number], Partial fill upon patient request if [...] 11 Refills, Maintenance, 11/13/23 8:02:00 AM EDT, [facility] STORE [id number], 173, cm, 09/13/23 13:33:00 EDT, Height, 124.5, [...] Active Treatment-emergent central sleep apnea Confirmed Active Social History Social History Type Response Smoking Status Former smoker entered on: 02/17/16 Sex Sex Representation Male (finding) Patient Care team information Care Team Personnel Name: Farida Quiros RN Position: [facility] RN Member Role: Primary Care Nurse Name: Luciano Fernandez RN Position: [facility] RN Member Role: Primary Care Nurse Name: Beatrice Tello NP Position: [facility] PCO Associate Professional Member Role: Primary Care Nurse Address: [address] [place], [place] [address] [address]- [place] Tele[employer]: Name: Brandy Lindsay Position: [facility] Outreach Member Role: PCP Address: [address] [facility] [address] [facility] [place] [address]- [place] Tele[employer]: Name: Yi Ponce LPN Position: [facility] RN Member Role: Primary Care Nurse Care Team Related Persons Name: EMILY FORTUNE Insurance Providers Guarantor name: DERIAN Health Plan Information #: 1 Payer: [employer] MEDIC[employer] ADV PPO Member Number: NA Policy Number: NA Group Number: NA
--- OUTSIDE RECORDS SUMMARY | 2024-04-15 07:48 | XMS_ITS | Clinical Summary ---
Author Organization [address] [facility] Address [address] [place] [address] Phone Care Team Providers Care Social Sciences Chair Name Role Phone Physician, Pcp Unknown Primary Care Provider Kimberlee vailable Allergies No known active allergies Medications Medication Sig Dispensed Refills Start Date End Date Status acetaminophen (TYLENOL 8 HOUR) 650 mg 8 hr tablet Take 1 Tablet by mouth every 8 hours as needed. Active albuterol-budesonide (Airsupra) 90-80 mcg/actuation HFA aerosol inhaler Inhale into the lungs. Active aspirin 81 mg chewable tablet Take 1 Tablet by mouth daily. Active atorvastatin (LIPITOR) 80 mg tablet Take 1 Tablet by mouth daily. Active clotrimazole (LOTRIMIN) 1 % cream Apply to skin and toenails daily for 12 weeks 2023 Active cyclobenzaprine (FLEXERIL) 10 mg tablet Take 1 Tablet by mouth 3 times daily as needed. Active diclofenac (VOLTAREN) 1 % topical gel Apply topically. Act james ezetimibe-rosuvastati n (Roszet) 10-10 mg tablet Take by mouth. Active fluticasone furoate-vilanteroL (BREO ELLIPTA) 100-25 mcg/dose inhaler Inhale into the lungs. Active gabapentin (NEURONTIN) 300 mg capsule Take 1 Capsule by mouth 2 times daily. Active glipiZIDE (GLUCOTROL) 5 mg tablet Take 1 Tablet by mouth 2 times daily (before meals). Active insulin glargine (LANTUS SoloStar) 100 unit/mL (3 mL) injection pen Inject into the skin. Active pen needle, diabetic (Insupen Pen Needle) 32 gauge x 5/32 needle by Does not apply route. Active losartan (COZAAR) 50 mg tablet Take 1 Tablet by mouth daily. Active meclizine (ANTIVERT) 12.5 mg tablet Take by mouth. Active metFORMIN (GLUCOPHAGE) 1,000 mg tablet Take 1 Tablet by mouth 2 times daily (with meals). Active metoprolol tartrate (LOPRESSOR) 50 mg tablet Take 1 tablet (50 mg total) by mouth 2 (two) times a day. Active naproxen (NAPROSYN) 500 mg tablet Take 1 Tablet by mouth 2 times daily (with meals). Active SITagliptin phosphate (Januvia) 100 mg tablet Take 1 Tablet by mouth daily. Active tamsulosin (FLOMAX) 0.4 mg 24 hr capsule Take 1 Capsule by mouth daily. Take 30 mins after same meal every day. Active traMADoL (ULTRAM) 50 mg tablet Take 1 Tablet by mouth every 6 hours as needed. Active Active Problems Problem Noted Date Diagnosed Date Diabetic neuropathy 04/12/2023 Essential hypertension 04/12/2023 Foot callus 04/12/2023 Foot ulcer due to secondary DM 04/12/2023 Hypercholesterolemia 04/12/2023 Low back pain 04/12/2023 Lung disease 04/12/2023 Obesity 04/12/2023 Tobacco dependence 04/12/2023 Type 2 diabetes, controlled, with cellulitis of foot 04/12/2023 Vascular disorder 04/12/2023 Vertigo 04/12/2023 Encounters Date Type Department Care Team Description 01/14/2024 10:30 AM EST Office Visit Orthopedic Surgery - [address] [phone] Jorge Palomo, DPM Primary osteoarthritis of both feet (Primary Dx); Dermatophytosis of nail from Last 3 Months Medical History Medical History Date Comments Diabetic neuropathy (CMS/HCC) 04/12/2023 DX :Diabetic neuropathy (HCC) Hypercholesterolemia 04/12/2023 DX:Hypercho lesterolemia Obesity 04/12/2023 DX:Obesity Body mass index 30.0-30.9, adult 04/12/2023 DX:Body mass index 30.0-30.9, adult Tobacco dependence 04/12/2023 DX:Tobacco de pendence Essential hypertension 04/12/2023 DX:Essent ial hypertension Vascular disorder 04/12/2023 DX:Vascular di sorder Lung disease 04/12/2023 DX:Lung disease Foot callus 04/12/2023 DX:Foot callus Low back pain 04/12/2023 DX:Low back pain Vertigo 04/12/2023 DX:Vertigo Foot ulcer due to secondary DM (CMS/HCC) DX:Foot ulcer due to secondary DM (HCC) Social History Tobacco Use Types Packs/Day Years Used Date Smoking Tobacco: Never Assessed Sex and Gender Information Value Date Recorded Sex Assigned at Not on file Gender Identity Not on file Sexual Orientation Not on file Job Start Date Occupation Industry Not on file Not on file Not on file Obstetrics History Last Filed Vital Signs Vital Sign Reading Time Taken Comments Blood Pressure - - Pulse - - Temperature - - Respiratory Rate - - Oxygen Saturation - - Inhaled Oxygen Concentration - - Weight 122 kg (270 lb) 01/14/2024 10:38 AM EST Height 172.7 cm (5' 7.99 ) 01/14/2024 10:[address] Body Mass Index 41.06 01/14/2024 10:38 AM EST Plan of Treatment Upcoming Encounters Date Type Department Care Team (Late st Contact Info) Description 05/13/2024 10:30 AM EST Office Visit Orthopedic Surgery - [place] [address] [phone] Jorge Palomo, DPM [address] [address] Health Maintenance Due Date Last Done Comments Diabetes: Annual GFR (Glomerular Filtration Rate) 1956 Pneumococcal Vaccine: 65+ Years (1 of 2 - PCV) 1962 Diabetes: Annual Foot Exam 1966 Diabetes: Annual Retina Eye Exam 1966 Hepatitis A Vaccines (1 of 2 - Risk 2-dose series) 07/16/1975 Zoster Vaccines (1 of 2) 2006 RSV Immunization Patients 60+ Years Old (1 - Risk 60-74 years 1-dose series) 2016 DTaP,Tdap,and Td Vaccines (2 - Td or Tdap) 08/07/2022 08/07/2012 Abdominal Aortic Aneurysm (AAA) Screen 04/05/2023 Cholesterol Screening (Lipid Panel) 04/05/2023 Colorectal Cancer Screening: Colonoscopy 04/05/2023 Depression Screening 04/05/2023 Falls Risk Assessment 04/05/2023 Hepatitis C Screening 04/05/2023 Social Influencers of Health Screening 04/05/2023 Diabetes: Annual Urine Albumin-Creatinine Ratio (uACR) 04/24/2023 Diabetes: Blood Sugar Control Test (HGBA1C) 04/24/2023 Hypertension/CHF/CAD Annual BMP Blood Test 04/24/2023 COVID-19 Vaccine Completed 12/04/2023, 09/2021, 03/06/2021, Additional history exists Influenza Vaccine Completed 12/04/2023, , 01/15/2022, Additional history exists HIB Vaccines Aged Out No longer eligi ble based on patient's age to complete this topic HPV Vaccines Aged Out No longer eligi ble based on patient's age to complete this topic Hepatitis B Vaccines Aged Out No long er eligible based on patient's age to complete this topic IPV Vaccines Aged Out No longer eligi ble based on patient's age to complete this topic MMR Vaccines Aged Out No longer eligi ble based on patient's age to complete this topic Meningococcal ACWY Vaccine Aged Out N o longer eligible based on patient's age to complete this topic RSV Immunization Patients Under 20 months Aged Out No longer eligible based on patient's age to complete this topic Varicella Vaccines Aged Out No longer eligible based on patient's age to complete this topic Care Teams Social Sciences Chair Relationship Specialty Start Date End Date Physician, Pcp Unknown PCP - General 01/14/24
[2024-04-15 10:30] LABS: MANUAL DIFF FLAG NO
[2024-04-15 10:32] LABS: Basophils Percent Auto 0.5 % (0-2); Eosinophils Absolute Auto 0.3 X10*3/uL (0.0-0.4); Hematocrit 39.9 % (42.0-52.0); Hemoglobin 13.5 g/dl (14.0-18.0); Imm Gran Abs Auto 0.03 X10*3/uL (0.00-0.03); Imm Gran Pct Auto 0.5 % (0.0-0.4); Lymphocytes Absolute Auto 1.9 X10*3/uL (1.2-4.9); Lymphocytes Percent Auto 28.4 % (20-40); Mean Corpuscular HGB Conc 33.8 g/dl (31.0-36.0); Mean Corpuscular Hemoglobin 28.9 pg (27.0-33.0); Mean Corpuscular Volume 85.4 fL (80.0-98.0); Mean Platelet Volume 10.5 fL (9.4-12.4); Monocytes Absolute Auto 0.5 X10*3/uL (0.1-1.2); Monocytes Percent Auto 7.5 % (2-11); Neutrophils Absolute Auto 3.9 x10*3/uL (2.0-8.3); Neutrophils Percent Auto 59.1 % (45-73); Platelet Count 184 X10*3/uL (160-400); Red Blood Count 4.67 X10*6/uL (4.60-5.80); Red Cell Distribution Width 12.8 % (11.0-16.0); White Blood Count 6.5 X10*3/uL (4.8-10.8)
[2024-04-15 10:45] LABS: Estimated Average Glucose 140 mg/dL; Hemoglobin A1C 169.1105 umol/L; Hemoglobin A1c % 6.5 % (<6.0); Total Hemoglobin (HGBA1C) 3528.1226 umol/L
[2024-04-15 11:02] LABS: Alanine Aminotransferase 33 U/L (0-40); Albumin Level 4.2 g/dL (3.5-5.0); Alkaline Phosphatase 73 U/L (39-117); Anion Gap 10 (12-20); Aspartate Amino Transferase 36 U/L (5-37); Bilirubin Total 0.5 mg/dL (0.0-1.0); Blood Urea Nitrogen 17 mg/dL (9-16); Calcium 8.7 mg/dL (8.4-10.2); Carbon Dioxide 27 mmol/L (22-29); Chloride 103 mmol/L (96-108); Cholesterol 84 mg/dL (<200); Estimated Glomerular Filt Rate > 60; Glucose Random 111 mg/dL (60-115); HDL Cholesterol 30 mg/dL (>40); LDL Cholesterol Calculated 31 mg/dL (<100); Potassium 3.8 mmol/L (3.3-5.1); Sodium 136 mmol/L (135-145); Total Protein 7.1 g/dL (6.5-8.0); Triglycerides 119 mg/dL (<150)
== END 2024-04-15 07:45 | disposition home or self-care (01) ==
LOC: HO.10HDL 07:44
PROVIDERS: Visit Provider Physician Assistant
DX: E11.40 Type 2 diabetes mellitus with diabetic neuropathy, unspecified (principal)
CPT/HCPCS: 36415; 80053; 80061; 83036; 85025

== ENCOUNTER 2024-10-26 07:38 | Outpatient (REF) | payer MEDICARE, SELFPAY ==
--- OUTSIDE RECORDS SUMMARY | 2024-10-26 07:40 | XMS_ITS | Patient Health Record ---
Author Organization [facility] Address [address] [place] [address] Care Team Providers Care Earth Boring Machine Operator Name Role Phone Henok Sierra Primary Care Provider Esteban Zuniga Jr Unavailable Allergies Allergen (clinical drug ingredient) Drug/Non Drug Allergy documented on EMR Reaction Allergy Type Onset Date Status lisinopril lisinopril (uncoded) Unknown Allergy Active Reason For Referral No Information Medications Medication SIG (Take, Route, Frequency, Duration) Notes Start Date End Date Status Simvastatin 40mg Act james Ventolin HFA Active glyBURIDE 5mg Active Losartan Potassium A ctive Gemfibrozil 600mg Ac tive Atorvastatin Calcium Active Basaglar KwikPen Act james MiraLax (colon prep) 8.3 ounce ((238) grams mixed with Gatorade or Crystal Light orally begin at 5:00 p.m. the day before the procedure for 1 day 01/11/2020 Active metFORMIN HCl 1,000mg Active glipiZIDE Active Gabapentin Active Tamsulosin HCl Activ e Breo Ellipta Active Lantus Active Aspir-81 81mg Active Metoprolol Succinate 50mg Active Naproxen Active Immunizations Vaccine Route Administration Date Status Comme nts Influenza Unknown 12/23/2019 Administered Social History Alcohol Screen Question Answer Notes Did you [...] drinks (1 point) Points 3 Interpretation Negative Section Notes: Tobacco use is negative, alc ohol: uses 6 alcoholic drinks on weekends. Tobacco use is negative, alc ohol: uses 6 alcoholic drinks on weekends. Problems Problem Type SNOMED Code ICD Code Onset Dates Problem Status W/U Status Risk Notes Problem Change in bowel habit (58323712) Change in bowel habits (R19.4) Active confirmed Plan Of Treatment Future Test Test Name Order Date COLONOSCOPY 01/11/2020 Insurance Providers Payer Name Payer Address Payer Phone Subscriber Number Group Number Insured Name Patient Relationship to Insured Coverage Start Date Coverage End Date MEDICARE [place] [address] [place] [address] [id number] FITZ NORRIS Self - patient is the insured [facility] [address] [place] [address] [id number] FITZ NORRIS Self - patient is the insured Medical (General) History Medical History History ICD Code hypertension elevated cholesterol coronary disease with history of ND and stent placement diabetes mellitus COPD Surgical History Surgery Date(Month/Year) cardiac catheterization with stent place ment right carotid endarterectomy
--- OUTSIDE RECORDS SUMMARY | 2024-10-26 07:40 | XMS_ITS | Encounter Summary ---
Author Organization [facility] Address [address] [place] [address] Care Team Providers Care Toolroom Checker Name Role Phone Physician, Pcp Unknown Primary Care Provider Kimberlee vailable Reason for Visit * Reason Onset Date Comments medicatonnot covered 10/19/2024 Encounter Details Date Type Department Care Team (Late Contact Info) Description 10/19/2024 Telephone Orthopedic Surgery - [place] [address] [phone] Jorge Palomo, DPM [address] [address] medicatonnot covered Social History Tobacco Use Types Packs/Day Years Used Date Smoking Tobacco: Never Assessed Sex and Gender Information Value Date Recorded Sex Assigned at Not on file Legal Sex Male 8:38 PM EST Gender Identity Not on file Sexual Orientation Not on file documented as of this encounter Progress Notes * Nohemi Pandey - 10/19/2024 9:22 AM EDT Patient is calling stating that the Lidocaine patches that were prescribed last month are not covered by his insurance, he Is inquiring on a Prior Auth or an alternative medication. Please advise. Please call him back @ [phone]. Thanks. documented in this encounter Plan of Treatment Upcoming Encounters Date Type Department Care Team (Late Contact Info) Description 12/22/2024 10:00 AM EDT Office Visit Orthopedic Surgery - [place] [address] [phone] Jorge Palomo, DPRishabh [address] [address] documented as of this encounter Visit Diagnoses Not on filedocumented in this encounter Care Teams Toolroom Checker Relationship Specialty Start Date End Date Physician, Pcp Unknown PCP - General 01/14/24 documented as of this encounter
--- OUTSIDE RECORDS SUMMARY | 2024-10-26 07:40 | XMS_ITS | Clinical Summary ---
Author Organization [facility] Address [address] [address] Phone Care Team Providers Care Flight Attendant Inflight Services Name Role Phone Henok Sierra Primary Care Provider [phone] Allergies No known active allergies Medications aspirin (ASPIR-81) 81 MG EC tablet Take 81 mg by mouth daily. Active atorvastatin (LIPITOR) 80 MG tablet atorvastatin 80 mg tablet Active umeclidinium (INCRUSE ELLIPTA) 62.5 mcg/actuation inhalation Incruse Ellipta 62.5 mcg/actuation powder for inhalation Active glipiZIDE (GLUCOTROL) 5 MG tablet glipizide 5 mg tablet Active tamsulosin (FLOMAX) 0.4 mg Cap tamsulosin 0.4 mg capsule TAKE 1 CAPSULE BY MOUTH EVERY DAY Active albuterol (VENTOLIN HFA) 90 mcg/actuation inhaler Ventolin HFA 90 mcg/actuation aerosol inhaler Active insulin pen needles, disposable, (BD ULTRA-FINE MARIAN PEN NEEDLE) 32 gauge x 5/32 Ndle BD Ultra-Fine Marian Pen Needle 32 gauge x 5/32 Active blood sugar diagnostic (ACCU-CHEK SARAH PLUS) Strp strips Accu-Chek Sarah Plus test strips Take 1 strip twice a day by miscell. route. Active insulin glargine (BASAGLAR KWIKPEN U-100 INSULIN) 100 unit/mL (3 mL) InPn injection pen Basaglar KwikPen U-100 Insulin 100 unit/mL (3 mL) subcutaneous Active losartan (COZAAR) 50 MG tablet losartan 50 mg tablet Active metFORMIN (GLUCOPHAGE) 1000 MG tablet metformin 1,000 mg tablet TAKE 1 TABLET BY MOUTH TWICE A DAY Active metoprolol tartrate-hydroC HLOROthiazide (LOPRESSOR HCT) 50-25 mg per tablet metoprolol tartrate 50 mg-hydrochloroth iazide 25 mg tablet Active Social History Tobacco Use Types Packs/Day Years Used Date Smoking Tobacco: Never Assessed Education Answer Date Recorded Are you interested in more education? Not on shaun e 07/06/2022 Are you concerned about learning? Not on file 07/06/2022 No 07/06/2022 No 07/06/2022 Digital Access Answer Date Recorded No 08/04/2022 No 08/04/2022 Reliable internet access at home? Not on file 08/04/2022 Device with a working camera? Not on file Sex and Gender Information Value Date Recorded Sex Assigned at Not on file Legal Sex Male 10:35 PM EDT Gender Identity Not on file Sexual Orientation Not on file Last Filed Vital Signs Vital Sign Reading Time Taken Comments Blood Pressure 140/75 09/19/2015 1:22 AM EDT Pulse 68 09/19/2015 1:22 AM EDT Temperature - - Respiratory Rate - - Oxygen Saturation - - Inhaled Oxygen Concentration - - Weight 127.5 kg (281 lb) 09/19/2015 1:22 AM EDT Height 166.4 cm (5' 5.5 ) 09/19/2015 1:22 AM EDT Body Mass Index 46.05 09/19/2015 1:22 AM EDT Plan of Treatment Health Maintenance Due Date Last Done Comments CREATININE LEVEL 1956 LIPID PANEL 1956 POTASSIUM LEVEL 1956 DEPRESSION SCREENING 1968 SMOKING Hx and SMOKELESS TOBACCO SCREENING 1969 HEPATITIS C SCREENING 1974 COLOGUARD 2001 COLONOSCOPY 2001 COLORECTAL CANCER SCREENING 2001 FIT TEST 2001 FOBT 2001 SIGMOIDOSCOPY 2001 VIRTUAL COLONOSCOPY 2001 ZOSTER VACCINES (1 of 2) 2006 PNEUMOCOCCAL VACCINES (50+ years) (2 of 2 - PCV) 12/31/2017 12/31/2016 Adult Td,Tdap Booster 08/07/2022 08/07/2012 COVID-19 VACCINE (3 - 2023-2 5 season) 2023 08/29/2020, 08/01/2020 RSV VACCINE (1 - 1-dose 75+ series) 07/16/2031 HEPATITIS A VACCINES Aged Out No long er eligible based on patient's age to complete this topic HIB VACCINES Aged Out No longer eligi ble based on patient's age to complete this topic MENINGOCOCCAL VACCINES (ACWY) Aged Out No longer eligible based on patient's age to complete this topic MENINGOCOCCAL VACCINES (B) Aged Out N o longer eligible based on patient's age to complete this topic Medical Devices Not on file Insurance MEDICARE PART A & B Member Subscriber Plan / Payer (Ef fective 1991-Present) Name:Yogi Mayo Member ID:[id number] Relation to Subscriber:Self Name:Yogi Mayo Subscriber ID:[id number] Payer ID:[id number] Group ID:Not on file Type:Medicare Address: [employer] [address] [place], [place] [id number] [place], [place] [address]HEALTH MEDICARE PART A & [facility] B [facility] MEDIC[facility] PART A & B [facility] PART [facility] & [facility] MEDICARE PART A & B [place] MEDICARE PART A & B HEALTH Care Teams Flight Attendant Inflight Services Relationship Specialty Start Date End Date Henok Sierra DO PCP - General Internal Medicine 09/29/18 Additional Source Comments The information contained in this document represents components of the legal health record. It is not the complete legal health record.[facility]
[2024-10-26 09:53] LABS: MANUAL DIFF FLAG NO
[2024-10-26 10:06] LABS: Hematocrit 40.3 % (42.0-52.0); Hemoglobin 13.6 g/dl (14.0-18.0); Imm Gran Abs Auto 0.03 X10*3/uL (0.00-0.03); Imm Gran Pct Auto 0.5 % (0.0-0.4); Lymphocytes Absolute Auto 1.6 X10*3/uL (1.2-4.9); Mean Corpuscular HGB Conc 33.7 g/dl (31.0-36.0); Mean Corpuscular Hemoglobin 28.3 pg (27.0-33.0); Mean Corpuscular Volume 84.0 fL (80.0-98.0); NRBC Abs Auto 0.000 X10*3/uL (0.0-0.012); NRBC Pct Auto 0.0 /100WBC (0.0-0.2); Platelet Count 186 X10*3/uL (160-400); Red Blood Count 4.80 X10*6/uL (4.60-5.80); White Blood Count 5.6 X10*3/uL (4.8-10.8)
[2024-10-26 10:19] LABS: Hemoglobin A1C 175.3945 umol/L; Total Hemoglobin (HGBA1C) 3549.9720 umol/L
[2024-10-26 11:02] LABS: Alanine Aminotransferase 30 U/L (0-40); Albumin Level 4.4 g/dL (3.5-5.0); Alkaline Phosphatase 86 U/L (39-117); Anion Gap 13 (12-20); Aspartate Amino Transferase 29 U/L (5-37); Blood Urea Nitrogen 19 mg/dL (9-16); Calcium 9.6 mg/dL (8.4-10.2); Carbon Dioxide 28 mmol/L (22-29); Chloride 100 mmol/L (96-108); Cholesterol 84 mg/dL (<200); Estimated Glomerular Filt Rate > 60; HDL Cholesterol 29 mg/dL (>40); Potassium 3.8 mmol/L (3.3-5.1); Sodium 137 mmol/L (135-145); Total Protein 6.9 g/dL (6.5-8.0); Triglycerides 108 mg/dL (<150)
== END 2024-10-26 07:39 | disposition home or self-care (01) ==
LOC: HO.10HDL 07:38
PROVIDERS: Visit Provider Physician Assistant
DX: E11.40 Type 2 diabetes mellitus with diabetic neuropathy, unspecified (principal)
CPT/HCPCS: 36415; 80053; 80061; 83036; 85025

== ENCOUNTER 2025-01-11 07:29 | Outpatient (REF) | payer MEDICARE, SELFPAY ==
--- OUTSIDE RECORDS SUMMARY | 2025-01-11 07:33 | XMS_ITS | Clinical Summary ---
Author Organization [facility] Address [address] [id number] Phone Care Team Providers Care Coil Connector Name Role Phone Henok Sierra Primary Care Provider [phone] Allergies No known active allergies Medications aspirin [...] 12/31/2017 12/31/2016 Adult Td,Tdap Booster 08/07/2022 08/07/2012 INFLUENZA VACCINE (#1) 2024 , 01/19/2019, 12/05/2017, Additional history exists COVID-19 VACCINE (3 - 2024- season) 2024 08/29/2020, 08/01/2020 RSV VACCINE (1 - 1-dose [...] file Insurance MEDICARE PART A & B [facility] MEDICARE PART A & B [place] B [facility] MED[facility] PART A & [place] & B [facility] MEDICARE PART A & [place] PART A & B HEALTH MEDICARE PART A & [place] [address] Care Teams Coil Connector Relationship Specialty Start Date End Date Henok Sierra DO [email or web address] PCP - General Internal Medicine 09/29/18 Additional Source Comments The information contained in this document represents components of the legal health record. It is not the complete legal health record.[facility]
--- OUTSIDE RECORDS SUMMARY | 2025-01-11 07:33 | XMS_ITS | Data Portability ---
Author Organization [facility], Telehealth Patient Home Address [address] [place] [address] Assessment Encounter Date Assessment Date Assessment LastModified by Organization Details LastModified Time 07/01/2023 07/01/2023 Patient agreed and verbally consents to this audio and video Telehealth appt via a secure platform [email or web address] Not available 07/01/2023 15:17:00 05/11/2024 05/11/2024 Patient presented for medication refill. Patient tolerating medication well at current dose without adverse effects. Refilled as below. Discussed plan with patient, who expressed understanding . Follow up as noted below. [email or web address] Not available 05/11/2024 10:41:39 Plan of Treatment Reminders Order Date Submit Date Provider Last Modified By Organization Details Last Modified Time Details Appointments None recorded. Lab CMP, serum or plasma 2024 025 [facility], [address] [place] [address], [address], 11:37:07 hemoglobin A1c, QN, blood 2024 025 [facility], [address] [place] [address], [address], 11:37:07 CBC w/ auto diff 2024 025 [facility], [address] [place] [address], [address], 5 11:37:07 lipid panel, blood 2024 025 [facility], [address] [place] [address], [address], 5 11:37:07 CMP, serum or plasma 2024 025 [facility], [address] [place] [address], [address], 5 10:51:33 hemoglobin A1c, QN, blood 2024 025 [facility], [address] [place] [address], [address], 5 10:51:33 lipid panel, blood 2024 025 [facility], [address] [place] [address], [address], 5 10:51:33 CBC w/ auto diff 2024 025 [facility], [address] [place] [address], [address], 5 10:51:33 CMP, serum or plasma 2023 024 [facility], [address] [place] [address], [address], 5 19:05:26 lipid panel, blood 2023 024 [facility], [address] [place] [address], [address], 4 10:54:08 hemoglobin A1c, QN, blood 2023 024 [facility], [address] [place] [address], [address], 4 10:54:08 CBC w/ auto diff 2023 024 [facility], [address] [place] [address], [address], 4 10:54:08 CMP, serum or plasma 2024 024 [facility], [address] [place] [address], [address], 5 19:05:26 CMP, serum or plasma 2023 024 [facility], [address] [place] [address], [address], 4 10:30:12 lipid panel, blood 2023 024 [facility], [address] [place] [address], [address], 4 10:30:12 hemoglobin A1c, QN, blood 2023 024 [facility], [address] [place] [address], 287[address], 4 10:30:12 CBC w/ auto diff 2023 024 [facility], [address] [place] [address], [address], 4 11:42:26 CBC w/ auto diff 2023 024 [facility], [address] [place] [address], [address], 4 11:42:26 Referral None recorded. Procedures None recorded. Surgeries None recorded. Imaging LDCT, chest, for lung cancer screening - patient has a 57 year history of smoking a pack a day smoker, stopping smoking only 4 years ago 2024 025 [facility], [facility] [place], [address], 5 08:27:22 Medication Orders prednisone 10 mg tablet 2023 025 [id number], [address] [place] [address], [address], 5 10:46:27 amoxicilli n 875 mg-potassi um clavulanat e 125 mg tablet 2023 024 [id number], [address] [place], [address], 4 10:45:15 Lantus Solostar U-100 Insulin 100 unit/mL (3 mL) subcutaneo us pen 2023 024 [id number], [address] [place], [address], 4 10:23:29 albuterol sulfate HFA 90 mcg/actuat ion aerosol inhaler 2023 024 [id number], [address] [place] [address], [address], 4 10:26:37 Patient TargetsNo targets recorded. Patient InstructionsNo instructions recorded. Reason for Referral None Reported. Results Created Date Observation Date Name Description Value Unit Range Abnormal Flag Note LastModifiedBy Organization Detail LastModifiedTime 06/23/1906/22/2023 , [facility] ardio gram No observ ation record ed. [email or web address] Not Available 2023 08:49:04 02/27/20 24 02/21/2024 myoca rdial perfu evans study w/ eject ion fract ion (PROC ) No observ ation record ed. [facility] (Medical Records) [address] [place], [address], 02/27/2024 19:24:57 Result Notes None recorded. Problems Name Problem SNOMED Code Status Onset Date Resolution Date Notes Provider Name and Address Organization Details Recorded Time Diabetes mellitus 66661858 Active 2017 Not Available [facility] 3 10:06:37 Obesity 516496398 Active 2017 Not Available [facility] 3 10:06:37 Chronic obstructi ve pulmonary disease 83433887 Active 2017 Not Available [facility] 3 10:06:37 Vertigo 779192561 Active 2017 Not Available [facility] 3 10:06:37 Essential hypertens ion 16009576 Active 2017 LISA OLIVEIRA [address] [place], [address], [facility] 5 08:48:44 Hyperchol esterolem ia 65696505 Active 2017 Not Available [facility] 3 10:06:37 Vascular disorder 49975150 Active 2017 Not Available [facility] 3 10:06:37 Body mass index 30+ - obesity 843642812 Active 2018 Not Available [facility] 3 10:06:37 Type 2 diabetes mellitus 17436976 Active 2020 LISA OLIVEIRA [address] [place], [address], [facility] 5 08:48:57 Tobacco dependenc e syndrome 35005899 Active 2021 Not Available [facility] 3 10:06:37 Diabetic periphera l neuropath y 650989817 Active 2022 Not Available [facility] 3 10:06:37 Foot callus 526312297 Active 2022 Not Available [facility] 3 10:06:37 Low back pain 890952642 Active 2022 LISA OLIVEIRA [address] [place], [address], [facility] 3 10:22:49 Foot ulcer due to type 2 diabetes mellitus 443601873936 0 Active 2022 LISA OLIVEIRA [address] [place], [address], [facility] 3 15:27:14 Skin ulcer 50556564 Active 2023 LISA OLIVEIRA [address] [place], [address], [facility] 4 10:24:36 Uvulitis 332561907 Active 2023 LISA OLIVEIRA [address] [place], [address], [facility] 4 15:14:36 Sleep apnea 97611218 Active 2024 LISA OLIVEIRA [address] [place], [address], [facility] 5 10:38:39 Problem of low back 897781143 Active 2024 LISA OLIVEIRA [address] [place], [address], [facility] 5 13:31:02 Problem Notes None recorded. Procedures Surgical History Date Name Laterality Status Provider Name and Address Organization Details Recorded Time 2 Colonoscopy completed Michelle Joey [facility] 04/07/2018 08:21:02 Imaging Results None recorded. Procedure Notes None recorded. Medical Equipment None Reported. Allergies No known drug allergies Medications Name Sig Start Date Stop Date Status Note LastModified by Organization Details LastModified Time losartan 50 mg tablet TAKE 1 TABLET BY MOUTH EVERY DAY active Not Available Not Available No t Available cyclobenzap rine 10 mg tablet PLEASE SEE ATTACHED FOR DETAILED DIRECTION S 05/11 completed Not Available Not Available Not Available atorvastati n 80 mg tablet TAKE 1 TABLET BY MOUTH EVERY DAY active Not Available Not Available No t Available nystatin 100,000 unit/mL oral suspension SWISH AND SWALLOW 5 ML BY MOUTH 4 TIMES A DAY FOR 10 DAYS 05/11 completed Not Available Not Available Not Available Colace 100 mg capsule Take 1 capsule 3 times a day by oral route for 30 days. 05/16 completed Not Available Not Available Not Available prednisone 10 mg tablet PLEASE SEE ATTACHED FOR DETAILED DIRECTION S 05/11 completed Not Available Not Available Not Available azithromyci n 250 mg tablet TAKE 2 TABLETS BY MOUTH TODAY, THEN TAKE 1 TABLET DAILY FOR 4 DAYS 05/16 completed Not Available Not Available Not Available tizanidine 4 mg tablet TAKE 1 TABLET BY MOUTH EVERY 6 HOURS NEEDED FOR 14 DAYS active Not Available Not Available No t Available glipizide ER 10 mg tablet, extended release 24 hr Take 1 tablet twice a day by oral route for 90 days. 09/25 completed Not Available Not Available Not Available glipizide 10 mg tablet TAKE 2 TABLET BY MOUTH TWICE DAILY active Not Available Not Available No t Available Lantus U-100 Insulin 100 unit/mL subcutaneou s solution 04/07 completed Not Available Not Available Not Available meclizine 12.5 mg tablet TAKE 1 TABLET BY MOUTH THREE TIMES A DAY NEEDED FOR 14 DAYS 05/11 completed Not Available Not Available Not Available metoprolol tartrate 50 mg-hydrochl orothiazide 25 mg tablet TAKE 1/2 TABLET TWICE A DAY BY MOUTH active Not Available Not Available No t Available tramadol 50 mg tablet Take 1 tablet every 6 hours by oral route as needed for 14 days. 12/18 completed Not Available Not Available Not Available acetaminoph en ER 650 mg tablet,exte nded release TAKE 2 CAPSULES BY MOUTH TWICE A DAY FOR 5 DAYS 05/11 completed Not Available Not Available Not Available tamsulosin 0.4 mg capsule TAKE 2 CAPSULES BY MOUTH EVERY DAY 2024 active Not Available Not Available Not Avai [...] 1 CAPSULE BY MOUTH TWICE A DAY active Not Available Not Available No t Available hydrocortis one 2.5 % topical cream APPLY [...] aerosol inhaler INHALE 2 PUFFS BY MOUTH EVERY DAY NEEDED FOR INCREASED SHORNTESS OF BREATH active Not Available Not Available No t Available clotrimazol e 1 % topical cream APPLY TO SKIN AND TOENAILS DAILY FOR 12 WEEKS 11/03 completed Not Available Not Available Not Available finasteride 5 mg tablet Take 1 tablet every day by oral route. 08/25 completed Not Available Not Available Not Available glipizide 5 mg tablet TAKE 2 TABLETS BY MOUTH TWICE A DAY 05/11 completed Not Available Not Available Not Available naproxen 500 mg tablet TAKE 1 TABLET BY MOUTH TWICE A DAY FOR 2 WEEKS 2024 active Not Available Not Available Not Avai [...] TAKE 1 TABLET BY MOUTH EVERY DAY 05/11 completed Not Available Not Available Not Available Lantus Solostar U-100 Insulin 100 unit/mL (3 mL) subcutaneou s pen INJECT 40 UNITS SUBCUTANE OUSLY EVERY DAY AT BEDTIME active Not Available Not Available No t Available diclofenac 1 % topical gel APPLY 2 GRAMS TOPICALLY 4 TIMES PER DAY FOR 10 DAYS 11/03 completed Not Available Not Available Not Available Accu-Chek FastClix Lancing Device kit USE TID FOR SUGAR CHECK 10/27 completed Not Available Not Available Not Available fluticasone furoate 100 mcg-vilante rol 25 mcg/dose inhalation powder INHALE 1 PUFF BY MOUTH EVERY DAY active Not Available Not Available No t Available Incruse Ellipta 62.5 mcg/actuati on powder for [...] Not Available Not Available Not Avai lable fluticasone 113 mcg-salmete rol 14 mcg/actuati on breath activated powdr INHALE 1 PUFF BY MOUTH EVERY DAY active Not Available Not Available No t Available Accu-Chek Fastclix Lancet Drum USE 3 TIMES A DAY FOR SUGAR CHECKS active Not Available Not Available No t Available FreeStyle Sumi 14 Day Minto CHECK GLUCOSE LEVEL WITH READER 3 TIMES PER DAY 07/05 completed Not Available Not Available Not Available FreeStyle Sumi 14 Day Sensor kit use as directed 2020 active Not Available Not Available Not Avai lable Flucelvax Quad (PF) 60 mcg (15 mcg [...] OUS INJECTION EVERY WEEK ROTATE INJECTION SITES 05/11 completed Not Available Not Available Not Available FreeStyle Sumi 3 Plus Sensor device USE DAILY FOR BLOOD GLUCOSE MONITORIN G CHANGE EVERY 15 DAYS ROTATE INJECTION SITES active Not Available Not Available No t Available Marian 2nd Gen Pen Needle 32 gauge x /32 USE ONCE DAILY DIRECTED active Not Available Not Available No t Available Vitals Date Recorded Body height Body mass index (BMI) Body weight Heart rate Oxygen saturation Oxygen saturation in Arterial blood by Pulse oximetry Systolic And Diastolic Provider Name and Address Organization Details Last Updated DateTime 5 166.37 cm 43.3 kg/m2 040429. 18 g 80 /min 95 % 95 % 118/78 mm[Hg] Fariha [facility] 5 10:30:43 Date Recorded Body height Body mass index (BMI) Body weight Heart rate Oxygen saturation Oxygen saturation in Arterial blood by Pulse oximetry Systolic And Diastolic Provider Name and Address Organization Details Last Updated DateTime 4 166.37 cm 44.9 kg/m2 882527. 31 g 60 /min 95 % 95 % 120/68 mm[Hg] Angie Pillai [facility] 4 10:03:11 Date Recorded Body height Body mass index (BMI) Body weight Heart rate Oxygen saturation Oxygen saturation in Arterial blood by Pulse oximetry Systolic And Diastolic Provider Name and Address Organization Details Last Updated DateTime 4 166.37 cm 44 kg/m2 841929. 19 g 72 /min 95 % 95 % 130/80 mm[Hg] Fariha [facility] 4 10:33:25 Date Recorded Body height Body mass index (BMI) Body weight Heart rate Oxygen saturation Oxygen saturation in Arterial blood by Pulse oximetry Systolic And Diastolic Provider Name and Address Organization Details Last Updated DateTime 5 166.37 cm 42.4 kg/m2 299135. 63 g 70 /min 97 % 97 % 118/80 mm[Hg] Fariha [facility] 5 11:22:07 Social History Question Answer Notes LastModified by Organizat ion Details LastModified Time Tobacco Smoking Status Former Smoker Not Available [facility] 01/12/2020 03:36:23 What Was The Date Of Your Most Recent Tobacco Screening? 11/03/2024 [email or web address] Information not available 11/03/2024 Sex: Unknown Functional Status Question Answer Note LastModified by Organization D etails LastModified Time Do you or have you ever used any other forms of tobacco or nicotine? No [email or web address] Information not available 06/04/2023 Mental Status None recorded. Family History Nothing Reported. Medical History No medical history recorded. Immunizations Vaccine Type Date Status Note Provider Nam e and Address Organization Details Recorded Time COVID-19, mRNA, LNP-S, PF, 100 mcg/0.5mL dose or 50 mcg/0.25mL dose 1 completed Rohini Jaquez [facility] 09/07/2020 12:02:47 Td (adult) 3 [facility] 12:03:07 Influenza, split virus, quadrivalent, preservative 1 completed Henok Sierra, [address] [place] [address], [address], [facility] 11/26/2020 13:24:41 Influenza, split virus, quadrivalent, preservative 8 completed Michelle Cook [facility] 12/09/2017 08:56:48 COVID-19, mRNA, LNP-S, PF, 100 mcg/0.5mL dose or 50 mcg/0.25mL dose 1 completed Reina Monroy [facility] 03/08/2021 11:03:32 Pneumococcal Conjugate, unspecified formulation 7 completed Chasity Galvan NP, [address] [place] [address], [address], [facility] 12/30/2017 09:21:11 Pneumococcal Conjugate, unspecified formulation 9 completed Chasity Galvan NP, [address] [place] [address], [address], [facility] 12/30/2017 09:21:37 COVID-19, mRNA, LNP-S, PF, 100 mcg/0.5mL dose or 50 mcg/0.25mL dose 2 completed Marci Ghosh [facility] 01/17/2022 13:28:00 Influenza, split virus, quadrivalent, preservative 2 completed [facility] 01/17/2022 13:28:09 influenza, unspecified formulation 3 completed Bertram Sierra null, [facility] 11/12/2022 13:57:37 influenza, unspecified formulation 4 completed Fariha Pena [facility], [facility] 12/06/2023 11:28:08 SARS-COV-2 (COVID-19) vaccine, UNSPECIFIED 4 completed Fariha Pena [facility], [facility] 12/06/2023 11:28:15 influenza, unspecified formulation 5 completed Bertram Sierra null, [facility] 10/26/2024 08:23:36 influenza, unspecified formulation 5 completed Fariha Pena [facility], [facility] 10/28/2024 11:01:19 Influenza, split virus, quadrivalent, preservative 0 completed Henok Sierra, [address], [address] 01/01/2020 08:30:52 COVID-19, mRNA, LNP-S, PF, 100 mcg/0.5mL dose or 50 mcg/0.25mL dose 1 completed Reina Monroy [facility] 08/31/2020 08:47:56 Past Encounters Encounter ID Performer Location Encounter Start Date Encounter Closed Date Diagnosis/Indication Diagnosis SNOMED-CT Code Diagnosis ICD10 Code Diagnosis IMO Codes Diagnosis Note [id number] Henok Sierra [facility] [address],[place] [address] 11/04/2017 14:09:15 11/04/2017 16:06:59 Chronic obstructive pulmonary disease 16636758 J44.9 Hypercholesterolemia 136 36010 E78.00 Essential hypertension 74398684 I10 Diabetes mellitus 917150 09 E11.9 Pain in left knee 456654 6947 89429 M25.562 [id number] Henok Sierra [facility] [address], [place] [address] 12/30/2017 08:58:32 12/30/2017 12:33:37 Benign prostatic hyperplasia with outflow obstruction 383100774 N40.1 was not taking- restart Hypercholesterolemia 136 26631 E78.00 HDL 33, encourage activity Chronic ob structive pulmonary disease 29242455 J44.9 stable- no recent exacerbati on Vascular disorder 219766 09 I99.9 up to date cardiologi st and vascular Essential hypertension 09364743 I10 stable Diabetes mellitus 107079 09 E11.9 A1C 7.2-follow Active or passive immunization 303236501 Z23 had flu vaccine, up to date pneumonia vaccines [id number] Henok Sierra [facility] [address] [facility],[place] [address] 04/07/2018 13:30:45 04/07/2018 15:20:50 Diabetes mellitus 98738168 E11.9 A1C 7.2-follow Chronic ob structive pulmonary disease 93111860 J44.9 stable- no recent exacerbati on Cellulitis 866018183 L03 .90 if worse or no better-com e back in Hypercholesterolemia 136 04316 E78.00 HDL 33, encourage activity Essential hypertension 72565911 I10 stable Vascular disorder 279044 09 I99.9 up to date cardiologi st and vascular [id number] Henok Sierra [facility] [address] [facility],[place] [address] 08/25/2018 13:52:00 08/25/2018 14:40:43 Diabetes mellitus 92586305 E11.9 a1c 7.6 (up from 7.2) has lost weight though through keto diet recommende d to monitor blood sugar closely on this diet as he may go low with carb restrictio n and insulin continue current regimen continue weight loss Chronic ob structive pulmonary disease 46858671 J44.9 stable- no recent exacerbati on Hypercholesterolemia 136 93734 E78.00 HDL 36, up from 33 LDL well within goal range Essential hypertension 65861952 I10 stable Vascular disorder 316345 09 I99.9 s/p carotid endarterec roz stent in heart up to date cardiologi st and vascular Body mass index 30+ - obesity 227055087 Z68.41 losing weight Active or passive immunization 953748047 Z23 Achilles bursitis 975151 002 M76.62 nsaids + ortho referral Benign pro static hyperplasia 183581484 N40.0 still waking up at least 5-6 times per night, which is actually improved from previously [id number] Henok Sierra [facility] [address] [facility] [place] [address] 01/12/2019 10:56:24 01/12/2019 11:58:39 Diabetes mellitus 08635084 E11.9 a1c is 7.2, down from 7.6 previously continue current regimen continue weight loss Chronic ob structive pulmonary disease 83259544 J44.9 stable- still quite a bit of exertional sob no recent exacerbati ons will trial breo continue incruse and ventolin as needed has quit smoking lives with a smoker Hypercholesterolemia 136 87585 E78.00 stable Essential hypertension 62550319 I10 stable Vascular disorder 170332 09 I99.9 s/p carotid endarterec roz stent in heart up to date cardiologi st and vascular Body mass index 30+ - obesity 267667101 Z68.41 losing weight Active or passive immunization 000891555 Z23 Achilles bursitis 474251 002 M76.62 saw ortho, will hold off on further therapy may consider second op in not improvemen t by march Benign pro static hyperplasia 258085722 N40.0 still waking up at least 5-6 times per night, despite the flomax Hemorrhoids 89595932 K64 .9 if bleeding persists after 2-3 weeks, plan is to see gi 2/2 constipati on 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 9153493140 19721 E08.42 continue diabetic shoe wear Foot callus 330331190 L9 8.499 continue diabetic shoe wear [id number] Henok Sierra DO [facility] [address] [facility],[place] [address] 06/01/2019 09:47:09 06/01/2019 10:27:36 Chronic obstructive pulmonary disease 38241834 J44.9 continue breo+ incruse and very rare need for rescue inhaler has quit smoking lives with a smoker Diabetes mellitus 392484 09 E11.9 a1c is up to 7.9 would like to work on diet Hypercholesterolemia 136 07919 E78.00 stable Essential hypertension 36667830 I10 mildly elevated Vascular disorder 059009 09 I99.9 s/p carotid endarterec roz stent in heart up to date cardiologi st and vascular Body mass index 30+ - obesity 661501544 Z68.41 plan to work on diet for better dm control and weight loss Achilles bursitis 512678 002 M76.62 saw ortho, will hold off on further therapy may consider second op in not improvemen t by march Benign pro static hyperplasia 396377099 N40.0 seeing urology Hemorrhoids 50883068 K64 .9 still hvaing constipati on no more blood in the stool would like to see GI 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 0791334745 78241 E08.42 continue diabetic shoe wear Foot callus 624880130 L9 8.499 continue diabetic shoe wear Type 2 pallavi betes mellitus 83434261 E11.9 [id number] Henok Sierra [facility] [address] [facility], [place] [address] 09/01/2019 09:06:20 09/01/2019 09:43:21 Hypercholesterolemia 66534644 E78.00 didn't get it done will give him paperwork again Diabetes mellitus 089847 09 E11.9 a1c is down Chronic ob structive pulmonary disease 57760999 J44.9 stable Diabetic p eripheral neuropathy 981301723 E11.40 would like to start gabapentin for neuropathy for his feet [id number] Henok Sierra [facility] [address] [facility],[place] [address] 12/28/2019 08:59:26 12/28/2019 09:41:52 Chronic obstructive pulmonary disease 59252583 J44.9 stable Essential hypertension 60388081 I10 fine today will continue to monitor Diabetes mellitus 859909 09 E11.9 a1c needs recheck [id number] Henok Sierra [facility] [address] [facility],[place] [address] 03/15/2020 08:31:37 03/15/2020 10:41:45 Chronic obstructive pulmonary disease 07530863 J44.9 will treat his symptoms in the mean time, he is out of his inhalers so will supply him with them for COPD control Acute exac erbation of chronic obstructive pulmonary disease 202216519 J44.1 will treat with pred taper and abx to mitigate his symptoms until he can be tested will fu with results will call if symptoms worsen Dyspnea 520224924 R06.00 will see if taper works with increasing his ability to breath, to breath more easily [id number] Henok Sierra [facility] [address] [facility] [address] 05/16/2020 09:36:31 05/16/2020 10:20:26 Chronic obstructive pulmonary disease 53163552 J44.9 stable, no interventi on needed Type 2 pallavi betes mellitus 96134006 E11.9 stable, no interventi on Essential hypertension 73517420 I10 will recheck at next appt Dyspnea 153124761 R06.00 pred taper worked excellent while patient had COVID, will check lungs to see if any longer term damage still having very mild sob [id number] Henok Sierra [facility] Internal Medicine [address] [facility],[place] [address] 09/26/2020 14:13:27 09/26/2020 16:23:46 Type 2 diabetes mellitus 54820917 E11.9 stable, no interventi on Essential hypertension 79388725 I10 will recheck at next appt Chronic ob structive pulmonary disease 10037491 J44.9 stable, no interventi on needed Vertigo 903480331 R42 will fu with PT which he was given referral from hospitalwi ll give him the exercise to try at home by himself [id number] Henok Sierra [facility] Internal Medicine [address] [facility],[address] [place] [facility] [address] 01/30/2021 09:56:26 01/30/2021 11:18:15 Hypercholesterolemia 80315433 E78.2 didn't get it done will give him paperwork again Chronic ob structive pulmonary disease 81603216 J41.0 stable, no interventi on needed Type 2 pallavi betes mellitus 34673662 E11.9 stable, no interventi on given free style free sample Essential hypertension 36483009 I10 will recheck at next appt Diabetic p eripheral neuropathy 044810975 E11.40 having issues with his insuance with his metformin Body mass index 30+ - obesity 476316206 Z68.41 discussed diet and exercise Foot callus 067562482 L9 8.499 stable Neuropathy 245159992 G62 .89 will increase the gabapentin to 300 mg BID [id number] Henok Sierra [facility] Internal Medicine [address] [facility], [place] [address] 04/12/2021 09:14:21 04/17/2021 10:51:46 Diabetic peripheral neuropathy 534910056 E11.40 having issues with his insuance with his metformin Body mass index 30+ - obesity 661900303 Z68.41 discussed diet and exercise Chronic ob structive pulmonary disease 31501536 J41.0 stable, no interventi on needed Foot callus 532753075 L9 8.499 stable Type 2 pallavi betes mellitus 52124221 E11.9 stable, no interventi ongiven free style free sample Strain of supraspinatus muscle AND/OR tendon 93650659 S46.012A will start on medication [id number] Henok Sierra [facility] Internal [facility] [address] [facility], [place] [address] 05/15/2021 11:42:16 05/16/2021 08:18:27 Seborrheic keratosis 786527136 L82.1 will fu with derm Type 2 pallavi betes mellitus 99056101 E11.9 stable, no interventi ongiven free style free sample Essential hypertension 67221672 I10 stable Vertigo 171310559 R42 resolved [id number] Henok Sierra [facility] Internal Medicine [address] [facility], [place] [address] 06/19/2021 13:28:12 06/20/2021 14:55:55 Type 2 diabetes mellitus 95279245 E11.9 stable, no interventi ongiven free style free sample Essential hypertension 41672019 I10 stable Vertigo 194204304 R42 PT tomorrow Tobacco de pendence syndrome 75078991 F17.290 discussed Active or passive immunization 299187081 Z23 advised [id number] Henok Sierra [facility] Internal Medicine [address] [facility], [address] [place] [facility] [place] [address] 09/25/2021 15:33:57 09/25/2021 15:58:50 Chronic obstructive pulmonary disease 73842663 J41.0 stable, no interventi on needed Essential hypertension 26615311 I10 stable Type 2 pallavi betes mellitus 86984582 E11.9 stable, no interventi ongiven free style free sample Body mass index 30+ - obesity 968280443 Z68.41 discussed diet and exercise [id number] Henok Sierra [facility] Internal Medicine [address] [facility] [place] [address] 01/08/2022 14:32:18 01/09/2022 08:33:50 Diabetes mellitus 94007608 E11.9 a1c needs recheck Essential hypertension 24162197 I10 stable Hypercholesterolemia 136 57084 E78.2 stable [id number] Henok Sierra [facility] Internal Medicine [address] [facility] [place] [address] 04/10/2022 08:15:36 04/13/2022 08:44:26 Chronic obstructive pulmonary disease 98215389 J41.0 stable, no interventi on needed Essential hypertension 23681528 I10 stable Type 2 pallavi betes mellitus 50358896 E11.9 needs to work on diet Hypercholesterolemia 136 55457 E78.2 stable [id number] Henok Sierra [facility] Internal Medicine [address] [facility] [place] [address] 07/09/2022 09:47:19 07/09/2022 17:15:24 Hypercholesterolemia 26522467 E78.2 stable Chronic ob structive pulmonary disease 33854214 J41.0 stable, no interventi on needed Essential hypertension 07941135 I10 stable Diabetes mellitus 697841 09 E11.9 a1c needs recheck Obesity 677218836 E66.01 stable Type 2 pallavi betes mellitus 83479128 E11.9 needs to work on diet Diabetic p eripheral neuropathy 925025631 E11.41 having issues with his insuance with his metformin Body mass index 30+ - obesity 296817401 Z68.41 discussed diet and exercise Foot callus 583750431 L9 8.499 stable [id number] Henok Sierra [facility] Internal Medicine [address] [facility] [address] [place] [address] 09/17/2022 10:11:43 09/18/2022 09:09:14 Hypercholesterolemia 50277303 E78.2 stable Obesity 315673581 E66.01 stable Type 2 pallavi betes mellitus 54491287 E11.9 A1c is 6.9% Essential hypertension 72035937 I10 stablebett er with recheck 14152 Henok Sierra [facility] Internal Medicine [address] [facility],[place] [address] 12/31/2022 10:03:05 12/31/2022 12:33:38 Low back pain 812874898 M54.59 will start on tramadol Essential hypertension 54245221 I10 stablebett er with recheck Hypercholesterolemia 136 27449 E78.2 stablerech rohit lab work Type 2 pallavi betes mellitus 56112755 E11.9 A1c is 6.9% [id number] Henok Sierra [facility] Internal Medicine [address] [facility],[place] [address] 06/04/2023 09:52:08 06/04/2023 10:30:41 Type 2 diabetes mellitus 10947921 E11.40 E11.9 continue on medication as prescribed Body mass index 30+ - obesity 377191538 Z68.41 discussed diet and exercise Chronic ob structive pulmonary disease 74766454 J41.0 stable, no interventi on needed Skin ulcer 48857721 L98. 491 resolved [id number] Henok Sierra [facility] Internal Medicine [address] [facility],[place] [address] 07/01/2023 09:10:33 07/02/2023 08:11:09 Uvulitis 985612434 K12.2 agreed to abx and steroid taper after the fact [id number] Henok Sierra [facility] Internal Medicine [address] [facility],[place] [address] 10/28/2023 10:28:56 10/28/2023 11:17:03 Foot ulcer due to type 2 diabetes mellitus 0981617087 100 E11.621 stable Type 2 pallavi betes mellitus 62761863 E11.40 E11.9 stablesees endo Depression screening 171 141470 Z13.31 Diabetes mellitus 254490 09 E11.9 a1c needs recheck Diabetic p eripheral neuropathy 843164330 E11.41 having issues with his insuance with his metformin Chronic ob structive pulmonary disease 22410603 J41.0 stable, no interventi on needed Essential hypertension 28793404 I10 stablebett er with recheck 339506 Henok Sierra, [facility] Internal Medicine [address] [facility],[place] [address] 05/11/2024 10:10:56 05/11/2024 11:56:08 Renewal of prescription 635715452 Z76.0 stable Chronic ob structive pulmonary disease 24408477 J41.0 stable, no interventi on needed Essential hypertension 02468309 I10 stablebett er with recheck Type 2 pallavi betes mellitus 73523764 E11.40 E11.9 stablesees endorecent lab work was 6.5% which is excellent Sleep apnea 07405957 G47 .33 will talk to pul first before following up with us for another sleep study [id number] Henok Sierra [facility] Internal Medicine [address] [facility] [place] [address] 11/03/2024 11:08:43 11/03/2024 11:47:43 Essential hypertension 27150297 I10 82470 stablebett er with recheck Type 2 pallavi betes mellitus 97492957 E11.9 34172128 stablesees endorecent lab work was 6.5% which is excellent Depression screening 171 958745 Z13.31 negative Tobacco de pendence syndrome 62328794 F17.290 discussed Health Concerns Section Related Observation LastModified by Organization Detai ls LastModified Time None Recorded Concern Status LastModified by Organization Details LastModified Time None Recorded Advance Directives Directive None Recorded Payers Insurance Date Sequence Insurance Name Policy Number Policy Byers Covered Member ID Byers Member ID Guarantor Name 11/03/2024 1 [employer] BAILEY [id number] Yogi Mayo [id number] Yogi Mayo 11/03/2024 1 [facility] - DOS ON OR AFTER 2022 - MEDICARE [place]VANTAGE [place] (MEDICARE REPLACEMENT/A DVANTAGE - PPO) Yogi Mayo [id number] Yogi Mayo 11/03/2024 2 [place] [facility] Yogi Mayo [id number] Yogi Mayo 11/03/2024 1 [place] [facility] Yogi Mayo [id number] Yogi Mayo 11/03/2024 1 MEDICARE B-[place]: [facility] Yogi Mayo [id number] Yogi Mayo 11/03/2024 2 [place] [facility] Yogi Mayo [id number] Yogi Mayo Notes Date Note Type Note Provider Name and Address Organization Details Recorded Time 4 text/htm l ROS as noted in the HPI F/U Diabetes the patient reports he is having some mucus in the morning, told to adjust his CPAP moisture settings will see if that works A1c is stable, 7.2%continue on medications BMI is still elevated which pt is aware will set up standing orders for patient no questions, no changes today LISA OLIVEIRA [address] [place], [address], [facility] Internal Medicine 06/04/2023 10:29:53 4 text/htm l ROS as noted in the [facility] The patient is participating in this appointment via telemedicine communication with a phone call/video calling service ([employer])The patient consents to use of these platforms [...] [facility] develops sob or fever LISA OLIVEIRA [address] [place], [address], [facility] Internal Medicine 07/01/2023 15:20:05 4 text/htm l ROS as noted in the HPI f/u 3 mos foot ulcer T2DM: resolved [...] swelling, orthopnea, palpitations COPD: stable LISA OLIVEIRA [address] [place], [address], [facility] Internal Medicine 10/28/2023 10:54:07 5 text/htm l ROS as noted in the HPI 3 mos f/u COPD: saw a nurse through his insurancerecommended following up about his lungs, is currently on his inhalers, just having to work with his T2DM: Patient presents today for follow-up for Type 2 Diabetes Recent lab showed an A1c of 6.5% The patient has been compliant with medicationsThe complications patient is experiencing are n/aThe patient has current concerns about related to their diabetes diagnosis continuing with medicationThe patient has been compliant with lifestyle changes including dietary changes, exercise and healthy habits Discussion about feet reveals negative, no changesDiscussion about eyes reveal negative no changes Treatment plan going forward is continue medications sleep apnea: will f/u with specialist to see if they will order a new sleep study LISA OLIVEIRA [address] [place], [address], [facility] Internal Medicine 05/11/2024 10:50:44 5 text/htm l ROS as noted in the HPI 3 mos fu Patient presents today for follow-up for Type 2 Diabetes Recent lab showed an A1c of 6.7%, mild elevation from previous of 6.5% in Apr The patient has been compliant with medicationsThe complications patient is experiencing are some increase in neuropathyThe patient has current concerns about related to their diabetes diagnosis continued managementThe patient has been compliant with lifestyle changes including dietary changes, exercise and healthy habits Discussion about feet reveals mild decrease in sensation dinorah around the toesDiscussion about eyes reveal normal exam Treatment plan going forward is cont medsreduced processed food intakeincrease activity HTN: today in the office the patient BP is 118/80 L arm sittingthe patient is doing well on the BP medication with no side effects and no adjustment of their medications needed today at the [facility] ed on medicationdenies chest pain, sob, ankle swelling, orthopnea, palpitations copd/former smoker: recommend lung cancer screening, 57 year pack a day smoker, recently quithis sister was just diagnosed with lung cancer The patient denies little pleasure in activities [...] further investigation and treatment for mental health. suggested mucinex for the mucus build upprob a combo of the COPD, allergies and use of a CPAP mask LISA OLIVEIRA [address] [place] [address], [phone], [facility] 11/03/2024 11:42:20
--- OUTSIDE RECORDS SUMMARY | 2025-01-11 07:33 | XMS_ITS | Clinical Summary ---
Author Organization [address] [facility] Address [address] [place] [address] Phone Care Team Providers Care Painter Helper Spray Name Role Phone Physician, Pcp Unknown Primary Care Provider Kimberlee vailable Allergies No known active allergies Medications acetaminophen (TYLENOL 8 HOUR) 650 mg 8 hr tablet Take 1 Tablet by mouth every 8 hours as needed. Active albuterol-budesoni de (Airsupra) 90-80 mcg/actuation HFA aerosol inhaler Inhale into the lungs. Active aspirin 81 mg chewable tablet Take 1 Tablet by mouth daily. Active atorvastatin (LIPITOR) 80 mg tablet Take 1 Tablet by mouth daily. Active clotrimazole (LOTRIMIN) 1 % cream Apply to skin and toenails daily for 12 weeks 4 Active cyclobenzaprine (FLEXERIL) 10 mg tablet Take 1 Tablet by mouth 3 times daily as needed. Active diclofenac (VOLTAREN) 1 % topical gel Apply topically. Active ezetimibe-rosuvast atin (Roszet) 10-10 mg tablet Take by mouth. [...] mouth every 6 hours as needed. Active lidocaine (LIDODERM) 5 % patch Apply 1 patch topically 1 (one) time each day. Remove & discard patch within 12 hours or as directed by MD. 30 each 2 5 025 lidocaine (XYLOCAINE) 4 % external solutionIndication s:Diabetic mononeuropathy simplex ([facility] V24, [facility] V28) Apply topically 1 (one) time for 1 dose. 50 mL 5 025 Active Problems Problem Noted Date Diagnosed Date Diabetic neuropathy ([facility] V24, [facility] V28) 0 04/12/2023 Essential hypertension 04/12/2023 Foot callus 04/12/2023 Foot ulcer due to secondary DM ([facility] V24, [facility] V28) 04/12/2023 Hypercholesterolemia 04/12/2023 Low back pain 04/12/2023 Lung disease 04/12/2023 Obesity 04/12/2023 Tobacco dependence 04/12/2023 Type 2 diabetes, controlled, with cellulitis of foot ([facility] V24, [facility] V28) 04/12/2023 Vascular disorder 04/12/2023 Vertigo 04/12/2023 Encounters Date Type Department Care Team Description 12/22/2024 10:00 AM EDT Office Visit Orthopedic Surgery - [address] [place] [address] PalomoJorge DPM Diabetic mononeuropathy simplex (CMS/HCC V24, CMS/HCC V28) (Primary Dx); Primary osteoarthritis of both feet; Dermatophytosis of nail; Pain in toe of left foot; Pain in toe of right foot 10/19/2024 Telephone Orthopedic Surgery [address] [address] Jorge Palomo DPM from Last 3 Months Medical History Medical History Date Comments Diabetic neuropathy (CMS/HCC V24, CMS/HCC V28) 04/12/2023 DX:Diabetic neuropathy ([facility]) Hypercholesterolemia 04/12/2023 DX:Hypercho lesterolemia Obesity 04/12/2023 DX:Obesity Body mass index 30.0-30.9, adult 04/12/2023 DX:Body mass index 30.0-30.9, adult Tobacco dependence 04/12/2023 DX:Tobacco de pendence Essential hypertension 04/12/2023 DX:Essent ial hypertension Vascular disorder 04/12/2023 DX:Vascular di sorder Lung disease 04/12/2023 DX:Lung disease Foot callus 04/12/2023 DX:Foot callus Low back pain 04/12/2023 DX:Low back pain Vertigo 04/12/2023 DX:Vertigo Foot ulcer due to secondary DM (CMS/HCC V24, CMS/HCC V28) 04/12/2023 DX:Foot ulcer due to seconda ry DM ([facility]) Social History Tobacco Use Types Packs/Day Years Used Date Smoking Tobacco: Never Assessed Sex and Gender Information Value Date Recorded Sex Assigned at Not on file Legal Sex Male 8:38 PM EST Gender Identity Not on file Sexual Orientation Not on file Obstetrics History Last Filed Vital Signs Vital Sign Reading Time Taken Comments Blood Pressure - - Pulse - - Temperature - - Respiratory Rate - - Oxygen Saturation - - Inhaled Oxygen Concentration - - Weight 122 kg (270 lb) 05/13/2024 10:25 AM EST Height 172.7 cm (5' 7.99 ) 05/13/2024 10:[address] Body Mass Index 41.06 05/13/2024 10:25 AM EST Plan of Treatment Upcoming Encounters Date Type Department Care Team (Late st Contact Info) Description 03/23/2025 10:00 AM EST Office Visit Orthopedic Surgery - [place] [address] [place] [address] [place] [phone] Jorge Palomo, DPRishabh [address] [place] [phone] Health Maintenance Due Date Last Done Comments Colorectal Cancer Screening: Colonoscopy 1955 Diabetes: Annual GFR (Glomerular Filtration Rate) 1956 Diabetes: Annual Foot Exam 1966 Diabetes: Annual Retina Eye Exam 1966 Pneumococcal Vaccine: 50+ Years (2 of 2 - PCV) 12/31/2017 12/31/2016 DTaP,Tdap,and Td Vaccines (2 - Td or Tdap) 08/07/2022 08/07/2012 Abdominal Aortic Aneurysm (AAA) Screen 04/05/2023 Cholesterol Screening (Lipid Panel) 04/05/2023 Falls Risk Assessment 04/05/2023 Hepatitis C Screening 04/05/2023 Social Influencers of Health Screening 04/05/2023 Diabetes: Annual Urine Albumin-Creatinine Ratio (uACR) 04/24/2023 Diabetes: Blood Sugar Control Test (HGBA1C) 04/24/2023 Hypertension/CHF/CAD Annual BMP Blood Test 04/24/2023 Depression Screening 03/11/2024 COVID-19 Vaccine ( season) 2024 12/04/2023, 01/15/2022, 03/06/2021, Additional history exists Zoster Vaccines Completed 02/09/2023, 08/24/2022 Influenza Vaccine Completed 10/23/2024, , 11/10/2022, Additional history exists RSV Immunization Adult Patients Completed 10/26/2024 HIB Vaccines Aged Out No longer eligi ble based on patient's age to complete this topic HPV Vaccines Aged Out No longer eligi ble based on patient's age to complete this topic Hepatitis A Vaccines Aged Out No long er eligible [...] patient's age to complete this topic Meningococcal B Vaccine Aged Out No l onger eligible based on patient's age to complete this topic RSV Immunization Patients Under 20 months Aged Out No longer eligible based on patient's age to complete this topic Varicella Vaccines Aged Out No longer eligible based on patient's age to complete this topic Insurance MEDICAID - [place] [facility] [address] [place] [address] Care Teams Painter Helper Spray Relationship Specialty Start Date End Date Physician, Pcp Unknown PCP - General 01/14/24
--- OUTSIDE RECORDS SUMMARY | 2025-01-11 07:33 | XMS_ITS | Patient Health Record ---
Author Organization [facility] Address [address] [place] [address] Care Team Providers Care Paste Up Copy Camera Operator Name Role Phone Henok Sierra Primary [...] at 5:00 p.m. the day before the procedure; Duration: 1 day 01/11/2020 Active metFORMIN HCl 1,000mg [...] Risk Notes Problem Change in bowel habit (62921118) Change in bowel habits (R19.4) Active confirmed Plan Of Treatment Future Test Test Name Order Date COLONOSCOPY 01/11/2020 Insurance Providers Payer Name Payer Address Payer Phone Subscriber Number Group Number Insured Name Patient Relationship to Insured Coverage Start Date Coverage End Date MEDICARE OF [place] [address] [place] [address] [id number] FITZ NORRIS Self - patient is the insured MEDICAID OF [facility] [address] [place] [address] [id number] FITZ NORRIS Self - patient is the insured Medical (General) History Medical History History ICD Code hypertension elevated cholesterol coronary disease with history of HI and stent placement diabetes mellitus COPD Surgical History Surgery Date(Month/Year) cardiac catheterization with stent place ment right carotid endarterectomy
[2025-01-11 10:01] LABS: MANUAL DIFF FLAG NO
[2025-01-11 10:09] LABS: Hematocrit 42.4 % (42.0-52.0); Hemoglobin 13.8 g/dl (14.0-18.0); Imm Gran Abs Auto 0.03 X10*3/uL (0.00-0.03); Imm Gran Pct Auto 0.5 % (0.0-0.4); Lymphocytes Absolute Auto 1.9 X10*3/uL (1.2-4.9); Mean Corpuscular HGB Conc 32.5 g/dl (31.0-36.0); Mean Corpuscular Hemoglobin 27.7 pg (27.0-33.0); Mean Corpuscular Volume 85.1 fL (80.0-98.0); NRBC Abs Auto 0.000 X10*3/uL (0.0-0.012); NRBC Pct Auto 0.0 /100WBC (0.0-0.2); Platelet Count 206 X10*3/uL (160-400); Red Blood Count 4.98 X10*6/uL (4.60-5.80); White Blood Count 6.1 X10*3/uL (4.8-10.8)
[2025-01-11 10:49] LABS: Alanine Aminotransferase 28 U/L (0-40); Albumin Level 4.4 g/dL (3.5-5.0); Alkaline Phosphatase 88 U/L (39-117); Anion Gap 11 (12-20); Aspartate Amino Transferase 22 U/L (5-37); Blood Urea Nitrogen 18 mg/dL (9-16); Calcium 9.2 mg/dL (8.4-10.2); Carbon Dioxide 29 mmol/L (22-29); Chloride 102 mmol/L (96-108); Cholesterol 100 mg/dL (<200); Estimated Glomerular Filt Rate > 60; HDL Cholesterol 36 mg/dL (>40); Potassium 4.0 mmol/L (3.3-5.1); Sodium 138 mmol/L (135-145); Total Protein 6.9 g/dL (6.5-8.0); Triglycerides 101 mg/dL (<150)
== END 2025-01-11 07:30 | disposition home or self-care (01) ==
LOC: HO.10HDL 07:29
PROVIDERS: Visit Provider Physician Assistant
DX: E11.9 Type 2 diabetes mellitus without complications (principal)
CPT/HCPCS: 36415; 80053; 80061; 83036; 85025

== ENCOUNTER 2025-03-05 09:56 | Outpatient (AMB) | payer MEDICARE, MEDICAID, SELFPAY ==
--- OUTSIDE RECORDS SUMMARY | 2025-03-05 10:00 | XMS_ITS | Clinical Summary ---
Author Organization [facility] Address [address] [address] Phone Care Team Providers Care Rn Tele Name Role Phone Henok Sierra Primary Care Provider [phone] Allergies No known active allergies Medications aspirin [...] file Insurance MEDICARE PART A & B [facility] MEDICARE PART A & [place] A & B [facility] MEDICARE PART A & [place] & B [facility] MEDICARE PART A & [place] MEDICARE PART A & B HEALTH MEDICARE PART A & [place]IC[place] [address] Care Teams Rn Tele Relationship Specialty Start Date End Date Henok Sierra DO [email or web address] PCP - General Internal Medicine 09/29/18 Additional Source Comments The information contained in this document represents components of the legal health record. It is not the complete legal health record.[facility]
--- OUTSIDE RECORDS SUMMARY | 2025-03-05 10:00 | XMS_ITS | Data Portability ---
Author Organization [facility], Telehealth Patient Home Address [address] [place] [address] Assessment Encounter Date Assessment Date Assessment LastModified [...] recorded. Lab CMP, serum or plasma 2024 [facility], [address] [place] [address], [address], 13:38:10 hemoglobin A1c, QN, blood 2024 025 [facility], [address] [place] [address], 385[address], 13:38:11 CBC w/ auto diff 2024 025 [facility], [address] [place] [address], 46[address], 13:38:11 lipid panel, blood 2024 025 [facility], [address] [place] [address], 56451, 13:38:11 CMP, serum or plasma 2024 025 [facility], [address] [place] [address], 13934, 13:38:10 lipid panel, blood 2024 026 [facility], [address] [place] [address], 50947, 13:38:11 hemoglobin A1c, QN, blood 2024 025 [facility], [address] [place] [address], 25207, 13:38:11 CBC w/ auto diff 2024 025 [facility], [address] [place] [address], 45798, 13:38:11 CMP, serum or plasma 2024 025 [facility], [address] [place] [address], 41861, 10:51:33 hemoglobin A1c, QN, blood 2024 025 [facility], [address] [place] [address], 33014, 10:51:33 lipid panel, blood 2024 025 [facility], [address] [place] [address], 84645, 10:51:33 CBC w/ auto diff 2024 025 [facility], [address] [place] [address], 25645, 5 10:51:33 CMP, serum or plasma 2023 024 [facility], [address] [place] [address], 29812, 5 19:05:26 lipid panel, blood 2023 024 [facility], [address] [place] [address], 39518, 4 10:54:08 hemoglobin A1c, QN, blood 2023 024 [facility], [address] [place] [address], 16474, 4 10:54:08 CBC w/ auto diff 2023 024 [facility], [address] [place] [address], 549[address], 4 10:54:08 CMP, serum or plasma 2024 024 [facility], [address] [place] [address], 722[address], 5 19:05:26 CMP, serum or plasma 2023 024 [facility], [address] [place] [address], 40582, 4 10:30:12 lipid panel, blood 2023 024 [facility], [address] [place] [address], 93673, 4 10:30:12 hemoglobin A1c, QN, blood 2023 024 [facility], [address] [place] [address], 05461, 4 10:30:12 CBC w/ auto diff 2023 024 [facility], [address] [place] [address], 72522, 4 11:42:26 CBC w/ auto diff 2023 024 [facility], [address] [place] [address], 62217, 4 11:42:26 Referral None recorded. Procedures None recorded. Surgeries None recorded. Imaging LDCT, chest, for lung cancer screening - patient has a 57 year history of smoking a pack a day smoker, stopping smoking only 4 years ago 2024 025 [facility], [address] [place] [address], [address], 5 08:27:22 Medication Orders prednisone 10 mg tablet 2023 025 [facility][id number], [address] [place], [address], 5 10:46:27 amoxicilli n 875 mg-potassi um clavulanat e 125 mg tablet 2023 024 [facility][id number], [address] [place], [address], 4 10:45:15 Lantus Solostar U-100 Insulin 100 unit/mL (3 mL) subcutaneo us pen 2023 024 [facility][id number], [address] [place], [address], 4 10:23:29 albuterol sulfate HFA 90 mcg/actuat ion aerosol inhaler 2023 024 [facility][id number], [address] [place], [address], 4 10:26:37 Patient TargetsNo targets recorded. Patient InstructionsNo instructions recorded. Reason for Referral None Reported. Results Created Date Observation Date Name Description Value Unit Range Abnormal Flag Note LastModifiedBy Organization Detail LastModifiedTime 06/23/19 24 06/22/2023 , echo ardio gram No observ ation record ed. [email or web address] Not Available 2023 08:49:04 02/27/20 24 02/21/2024 myoca rdial perfu evans study w/ eject ion fract ion (PROC ) No observ ation record ed. [facility] (Medical Records) [address] [place], [address], 02/27/2024 19:24:57 02/14/20 25 02/12/2025 LDCT, chest , for lung cance r vaibhav ramirez No observ ation record ed. [email or web address] [place] [address] [address] [place], [address], 02/15/2025 08:26:57 Result Notes None recorded. Problems Name Problem SNOMED Code Status Onset Date Resolution Date Notes Provider Name and Address Organization Details Recorded Time Diabetes mellitus 29556112 Active 2017 Not Available [facility] 3 10:06:37 Obesity 489906038 Active 2017 Not Available [facility] 3 10:06:37 Chronic obstructi ve pulmonary disease 15844425 Active 2017 Not Available [facility] 3 10:06:37 Vertigo 403350863 Active 2017 Not Available [facility] 3 10:06:37 Essential hypertens ion 30042749 Active 2017 LISA OLIVEIRA [address] [facility], [place], [address], [facility] 5 08:48:44 Hyperchol esterolem ia 35628160 Active 2017 Not Available [facility] 3 10:06:37 Vascular disorder 45836980 Active 2017 Not Available [facility] 3 10:06:37 Body mass index 30+ - obesity 124011489 Active 2018 Not Available [facility] 3 10:06:37 Type 2 diabetes mellitus 52926318 Active 2020 LISA OLIVEIRA [address] [place], [address], [facility] 5 08:48:57 Tobacco dependenc e syndrome 81492320 Active 2021 Not Available [facility] 3 10:06:37 Diabetic periphera l neuropath y 019134833 Active 2022 Not Available [facility] 3 10:06:37 Foot callus 253617028 Active 2022 Not Available [facility] 3 10:06:37 Low back pain 949268886 Active 2022 LISA OLIVEIRA [address] [place], [address], [facility] 3 10:22:49 Foot ulcer due to type 2 diabetes mellitus 677104695299 0 Active 2022 LISA OLIVEIRA [address] [place] [address], [address], [facility] 3 15:27:14 Skin ulcer 29195145 Active 2023 LISA OLIVEIRA [address] [place], [address], [facility] 4 10:24:36 Uvulitis 054334943 Active 2023 LISA OLIVEIRA [address] [place], [address], [facility] 4 15:14:36 Sleep apnea 07369128 Active 2024 LISA OLIVEIRA [address] [place], [address], [facility] 5 10:38:39 Problem of low back 384788345 Active 2024 LISA OLIVEIRA [address] [place], [address], [facility] 5 13:31:02 Problem Notes None recorded. Procedures Surgical History Date Name Laterality Status Provider Name and Address Organization Details Recorded Time 2 Colonoscopy completed Michelle Cook [facility] 04/07/2018 08:21:02 Imaging Results None recorded. Procedure Notes None recorded. Medical Equipment None Reported. Allergies Allergen ID Allergen Name Allergen Category Reaction Reaction Severity Criticality Documentation Date Start Date Code Code System Note Provider Name and Address Organization Details Recorded Time 85733 lisinopri l medicatio n Not available Not available Not available 02/26/2025 36598 RxNorm Not Available [facility] - External Data Service - prod 5 04:21:48 Medications Name Sig Start Date Stop Date [...] mg tablet TAKE 1 TABLET BY MOUTH ONCE DAILY active Not Available Not Available No [...] TAKE 2 CAPSULES BY MOUTH EVERY DAY active Not Available Not Available No t Available meclizine 25 mg tablet TAKE 1 TABLET [...] MOUTH TWICE A DAY FOR 2 WEEKS active Not Available Not Available No t Available amoxicillin 875 mg-potassiu m clavulanate 125 mg [...] No t Available [employer] Sumi 14 Day [place] CHECK GLUCOSE LEVEL WITH READER 3 TIMES [...] (BMI) Body weight Heart rate Oxygen saturation Systolic And Diastolic Provider Name and Address Organization Details Last Updated DateTime 5 166.37 cm 43.3 kg/m2 137359. 18 g 80 /min 95 % 118/78 mm[Hg] [facility] 5 10:30:43 Date Recorded Body height Body mass index (BMI) Body weight Heart rate Oxygen saturation Systolic And Diastolic Provider Name and Address Organization Details Last Updated DateTime 4 166.37 cm 44.9 kg/m2 294930. 31 g 60 /min 95 % 120/68 mm[Hg] Angie Pillai [facility] 4 10:03:11 Date Recorded Body height Body mass index (BMI) Body weight Heart rate Oxygen saturation Systolic And Diastolic Provider Name and Address Organization Details Last Updated DateTime 4 166.37 cm 44 kg/m2 770017. 19 g 72 /min 95 % 130/80 mm[Hg] Fariha Pena [facility] Internal [facility] 4 10:33:25 Date Recorded Body height Body mass index (BMI) Body weight Heart rate Oxygen saturation Systolic And Diastolic Provider Name and Address Organization Details Last Updated DateTime 5 166.37 cm 42.4 kg/m2 582994. 63 g 70 /min 97 % 118/80 mm[Hg] Fariha Pena [facility] Internal [facility] 5 11:22:07 Social History Question Answer Notes LastModified by Organizat ion Details LastModified Time Tobacco Smoking Status Former Smoker Not Available [facility] 01/12/2020 03:36:23 What Was The Date Of Your Most Recent Tobacco Screening? 11/03/2024 [email or web address] Information not available 11/03/2024 Sex: Unknown Functional Status Question Answer Note LastModified by Organization D etails LastModified Time Do you or have you ever used any other forms of tobacco or nicotine? No [email or web address] Information not available 06/04/2023 Mental Status None recorded. Family History Nothing Reported. Medical History No medical history recorded. Immunizations Vaccine Type Date Status Note Provider Nam e and Address Organization Details Recorded Time COVID-19, mRNA, LNP-S, PF, 100 mcg/0.5mL dose or 50 mcg/0.25mL dose 1 completed Rohini josé [facility] Internal [facility] 09/07/2020 12:02:47 Td (adult) 3 completed Rohini josé [facility] Internal [facility] 09/07/2020 12:03:07 Influenza, split virus, quadrivalent, preservative 1 completed Henok Sierra, DO [address] [place] [address], [place], [address], [facility] 11/26/2020 13:24:41 Influenza, split virus, quadrivalent, preservative 8 completed Michelle Cook [facility] 12/09/2017 08:56:48 COVID-19, mRNA, LNP-S, PF, 100 mcg/0.5mL dose or 50 mcg/0.25mL dose 1 completed Reina Monroy [facility] 03/08/2021 11:03:32 Pneumococcal Conjugate, unspecified formulation 7 completed Chasity Galvan, ANIKA, S [address] [place] [address], [address], [facility] 12/30/2017 09:21:11 Pneumococcal Conjugate, unspecified formulation 9 completed Chasity Galvan, ANIKA, S [address] [place] [address], [address], [facility] 12/30/2017 09:21:37 COVID-19, mRNA, LNP-S, PF, 100 mcg/0.5mL dose or 50 mcg/0.25mL dose 2 completed Marci Ghosh [facility] 01/17/2022 13:28:00 Influenza, split virus, quadrivalent, preservative 2 completed Marci Ghosh [facility] 01/17/2022 13:28:09 influenza, unspecified formulation 3 completed Bertram Sierra [facility] 11/12/2022 13:57:37 influenza, unspecified formulation 4 completed Fariha Pena [facility] 12/06/2023 11:28:08 SARS-COV-2 (COVID-19) vaccine, UNSPECIFIED 4 completed Fariha Pena [facility] 12/06/2023 11:28:15 influenza, unspecified formulation 5 completed Bertram Sierra [facility] 10/26/2024 08:23:36 influenza, unspecified formulation 5 completed Fariha Pena [facility] 10/28/2024 11:01:19 Influenza, split virus, quadrivalent, preservative 0 completed Henok Sierra DO [address] [place], [address], [facility] 01/01/2020 08:30:52 COVID-19, mRNA, LNP-S, PF, 100 mcg/0.5mL dose or 50 mcg/0.25mL dose 1 [facility] 08/31/2020 08:47:56 Past Encounters Encounter ID Performer Location Encounter Start Date Encounter Closed Date Diagnosis/Indication Diagnosis SNOMED-CT Code Diagnosis ICD10 Code Diagnosis IMO Codes Diagnosis Note [id number] Henok Sierra DO [facility] [address] [facility],[place] [address] 11/04/2017 14:09:15 11/04/2017 16:06:59 Chronic obstructive pulmonary disease 94268081 J44.9 Hypercholesterolemia 136 74327 E78.00 Essential hypertension 83040806 I10 Diabetes mellitus 682368 09 E11.9 Pain in left knee 028718 8830 41627 M25.562 [id number] Henok Sierra [facility] [address] [facility],[place] [address] 12/30/2017 08:58:32 12/30/2017 12:33:37 Benign prostatic hyperplasia with outflow obstruction 995522352 N40.1 was not taking- restart Hypercholesterolemia 136 13653 E78.00 HDL 33, encourage activity Chronic ob structive pulmonary disease 65840607 J44.9 stable- no recent exacerbati on Vascular disorder 421374 09 I99.9 up to date cardiologi st and vascular Essential hypertension 37763550 I10 stable Diabetes mellitus 533625 09 E11.9 A1C 7.2-follow Active or passive immunization 327001611 Z23 had flu vaccine, up to date pneumonia vaccines [id number] Henok Sierra DO [facility] [address] [facility], [place] [address] 04/07/2018 13:30:45 04/07/2018 15:20:50 Diabetes mellitus 07950884 E11.9 A1C 7.2-follow Chronic ob structive pulmonary disease 08218813 J44.9 stable- no recent exacerbati on Cellulitis 941061592 L03 .90 if worse or no better-com e back in Hypercholesterolemia 136 10791 E78.00 HDL 33, encourage activity Essential hypertension 20563247 I10 stable Vascular disorder 128059 09 I99.9 up to date cardiologi st and vascular [id number] Henok Sierra [facility] [address] [facility],[place] [address] 08/25/2018 13:52:00 08/25/2018 14:40:43 Diabetes mellitus 53166285 E11.9 a1c 7.6 (up from 7.2) has lost weight though through keto diet recommende d to monitor blood sugar closely on this diet as he may go low with carb restrictio n and insulin continue current regimen continue weight loss Chronic ob structive pulmonary disease 58714964 J44.9 stable- no recent exacerbati on Hypercholesterolemia 136 26805 E78.00 HDL 36, up from 33 LDL well within goal range Essential hypertension 99803773 I10 stable Vascular disorder 087291 09 I99.9 s/p carotid endarterec roz stent in heart up to date cardiologi st and vascular Body mass index 30+ - obesity 058594737 Z68.41 losing weight Active or passive immunization 932967537 Z23 Achilles bursitis 202605 002 M76.62 nsaids + ortho referral Benign pro static hyperplasia 584200443 N40.0 still waking up at least 5-6 times per night, which is actually improved from previously [id number] Henok Sierra [facility] [address] [facility],[place] [address] 01/12/2019 10:56:24 01/12/2019 11:58:39 Diabetes mellitus 41841628 E11.9 a1c is 7.2, down from 7.6 previously continue current regimen continue weight loss Chronic ob structive pulmonary disease 69965454 J44.9 stable- still quite a bit of exertional sob no recent exacerbati ons will trial breo continue incruse and ventolin as needed has quit smoking lives with a smoker Hypercholesterolemia 136 08350 E78.00 stable Essential hypertension 47409129 I10 stable Vascular disorder 143486 09 I99.9 s/p carotid endarterec roz stent in heart up to date cardiologi st and vascular Body mass index 30+ - obesity 052703202 Z68.41 losing weight Active or passive immunization 363109650 Z23 Achilles bursitis 717987 002 M76.62 saw ortho, will hold off on further therapy may consider second op in not improvemen t by march Benign pro static hyperplasia 120548593 N40.0 still waking up at least 5-6 times per night, despite the flomax Hemorrhoids 00935715 K64 .9 if bleeding persists after 2-3 weeks, plan is to see gi 2/2 constipati on 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 1175501948 96232 E08.42 continue diabetic shoe wear Foot callus 911728521 L9 8.499 continue diabetic shoe wear [id number] Henok Sierra DO [facility] [address] [facility],[place] [address] 06/01/2019 09:47:09 06/01/2019 10:27:36 Chronic obstructive pulmonary disease 60355023 J44.9 continue breo+ incruse and very rare need for rescue inhaler has quit smoking lives with a smoker Diabetes mellitus 732091 09 E11.9 a1c is up to 7.9 would like to work on diet Hypercholesterolemia 136 92998 E78.00 stable Essential hypertension 29169140 I10 mildly elevated Vascular disorder 624126 09 I99.9 s/p carotid endarterec roz stent in heart up to date cardiologi st and vascular Body mass index 30+ - obesity 373465094 Z68.41 plan to work on diet for better dm control and weight loss Achilles bursitis 556686 002 M76.62 saw ortho, will hold off on further therapy may consider second op in not improvemen t by march Benign pro static hyperplasia 452961395 N40.0 seeing urology Hemorrhoids 38562325 K64 .9 still hvaing constipati on no more blood in the stool would like to see GI 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 5355443679 85949 E08.42 continue diabetic shoe wear Foot callus 921781143 L9 8.499 continue diabetic shoe wear Type 2 pallavi betes mellitus 69635771 E11.9 [id number] Henok Sierra DO [facility] [address] [facility] [place] [address] 09/01/2019 09:06:20 09/01/2019 09:43:21 Hypercholesterolemia 39373497 E78.00 didn't get it done will give him paperwork again Diabetes mellitus 016062 09 E11.9 a1c is down Chronic ob structive pulmonary disease 46958752 J44.9 stable Diabetic p eripheral neuropathy 444521207 E11.40 would like to start gabapentin for neuropathy for his feet [id number] Henok Sierra [facility] [address] [facility], [place] [address] 12/28/2019 08:59:26 12/28/2019 09:41:52 Chronic obstructive pulmonary disease 16096867 J44.9 stable Essential hypertension 98414269 I10 fine today will continue to monitor Diabetes mellitus 785287 09 E11.9 a1c needs recheck [id number] Henok Sierra [facility] [address] [facility], [place] [address] 03/15/2020 08:31:37 03/15/2020 10:41:45 Chronic obstructive pulmonary disease 24795610 J44.9 will treat his symptoms in the mean time, he is out of his inhalers so will supply him with them for COPD control Acute exac erbation of chronic obstructive pulmonary disease 765168206 J44.1 will treat with pred taper and abx to mitigate his symptoms until he can be tested will fu with results will call if symptoms worsen Dyspnea 128735260 R06.00 will see if taper works with increasing his ability to breath, to breath more easily [id number] Henok Sierra [facility] [address] [facility],[place] [address] 05/16/2020 09:36:31 05/16/2020 10:20:26 Chronic obstructive pulmonary disease 68540827 J44.9 stable, no interventi on needed Type 2 pallavi betes mellitus 91305155 E11.9 stable, no interventi on Essential hypertension 60583137 I10 will recheck at next appt Dyspnea 465023713 R06.00 pred taper worked excellent while patient had COVID, will check lungs to see if any longer term damage still having very mild sob [id number] Henok Sierra [facility] [address] [facility] [place],[address] [place] [address] 09/26/2020 14:13:27 09/26/2020 16:23:46 Type 2 diabetes mellitus 40181770 E11.9 stable, no interventi on Essential hypertension 15348451 I10 will recheck at next appt Chronic ob structive pulmonary disease 68224170 J44.9 stable, no interventi on needed Vertigo 148199075 R42 will fu with PT which he was given referral from hospitalwi ll give him the exercise to try at home by himself [id number] Henok Sierra, [facility] [address] [facility],[address] [place] [address] 01/30/2021 09:56:26 01/30/2021 11:18:15 Hypercholesterolemia 08546991 E78.2 didn't get it done will give him paperwork again Chronic ob structive pulmonary disease 27934853 J41.0 stable, no interventi on needed Type 2 pallavi betes mellitus 04399056 E11.9 stable, no interventi on given free style free sample Essential hypertension 38887324 I10 will recheck at next appt Diabetic p eripheral neuropathy 412778744 E11.40 having issues with his insuance with his metformin Body mass index 30+ - obesity 488523209 Z68.41 discussed diet and exercise Foot callus 016228938 L9 8.499 stable Neuropathy 149943705 G62 .89 will increase the gabapentin to 300 mg BID [id number] Henok Sierra [facility] [address] [facility] [place] [address] 04/12/2021 09:14:21 04/17/2021 10:51:46 Diabetic peripheral neuropathy 141325393 E11.40 having issues with his insuance with his metformin Body mass index 30+ - obesity 958552820 Z68.41 discussed diet and exercise Chronic ob structive pulmonary disease 79971779 J41.0 stable, no interventi on needed Foot callus 564858513 L9 8.499 stable Type 2 pallavi betes mellitus 85783361 E11.9 stable, no interventi ongiven free style free sample Strain of supraspinatus muscle AND/OR tendon 24606235 S46.012A will start on medication [id number] Henok Sierra [facility] [address] [facility] [place] [address] 05/15/2021 11:42:16 05/16/2021 08:18:27 Seborrheic keratosis 943997841 L82.1 will fu with derm Type 2 pallavi betes mellitus 72201871 E11.9 stable, no interventi ongiven free style free sample Essential hypertension 20563011 I10 stable Vertigo 356760814 R42 resolved [id number] Henok Sierra [facility] [address] [facility],[place] [address] 06/19/2021 13:28:12 06/20/2021 14:55:55 Type 2 diabetes mellitus 19282307 E11.9 stable, no interventi ongiven free style free sample Essential hypertension 54938372 I10 stable Vertigo 839228789 R42 PT tomorrow Tobacco de pendence syndrome 32778520 F17.290 discussed Active or passive immunization 778625942 Z23 advised [id number] Henok Sierra [facility] [address] [facility],[place] [address] 09/25/2021 15:33:57 09/25/2021 15:58:50 Chronic obstructive pulmonary disease 56980749 J41.0 stable, no interventi on needed Essential hypertension 69706703 I10 stable Type 2 pallavi betes mellitus 10385789 E11.9 stable, no interventi ongiven free style free sample Body mass index 30+ - obesity 185962350 Z68.41 discussed diet and exercise [id number] Henok Sierra [facility] [address] [facility],[place] [address] 01/08/2022 14:32:18 01/09/2022 08:33:50 Diabetes mellitus 12581557 E11.9 a1c needs recheck Essential hypertension 08007907 I10 stable Hypercholesterolemia 136 00718 E78.2 stable [id number] Henok Sierra [facility] [address] [facility] [place] [address] 04/10/2022 08:15:36 04/13/2022 08:44:26 Chronic obstructive pulmonary disease 09278499 J41.0 stable, no interventi on needed Essential hypertension 28073121 I10 stable Type 2 pallavi betes mellitus 57237933 E11.9 needs to work on diet Hypercholesterolemia 136 73303 E78.2 stable [id number] Henok [facility] [address] [place] [address] 07/09/2022 09:47:19 07/09/2022 17:15:24 Hypercholesterolemia 61040398 E78.2 stable Chronic ob structive pulmonary disease 24399148 J41.0 stable, no interventi on needed Essential hypertension 18675804 I10 stable Diabetes mellitus 651778 09 E11.9 a1c needs recheck Obesity 694042329 E66.01 stable Type 2 pallavi betes mellitus 19117206 E11.9 needs to work on diet Diabetic p eripheral neuropathy 925533754 E11.41 having issues with his insuance with his metformin Body mass index 30+ - obesity 244180195 Z68.41 discussed diet and exercise Foot callus 742299770 L9 8.499 stable [id number] Henok [facility] [address] [place], [facility] [place] [address] 09/17/2022 10:11:43 09/18/2022 09:09:14 Hypercholesterolemia 26814824 E78.2 stable Obesity 739829773 E66.01 stable Type 2 pallavi betes mellitus 55517373 E11.9 A1c is 6.9% Essential hypertension 13665500 I10 stablebett er with recheck [id number] Henok [facility] [address] [facility] [address] [place] [facility] [place] [address] 12/31/2022 10:03:05 12/31/2022 12:33:38 Low back pain 981548660 M54.59 will start on tramadol Essential hypertension 68718210 I10 stablebett er with recheck Hypercholesterolemia 136 53643 E78.2 stablerech rohit lab work Type 2 pallavi betes mellitus 40928666 E11.9 A1c is 6.9% [id number] Henok [facility] [address] [facility],[place] [address] 06/04/2023 09:52:08 06/04/2023 10:30:41 Type 2 diabetes mellitus 33800368 E11.40 E11.9 continue on medication as prescribed Body mass index 30+ - obesity 366201721 Z68.41 discussed diet and exercise Chronic ob structive pulmonary disease 79556644 J41.0 stable, no interventi on needed Skin ulcer 29187129 L98. 491 resolved [id number] Henok [facility] [address] [facility],[place] [address] 07/01/2023 09:10:33 07/02/2023 08:11:09 Uvulitis 356186997 K12.2 agreed to abx and steroid taper after the fact [id number] Henok [facility] [address] [facility],[place] [address] 10/28/2023 10:28:56 10/28/2023 11:17:03 Foot ulcer due to type 2 diabetes mellitus 2690693087 100 E11.621 stable Type 2 pallavi betes mellitus 07872473 E11.40 E11.9 stablesees endo Depression screening 171 162606 Z13.31 Diabetes mellitus 467815 09 E11.9 a1c needs recheck Diabetic p eripheral neuropathy 875175646 E11.41 having issues with his insuance with his metformin Chronic ob structive pulmonary disease 08740544 J41.0 stable, no interventi on needed Essential hypertension 37201169 I10 stablebett er with recheck [id number] Henok [facility] [address] [facility],[place] [address] 05/11/2024 10:10:56 05/11/2024 11:56:08 Renewal of prescription 409852878 Z76.0 stable Chronic ob structive pulmonary disease 72998952 J41.0 stable, no interventi on needed Essential hypertension 87621462 I10 stablebett er with recheck Type 2 pallavi betes mellitus 35905343 E11.40 E11.9 stablesees endorecent lab work was 6.5% which is excellent Sleep apnea 88395959 G47 .33 will talk to pulm first before following up with us for another sleep study [id number] DO Mik[facility] [address],[place] [address] 11/03/2024 11:08:43 11/03/2024 11:47:43 Essential hypertension 53731669 I10 77466 stablebett er with recheck Type 2 pallavi betes mellitus 42500752 E11.9 70181295 stablesees endorecent lab work was 6.5% which is excellent Depression screening 171 082968 Z13.31 negative Tobacco de pendence syndrome 57470047 F17.290 discussed Health Concerns Section Related Observation LastModified by Organization Detai ls LastModified Time None Recorded Concern Status LastModified by Organization Details LastModified Time None Recorded Advance Directives Directive None Recorded Payers Insurance Date Sequence Insurance Name Policy Number Policy Byers Covered Member ID Byers Member ID Guarantor Name 02/23/2025 1 [facility] [id number] Yogi Mayo [id number] Yogi Mayo 11/03/2024 1 [facility] - DOS ON OR AFTER 2022 - MEDICARE [place]VANTAGE [place] (MEDICARE REPLACEMENT/A DVANTAGE - PPO) Yogi Mayo [id number] Yogi Mayo 11/03/2024 2 [place] [facility] Yogi Mayo [id number] Yogi Mayo 11/03/2024 1 [place] [facility] Yogi Mayo [id number] Yogi Mayo 11/03/2024 1 [place] B[place] [employer] Yogi Mayo [id number] Yogi Mayo 02/23/2025 2 [place] [facility] Yogi Mayo [id number] Yogi Mayo Notes Date Note Type Note [...] questions, no changes today LISA OLIVEIRA [address] [place], [address], [facility] 06/04/2023 10:29:53 4 text/htm l ROS as noted in the [facility] The patient is participating in this appointment via telemedicine communication with a phone call/video calling service ([email or web address])The patient consents to use of these platforms [...] [facility] develops sob or fever LISA OLIVEIRA [address] [place], [address], [facility] 07/01/2023 15:20:05 4 text/htm l ROS as noted in the [facility] f/u 3 mos foot ulcer T2DM: resolved [...] orthopnea, palpitations COPD: stable LISA OLIVEIRA [address] [place], [address], [facility] Internal [facility] 10/28/2023 10:54:07 5 text/htm l ROS as noted in the [facility] 3 mos f/u COPD: [facility] lungs, is currently [...] order a new sleep study LISA OLIVEIRA [address] [place] [address], [address], [facility] 05/11/2024 10:50:44 5 text/htm l [...] of their medications needed today at the [facility] ed on medicationdenies chest pain, [...] use of a CPAP mask LISA OLIVEIRA [address] [facility], [place], [address], [facility] 11/03/2024 11:42:20
--- OUTSIDE RECORDS SUMMARY | 2025-03-05 10:00 | XMS_ITS | Clinical Summary ---
Author Organization [facility] Address [address] [place] [address] Phone Care Team Providers Care Progressive Die Maker Name Role Phone Physician, Pcp Unknown Primary Care Provider Kimberlee vailable Allergies No known active allergies Medications acetaminophen (TYLENOL 8 HOUR) 650 mg 8 hr tablet Take 1 Tablet by mouth every 8 hours as needed. Active albuterol-budes onide (Airsupra) 90-80 mcg/actuation HFA aerosol inhaler Inhale [...] 1 % topical gel Apply topically. Active ezetimibe-rosuv astatin (Roszet) 10-10 mg tablet Take by mouth. Active fluticasone furoate-vilante roL (BREO ELLIPTA) 100-25 mcg/dose inhaler Inhale into [...] AM EDT Office Visit Orthopedic Surgery - [address] [address] Jorge Palomo, DPM Diabetic mononeuropathy simplex (CMS/HCC V24, CMS/HCC V28) (Primary Dx); Primary osteoarthritis of both feet; Dermatophytosis of nail; Pain in toe of left foot; Pain in toe of right foot from Last 3 Months Medical History Medical History Date Comments Diabetic neuropathy (CMS/HCC V24, CMS/HCC V28) 04/12/2023 DX:Diabetic neuropathy (HCC) Hypercholesterolemia 04/12/2023 DX:Hypercho lesterolemia Obesity [...] DX:Foot ulcer due to seconda ry DM ([facility]) Social History Tobacco Use Types Packs/Day Years [...] AM EST Office Visit Orthopedic Surgery - [place] [address] [address] Jorge Palomo, DPM [address] [phone] Health Maintenance Due Date Last Done Comments [...] complete this topic Insurance [place]ID - [place] [facility] [address] [place] [address] Care Teams Progressive Die Maker Relationship Specialty Start Date End Date Physician, Pcp Unknown PCP - General 01/14/24
--- OUTSIDE RECORDS SUMMARY | 2025-03-05 10:00 | XMS_ITS | Patient Health Record ---
Author Organization [facility] Address [address] [place] [address] Care Team Providers Care Sales Project Administrator Name Role Phone Henok [facility] [...] nts Influenza Unknown 12/23/2019 Administered Social History Social History Drugs/Alcohol: Social Info Question Answer Notes Alcohol Screen Did you have a drink containing alcohol in the past year? Yes How often did you have a drink containing alcohol in the past year? 2 to 4 times a month (2 points) How many drinks did you have on a typical day when you were drinking in the past year? 3 or 4 drinks (1 point) Points 3 Interpretation Negative Additional Details Category Social Info Options Details Miscellaneous: Marital status: Occupation: [employer] - [employer] Living with: with girlfriend Section Notes: Tobacco use is negative, alc ohol: uses 6 alcoholic drinks on weekends. Tobacco use is negative, alc ohol: uses 6 alcoholic drinks on weekends. Problems Problem Type SNOMED Code ICD Code Onset Dates Problem Status W/U Status Risk Notes Problem Change in bowel habit (01765463) Change in bowel habits (R19.4) Active confirmed Plan Of Treatment Future Test Test Name Order Date COLONOSCOPY 01/11/2020 Insurance Providers Payer Name Payer Address Payer Phone Subscriber Number Group Number Insured Name Patient Relationship to Insured Coverage Start Date Coverage End Date MEDICARE OF [place] [address] [place] [address] [id number] FITZ NORRIS Self - patient is the insured MEDICAID OF [facility] [address] [place] [address] [id number] FITZ NORRIS Self - patient is the insured Medical (General) History Medical History History ICD Code hypertension elevated cholesterol coronary disease with history of ND and stent placement diabetes mellitus COPD Surgical History Surgery Date(Month/Year) cardiac catheterization with stent place ment right carotid endarterectomy
--- NOTE | 2025-03-05 10:21 | MHC.OFFVIS ---
Vital Signs 03/05/25 10:22 Height 5 ft 8 in Weight 262 lb 5.601 oz BMI 39.9 BP 120/68 Blood Pressure Location Lt brachial Position Sitting Pulse 69 Pulse Source Monitor Intake Visit Reasons: 1 yr f/up r/s 01-29-25 Allergies lisinopril (Lisinopril) Allergy (Severe, Verified 09/18/21 13:18) ANGIOEDEMA, hives Medication List - Last Reconciled 03/05/25 by AILEEN Moeller albuterol sulfate 90 mcg/actuation (Ventolin HFA) 2 puffs PO Q4-6H PRN aspirin (Adult Low Dose Aspirin) 81 mg PO DAILY atorvastatin 80 mg PO DAILY fluticasone propion-salmeterol 113-14 mcg/actuation 1 inh inhalation DAILY gabapentin 1 cap PO DAILY glipizide 2 tabs PO BID losartan 50 mg PO DAILY metformin 1,000 mg PO BID metoprolol ta-hydrochlorothiaz 50-25 mg 0.5 tabs PO BID tamsulosin 0.8 mg PO DAILY HPI HPI 1 yr f/up r/s 01-29-25: Details: The patient is a 69 year old male presenting for a follow-up visit for coronary artery disease. He has a history of remote RCA stenting approximately 11 years ago. Past medical history is significant for hypertension, obesity, and COPD, which is reportedly well-controlled with daily inhalers without recent flare-ups. A nuclear stress test from 02/21/2024 was likely normal with a calculated ejection fraction of 48% with stress and 61% at rest. An echocardiogram from 03/25/2024 showed an EF of 50-55%, a moderately dilated right ventricle, mild aortic stenosis, and an ascending aorta of 3.9 cm. His A1c from 01/11/2025 was 6.6%. Today he reports some vague left upper chest discomfort that he notices at times when at rest. He does not get any chest discomfort or concerning shortness of breath brought on by exertional activities. He is able to climb his cellar stairs without difficulty. He admits to doing only light activities such as housework and shopping with his . He reports some lightheadedness upon waking but does not consider this a new symptom. He denies any hospitalizations or ER visits in the last year. Current medications include aspirin, atorvastatin, metoprolol, and hydrochlorothiazide, and he reports adherence. [facility] Medical History (Updated 03/05/25 @ 10:55 by Janny Grace NP-C) COPD (chronic obstructive pulmonary disease) Elevated cholesterol Myocardial infarction CAD (coronary artery disease) HTN (hypertension) Surgical History (Updated 03/05/25 @ 10:55 by Janny Grace NP-C) Stented coronary artery History of left-sided carotid endarterectomy History of right-sided carotid endarterectomy Family History Father Heart disease Mother No problems noted. Social History Alcohol intake: current Alcohol intake frequency: a few times a week Alcohol type: beer Second Hand Smoke Exposure: Yes Review of Systems Const All systems reviewed & are unremarkable except as noted in HPI and below Denies weakness ENT Denies dizziness Card Reports chest pain, Reports chest pain at rest, Denies chest pain with activity, Denies syncope, Denies rapid heart rate, Denies pedal edema, Denies edema, Denies leg edema, Denies lightheadedness, Denies palpitations, Denies dyspnea, Denies dyspnea on exertion and Denies orthopnea Resp Denies cough, Denies dyspnea and Denies dyspnea on exertion GI Denies hematochezia and Denies change in stool character Musc Denies abnormal gait, Denies muscle cramps, Denies muscle weakness, Denies numbness, Denies radiating pain into limb and Denies tingling Neuro Denies abnormal gait, Denies dizziness, Denies syncope, Denies numbness, Denies tingling and Denies weakness Endo Denies palpitations Physical Exam Vital Signs: Last Vital Signs Pulse 69 03/05/25 10:22 BP 120/68 03/05/25 10:22 BMI result Body Mass Index 39.9 Const General: cooperative, healthy appearing, comfortable and no acute distress Orientation/consciousness: patient oriented x3 Neck Neck: Yes normal visual inspection Resp Effort & Inspection: normal respiratory effort Auscultation: clear to auscultation bilaterally, no rales, no rhonchi and no wheezes Cardio Rate: regular rate Rhythm: regular rhythm Heart sounds: S1 normal heart sound present, S2 normal heart sound present, no gallops, no murmurs and no rubs Neuro General: patient oriented x3 Extrem General: Yes normal to inspection, No no pedal edema and No calf tenderness Psych Appearance: grossly normal Mental Status: mental status grossly normal Speech and movement: Normal speech and movement present Office Procedures EKG Details: Today, read by me, normal sinus rhythm, rate 69, QTC 415 milliseconds [id number], Complete Assessment & Plan Assessment & Plan (1) CAD (coronary artery disease): Code(s): I25.10 - Atherosclerotic heart disease of [place] coronary artery without angina pectoris Category: Medical Plan: History of CAD with a remote RCA stent. Nuclear stress test last year did not show ischemia. Last echo showed normal EF and no wall motion abnormalities. Currently no anginal symptoms. Continue aspirin indefinitely. Continue atorvastatin with ideal LDL goal less than 70. Continue metoprolol. Signs and symptoms of angina reviewed. Cardiology follow-up 1 year. (2) Stented coronary artery: Comment: Bare metal stent to distal RCA for acute coronary syndrome, August 2013 Code(s): Z95.5 - Presence of coronary angioplasty implant and graft Category: Surgical Plan: As above (3) HTN (hypertension): Code(s): I10 - Essential (primary) hypertension Category: Medical Plan: Blood pressure goal less than 130/80. Well controlled. No med changes made. Continue metoprolol and hydrochlorothiazide (4) Hyperlipidemia: Code(s): E78.5 - Hyperlipidemia, unspecified Category: Medical Plan: [place] LDL goal less than 70. Labs 01/11/2025 showed LDL 44. Continue atorvastatin (5) Aortic stenosis: Code(s): I35.0 - Nonrheumatic aortic (valve) stenosis Category: Medical Plan: Last echocardiogram showing mild aortic stenosis. Will update echo prior to his next visit. Plan I discussed with the patient that his heart ultrasound from March showed that his heart was strong, though it revealed mild aortic stenosis, which is a slight stiffening of a heart valve. I explained that this typically does not change quickly but can progress over years. We will monitor this with another ultrasound of the heart before his next visit in a year. I informed him that if the valve were to become severely stiffened down the road, a common treatment is a catheter-based valve replacement. I reassured him that his vague chest discomfort at rest is not concerning, especially since his nuclear stress test last year was normal and he has no symptoms with activity. I advised him to let us know if his symptoms change or if he develops chest discomfort with activity. The plan is for him to follow up in one year. Orders: Orders CA echo transthoracic complete 11 Months I25.10 - Atherosclerotic heart disease of [place] coronary artery without angina pectoris, I35.0 - Nonrheumatic aortic (valve) stenosis Patient Instructions: - Continue taking all your medications as prescribed. - We will schedule another ultrasound of your heart (echocardiogram) in about a year, before your next appointment. - Please let us know if you start to have any new chest squeezing, pressure, or tightness that comes on with activity like walking or climbing stairs. - You should return for a follow-up appointment in one year. Patient was informed and verbally consented to the use of an ambient scribe for clinic note documentation during this visit. Visit time spent on chart review, interview, assessment, orders, documentation. Coding Level of Care Code Est Pt Level 4 (20241) Add On Problem Visit Only Diagnoses CAD (coronary artery disease) I25.10 Stented coronary artery Z95.5 HTN (hypertension) I10 Hyperlipidemia E78.5 Aortic stenosis I35.0 CPT Codes EKG - CPT: 84933-[id number], Complete ([id number]) Time Spent (min) 28
[2025-03-05 10:22] VITALS: BP 120/68; PULSE 69; BMI 39.9
== END 2025-03-05 10:52 | disposition home or self-care (01) ==
PROVIDERS: PCP Physician Assistant; Visit Provider Nurse Practitioner Family
DX: I25.10 Atherosclerotic heart disease of native coronary artery without angina pectoris (principal); Z95.5 Presence of coronary angioplasty implant and graft; I10 Essential (primary) hypertension; E78.5 Hyperlipidemia, unspecified; I35.0 Nonrheumatic aortic (valve) stenosis
CPT/HCPCS: 93010; 99214; G2211

== ENCOUNTER → 2025-03-05 09:56 | Outpatient (BNVA) | payer MEDICARE, SELFPAY | PROVIDERS: PCP Physician Assistant; Visit Provider Nurse Practitioner Family | DX: I25.10 Atherosclerotic heart disease of native coronary artery without angina pectoris (principal); I10 Essential (primary) hypertension; E78.5 Hyperlipidemia, unspecified; I35.0 Nonrheumatic aortic (valve) stenosis; Z95.5 Presence of coronary angioplasty implant and graft; Z79.82 Long term (current) use of aspirin | CPT/HCPCS: 93005; 99212 ==